=== PATIENT | male | born 1960 | race Caucasian/White ===

== ENCOUNTER → 2017-12-17 12:34 | Outpatient (CLI) | payer OTHER, SELFPAY ==
[2017-12-17 13:10] LABS: Hematocrit 40.4 % (41-53); Hemoglobin 13.9 g/dL (13.5-17.5)
[2017-12-17 13:52] LABS: BUN Creatinine Ratio 26.3 (6-22); Calcium 9.5 mg/dL (8.4-10.2); Estimated Glomerular Filt Rate 44.6 mL/min (>60); Glucose 155 mg/dL (70-100); HEMOLYSIS < 15 (0-50); Sodium 140 mmol/L (137-145)
[2017-12-17 13:56] LABS: Potassium 5.7 mmol/L (3.4-5.1)
[2017-12-17 16:25] LABS: Creatinine Urine Random 158.6 mg/dL; Protein (Total) Urine Random 84 mg/dL (0-12); Protein Creatinine Ratio Urine 0.52 GRAM/24H
[2017-12-19 13:49] LABS: Parathyroid Hormone Int 49 pg/mL (14-64)
== END ==
PROVIDERS: PCP Internal Medicine; Visit Provider Student in an Organized Health Care Education/Training Program
DX: N05.9 Unspecified nephritic syndrome with unspecified morphologic changes (principal); D64.9 Anemia, unspecified; N25.81 Secondary hyperparathyroidism of renal origin; R80.9 Proteinuria, unspecified
CPT/HCPCS: 36415; 80048; 82570; 83970; 84156; 85014; 85018

== ENCOUNTER → 2017-12-20 07:12 | Outpatient (CLI) | payer OTHER, SELFPAY ==
[2017-12-20 08:36] LABS: Hematocrit 39.9 % (41-53)
[2017-12-20 09:02] LABS: BUN Creatinine Ratio 23.1 (6-22); Calcium 9.6 mg/dL (8.4-10.2); Estimated Glomerular Filt Rate 56.7 mL/min (>60); Glucose 126 mg/dL (70-100); HEMOLYSIS < 15 (0-50); Potassium 4.8 mmol/L (3.4-5.1); Sodium 142 mmol/L (137-145)
[2017-12-20 10:20] LABS: Creatinine Urine Random 81.1 mg/dL
[2017-12-20 10:29] LABS: Protein (Total) Urine Random 236 mg/dL (0-12)
[2017-12-24 14:25] LABS: Parathyroid Hormone Int 60 pg/mL (14-64)
== END ==
PROVIDERS: PCP Internal Medicine; Visit Provider Student in an Organized Health Care Education/Training Program
DX: N05.9 Unspecified nephritic syndrome with unspecified morphologic changes (principal); D64.9 Anemia, unspecified; N25.81 Secondary hyperparathyroidism of renal origin; R80.9 Proteinuria, unspecified; E87.5 Hyperkalemia
CPT/HCPCS: 36415; 80048; 82570; 83970; 84132; 84156; 85014; 85018

== ENCOUNTER → 2017-12-24 16:48 | Outpatient (CLI) | payer OTHER, SELFPAY ==
[2017-12-24 19:27] LABS: Alanine Aminotransferase 44 IU/L (21-72); Blood Urea Nitrogen 32 mg/dL (9-20); Calcium 9.3 mg/dL (8.4-10.2); Carbon Dioxide 27 mmol/L (22-32); Chloride 97 mmol/L (98-107); Cholesterol 171 mg/dL (140-199); Creatine Kinase 193 U/L (55-170); Estimated Glomerular Filt Rate 44.6 mL/min (>60); Glucose 124 mg/dL (70-100); HDL Cholesterol 44 mg/dL (40-60); HEMOLYSIS < 15 (0-50); LDL Cholesterol Calculated 91 mg/dL (<100); Potassium 4.7 mmol/L (3.4-5.1); Sodium 139 mmol/L (137-145); Triglycerides 179 mg/dL (35-150)
== END ==
PROVIDERS: PCP Internal Medicine; Visit Provider Internal Medicine Interventional Cardiology
DX: I25.110 Atherosclerotic heart disease of native coronary artery with unstable angina pectoris (principal)
CPT/HCPCS: 36415; 80048; 80061; 82550; 84460

== ENCOUNTER → 2017-12-31 16:59 | Outpatient (CLI) | payer OTHER, SELFPAY | PROVIDERS: PCP Internal Medicine; Visit Provider Student in an Organized Health Care Education/Training Program | DX: E87.5 Hyperkalemia (principal) ==

== ENCOUNTER → 2018-01-01 16:50 | Outpatient (CLI) | payer OTHER, SELFPAY ==
[2018-01-01 18:54] LABS: HEMOLYSIS < 15 (0-50)
== END ==
PROVIDERS: PCP Internal Medicine; Visit Provider Student in an Organized Health Care Education/Training Program
DX: E87.5 Hyperkalemia (principal)
CPT/HCPCS: 36415; 84132

== ENCOUNTER → 2018-03-19 08:46 | Outpatient (CLI) | payer OTHER, SELFPAY ==
[2018-03-19 10:17] LABS: Hematocrit 39.5 % (41-53); Hemoglobin 13.5 g/dL (13.5-17.5)
[2018-03-19 11:24] LABS: BUN Creatinine Ratio 26.4 (6-22); Blood Urea Nitrogen 37 mg/dL (9-20); Calcium 9.6 mg/dL (8.4-10.2); Carbon Dioxide 30 mmol/L (22-32); Chloride 100 mmol/L (98-107); Estimated Glomerular Filt Rate 51.9 mL/min (>60); Glucose 147 mg/dL (70-100); HEMOLYSIS < 15 (0-50); Potassium 4.5 mmol/L (3.4-5.1); Sodium 140 mmol/L (137-145)
[2018-03-19 12:16] LABS: Creatinine Urine Random 77.9 mg/dL; Protein (Total) Urine Random 57 mg/dL (0-12); Protein Creatinine Ratio Urine 0.73 GRAM/24H
[2018-03-21 14:30] LABS: Parathyroid Hormone Int 58 pg/mL (14-64)
== END ==
PROVIDERS: PCP Internal Medicine; Visit Provider Student in an Organized Health Care Education/Training Program
DX: N05.9 Unspecified nephritic syndrome with unspecified morphologic changes (principal); D64.9 Anemia, unspecified; R80.9 Proteinuria, unspecified
CPT/HCPCS: 36415; 80048; 82570; 83970; 84156; 85014; 85018

== ENCOUNTER → 2018-04-25 15:35 | Outpatient (CLI) | payer OTHER, SELFPAY ==
[2018-04-25 17:33] LABS: HEMOLYSIS < 15 (0-50); Potassium 4.7 mmol/L (3.4-5.1)
== END ==
PROVIDERS: PCP Internal Medicine; Visit Provider Student in an Organized Health Care Education/Training Program
DX: E87.5 Hyperkalemia (principal)
CPT/HCPCS: 36415; 84132

== ENCOUNTER → 2018-05-27 07:55 | Outpatient (CLI) | payer OTHER, SELFPAY ==
--- NOTE | 2018-05-27 | DI.NM.S_ITS ---
PROCEDURE: NM ANASTASIA PERF SPECT R&S PHARM Rest and pharmacological stress myocardial perfusion SPECT with gated imaging and ejection fraction RADIOPHARMACEUTICAL: 25.4 mCi Tc-99m tetrafosmin IV at rest and 25.5 mCi Tc-99m tetrafosmin IV at peak effect of pharmacological stress. Krg-bjm-vgbmuncy was performed. INDICATIONS: Atherosclerotic heart disease of [place] coronary TECHNIQUE: Radiopharmaceutical was injected at peak stress test, and also at rest. SPECT images were obtained. SPECT myocardial perfusion images were displayed in short axis, horizontal long axis, and vertical long axis views. Gated images were reviewed using [employer] software. COMPARISON: None. CARDIAC STRESS: Patient exercised for 7 METs and couldn't reach target heart rate as he is on metoprolol. Therefore, study was switched to lexiscan. A pharmacologic stress test was performed under the supervision of an attending staff, using an infusion of 0.4mg IV X1. Hemodynamic data: There is normal blood pressure and heart rate response to pharmacologic stress. Symptoms: The patient had anginal chest pain with exercise. Aminophylline: none EKG: Resting ECG showing sinus rhythm with non-specific T changes. With exercise, there are mild downsloping ST depressions in the inferior leads and mild to moderate downsloping depressions in the anterior leads. Rare PVCs present. FINDINGS: Raw data: There is good myocardial uptake of radiotracer. No significant motion artifacts. Huub-yn-iheha ratio is 0.42 (normal is less than 0.38 for tetrafosmin tracer). Left ventricle function: Gated images demonstrate subtle lateral wall hypokinesis. No transient ischemic dilation; TID is 1.18 (normal less than 1.3). Left ventricle resting end diastolic volume is 150 mL. Left ventricle stress ejection fraction is 55% ; normal range is above 45%. Myocardial perfusion: There is a mild resting defect in the inferior and lateral wall that worsens significantly with stress, suggesting prior infarction and significant ischemia. There is a reversible defect in the distal anterior wall and the apex, suggesting ischemia. SSS 25, SRS 10. IMPRESSION: Abnormal study consistent with prior infarction and significant ischemia. 1) Abnormal perfusion images. There is a mild resting defect in the inferior and lateral wall that worsens significantly with stress, suggesting prior infarction and significant ischemia. There is a reversible defect in the distal anterior wall and the apex, suggesting ischemia. SSS 25, SRS 10. 2) Mildly enlarged left ventricle with normal function (EF post stress 55%). 3) Lung/Heart ratio of 0.42 is mildly elevated, suggesting elevated left sided filling pressures. 4) ECG suggestive of ischemia. There are mild downsloping ST depressions in the inferior leads and mild to moderate downsloping depressions in the anterior leads. 5) Angina occurred during the exercise stress portion of the study. 6) Reduced exercise capacity (7.0 METs). Target heart rate not reached due to metoprolol use. Study switched to lexiscan. 7) Compared to the prior nuclear stress test done 06/11/2017, no significant change noted based on the report. Dictated by: Sia Rosenberg MD on 05/28/2018 at 17:15 Approved by: Sia Rosenberg MD on 05/28/2018 at 17:26
--- NOTE | 2018-05-27 09:33 | P.PCN_ITS ---
Cardiac Stress Test Report Referral & Results Date Patient Seen: 05/27/18 Time Patient Seen: 09:31 Requesting provider: Seamus Lewis Indication: Chest pain in patient with known coronary disease Rest ECG: Nonspecific interventricular conduction delay Procedure Note: Today following both written and verbal informed consent the patient was exercised according to a standard Devendra protocol patient went for a total of something over 6 min, however it was clear he was failing to achieve any blood pressure or heart rate targets because he had taken his beta-selene at direction of his resident care provider night before the procedure. Therefore this was converted to a Lexiscan treadmill. The treadmill was reduced to 1 mi an hours no elevation in he was administered Lexiscan material. He then was immediately administered the Cardiolite tracer. He spent an additional 2 and 0.5 min on the treadmill at 1 mi an hour with no elevation. He experience some mild dyspnea and leg heaviness. At that point the treadmill was stopped and he was returned to the [facility] in the supine position Over the next 3-5 minutes his dyspnea improved significantly although did not become absent His heart rate and blood pressure quickly dropped back to baseline levels with cessation of activity With exercise that was the beginning of nonspecific ST-T segment changes with downsloping ST segments in leads V2 through V4 and may be V5 and 6 flattening. In recovery there was clear T-wave inversions in these leads as well as inferior leads. Patient was also given Cardiolite through a previously started Hep-Lock IV by the nuclear criticality safety engineer approximately 1 minute prior to the cessation of exercise. Impression: Nonspecific ST changes with activity as above. However given this was terminated early because of inability of patient to meet heart rate blood pressure targets will determine ischemia status based on results of his perfusion imaging. Please note: Actual ECG tracings can be found in the PACS system.
[2018-05-27 11:25] LABS: Cholesterol 117 mg/dL (140-199); Creatine Kinase 51 U/L (55-170); HDL Cholesterol 34 mg/dL (40-60); LDL Cholesterol Calculated 51 mg/dL (<100); Triglycerides 161 mg/dL (35-150)
[2018-05-29 14:25] LABS: Aldolase 2.9 U/L (< 8.2)
== END ==
PROVIDERS: Family Provider Internal Medicine; PCP Internal Medicine; Visit Provider Internal Medicine Cardiovascular Disease
DX: I25.9 Chronic ischemic heart disease, unspecified (principal); I25.10 Atherosclerotic heart disease of native coronary artery without angina pectoris; E78.5 Hyperlipidemia, unspecified; I10 Essential (primary) hypertension; I25.2 Old myocardial infarction
CPT/HCPCS: 36415; 78452; 80061; 82085; 82550; 93016; 93017; 93018; A9502; J2785

== ENCOUNTER → 2018-07-04 10:22 | Outpatient (CLI) | payer OTHER, SELFPAY ==
[2018-07-04 12:06] LABS: Hematocrit 41.4 % (41-53); Hemoglobin 13.8 g/dL (13.5-17.5)
[2018-07-04 13:22] LABS: BUN Creatinine Ratio 22.3 (6-22); Blood Urea Nitrogen 29 mg/dL (9-20); Calcium 9.7 mg/dL (8.4-10.2); Carbon Dioxide 28 mmol/L (22-32); Chloride 101 mmol/L (98-107); Estimated Glomerular Filt Rate 56.5 mL/min (>60); Glucose 216 mg/dL (70-100); HEMOLYSIS < 15 (0-50); Sodium 141 mmol/L (137-145)
[2018-07-04 13:24] LABS: Potassium 5.6 mmol/L (3.4-5.1)
[2018-07-04 14:59] LABS: Creatinine Urine Random 156.2 mg/dL; Protein (Total) Urine Random 109 mg/dL (0-12); Protein Creatinine Ratio Urine 0.69 GRAM/24H
[2018-07-05 12:25] LABS: Parathyroid Hormone Int 13 pg/mL (14-64)
== END ==
PROVIDERS: PCP Internal Medicine; Visit Provider Student in an Organized Health Care Education/Training Program
DX: N05.9 Unspecified nephritic syndrome with unspecified morphologic changes (principal); D64.9 Anemia, unspecified; N25.81 Secondary hyperparathyroidism of renal origin; R80.9 Proteinuria, unspecified
CPT/HCPCS: 36415; 80048; 82570; 83970; 84156; 85014; 85018

== ENCOUNTER → 2018-07-17 09:13 | Outpatient (CLI) | payer OTHER, SELFPAY ==
[2018-07-17 10:24] LABS: BUN Creatinine Ratio 22.7 (6-22); Blood Urea Nitrogen 25 mg/dL (9-20); Calcium 9.7 mg/dL (8.4-10.2); Carbon Dioxide 28 mmol/L (22-32); Chloride 100 mmol/L (98-107); Estimated Glomerular Filt Rate > 60.0 mL/min (>60); Glucose 166 mg/dL (70-100); HEMOLYSIS < 15 (0-50); Sodium 140 mmol/L (137-145)
[2018-07-17 10:26] LABS: Potassium 5.5 mmol/L (3.4-5.1)
== END ==
PROVIDERS: Family Provider Internal Medicine; PCP Internal Medicine; Visit Provider Student in an Organized Health Care Education/Training Program
DX: N05.9 Unspecified nephritic syndrome with unspecified morphologic changes (principal)
CPT/HCPCS: 36415; 80048

== ENCOUNTER → 2018-08-16 09:06 | Outpatient (CLI) | payer OTHER, SELFPAY ==
[2018-08-16 09:42] LABS: BUN Creatinine Ratio 18.1 (6-22); Blood Urea Nitrogen 29 mg/dL (9-20); Calcium 9.2 mg/dL (8.4-10.2); Carbon Dioxide 28 mmol/L (22-32); Chloride 101 mmol/L (98-107); Estimated Glomerular Filt Rate 44.5 mL/min (>60); Glucose 147 mg/dL (70-100); HEMOLYSIS < 15 (0-50); Sodium 139 mmol/L (137-145)
[2018-08-16 09:53] LABS: Potassium 5.4 mmol/L (3.4-5.1)
== END ==
PROVIDERS: Family Provider Internal Medicine; PCP Internal Medicine; Visit Provider Student in an Organized Health Care Education/Training Program
DX: N05.9 Unspecified nephritic syndrome with unspecified morphologic changes (principal)
CPT/HCPCS: 36415; 80048

== ENCOUNTER → 2018-08-25 16:01 | Outpatient (CLI) | payer OTHER, SELFPAY ==
[2018-08-25 18:26] LABS: BUN Creatinine Ratio 16.8 (6-22); Blood Urea Nitrogen 32 mg/dL (9-20); Calcium 9.4 mg/dL (8.4-10.2); Carbon Dioxide 27 mmol/L (22-32); Chloride 97 mmol/L (98-107); Estimated Glomerular Filt Rate 36.5 mL/min (>60); Glucose 120 mg/dL (70-100); HEMOLYSIS < 15 (0-50); Potassium 4.7 mmol/L (3.4-5.1); Sodium 135 mmol/L (137-145)
== END ==
PROVIDERS: Family Provider Internal Medicine; PCP Internal Medicine; Visit Provider Student in an Organized Health Care Education/Training Program
DX: N05.9 Unspecified nephritic syndrome with unspecified morphologic changes (principal)
CPT/HCPCS: 36415; 80048

== ENCOUNTER → 2018-09-22 15:58 | Outpatient (CLI) | payer OTHER, SELFPAY ==
[2018-09-22 17:43] LABS: BUN Creatinine Ratio 20.7 (6-22); Blood Urea Nitrogen 29 mg/dL (9-20); Calcium 9.3 mg/dL (8.4-10.2); Carbon Dioxide 27 mmol/L (22-32); Chloride 102 mmol/L (98-107); Estimated Glomerular Filt Rate 51.9 mL/min (>60); Glucose 141 mg/dL (70-100); HEMOLYSIS < 15 (0-50); Potassium 4.7 mmol/L (3.4-5.1); Sodium 139 mmol/L (137-145)
== END ==
PROVIDERS: Family Provider Internal Medicine; PCP Internal Medicine; Visit Provider Student in an Organized Health Care Education/Training Program
DX: N05.9 Unspecified nephritic syndrome with unspecified morphologic changes (principal)
CPT/HCPCS: 36415; 80048

== ENCOUNTER → 2018-10-04 09:44 | Outpatient (CLI) | payer OTHER, SELFPAY ==
[2018-10-04 10:37] LABS: BUN Creatinine Ratio 22.3 (6-22); Blood Urea Nitrogen 29 mg/dL (9-20); Calcium 9.1 mg/dL (8.4-10.2); Carbon Dioxide 28 mmol/L (22-32); Chloride 101 mmol/L (98-107); Estimated Glomerular Filt Rate 56.5 mL/min (>60); Glucose 213 mg/dL (70-100); HEMOLYSIS < 15 (0-50); Potassium 5.1 mmol/L (3.4-5.1); Sodium 139 mmol/L (137-145)
[2018-10-04 10:52] LABS: Creatinine Urine Random 137.5 mg/dL; Protein (Total) Urine Random 62 mg/dL (0-12); Protein Creatinine Ratio Urine 0.45 GRAM/24H
[2018-10-07 13:53] LABS: Parathyroid Hormone Int 114 pg/mL (14-64)
== END ==
PROVIDERS: Family Provider Internal Medicine; PCP Internal Medicine; Visit Provider Student in an Organized Health Care Education/Training Program
DX: N05.9 Unspecified nephritic syndrome with unspecified morphologic changes (principal); R80.9 Proteinuria, unspecified; N25.81 Secondary hyperparathyroidism of renal origin
CPT/HCPCS: 36415; 80048; 82570; 83970; 84156

== ENCOUNTER → 2019-01-02 16:47 | Outpatient (CLI) | payer OTHER, SELFPAY ==
[2019-01-02 17:49] LABS: BUN Creatinine Ratio 22.1 (6-22); Blood Urea Nitrogen 31 mg/dL (9-20); Calcium 9.5 mg/dL (8.4-10.2); Carbon Dioxide 27 mmol/L (22-32); Chloride 104 mmol/L (98-107); Estimated Glomerular Filt Rate 51.9 mL/min (>60); Glucose 149 mg/dL (70-100); HEMOLYSIS < 15 (0-50); Potassium 5.3 mmol/L (3.4-5.1); Sodium 138 mmol/L (137-145)
[2019-01-02 18:46] LABS: Creatinine Urine Random 280.3 mg/dL; Protein (Total) Urine Random 86 mg/dL (0-12)
== END ==
PROVIDERS: Family Provider Internal Medicine; PCP Internal Medicine; Visit Provider Student in an Organized Health Care Education/Training Program
DX: N05.9 Unspecified nephritic syndrome with unspecified morphologic changes (principal); N25.81 Secondary hyperparathyroidism of renal origin; R80.9 Proteinuria, unspecified
CPT/HCPCS: 36415; 80048; 82570; 83970; 84156

== ENCOUNTER → 2019-01-23 14:50 | Outpatient (CLI) | payer OTHER, SELFPAY ==
[2019-01-23 16:27] LABS: HEMOLYSIS < 15 (0-50); Potassium 4.3 mmol/L (3.4-5.1)
== END ==
PROVIDERS: Family Provider Internal Medicine; PCP Internal Medicine; Visit Provider Student in an Organized Health Care Education/Training Program
DX: E87.5 Hyperkalemia (principal)
CPT/HCPCS: 36415; 84132

== ENCOUNTER → 2019-04-09 14:04 | Outpatient (CLI) | payer OTHER, SELFPAY ==
[2019-04-09 14:23] LABS: Hematocrit 40.5 % (41-53); Hemoglobin 13.9 g/dL (13.5-17.5)
[2019-04-09 14:43] LABS: BUN Creatinine Ratio 20.8 (6-22); Blood Urea Nitrogen 27 mg/dL (9-20); Calcium 9.2 mg/dL (8.4-10.2); Carbon Dioxide 28 mmol/L (22-32); Chloride 103 mmol/L (98-107); Estimated Glomerular Filt Rate 56.3 mL/min (>60); Glucose 135 mg/dL (80-110); HEMOLYSIS < 15 (0-50); Potassium 4.6 mmol/L (3.4-5.1); Sodium 140 mmol/L (137-145)
[2019-04-09 15:58] LABS: Creatinine Urine Random 124.3 mg/dL; Protein (Total) Urine Random 82 mg/dL (0-12); Protein Creatinine Ratio Urine 0.65 GRAM/24H
[2019-04-11 16:06] LABS: Parathyroid Hormone Int 97 pg/mL (14-64)
== END ==
PROVIDERS: PCP Internal Medicine; Visit Provider Student in an Organized Health Care Education/Training Program
DX: N05.9 Unspecified nephritic syndrome with unspecified morphologic changes (principal); R80.9 Proteinuria, unspecified; D64.9 Anemia, unspecified; N25.81 Secondary hyperparathyroidism of renal origin
CPT/HCPCS: 36415; 80048; 82570; 83970; 84156; 85014; 85018

== ENCOUNTER → 2019-04-10 16:19 | Outpatient (CLI) | payer OTHER, SELFPAY ==
--- NOTE | 2019-04-10 | DI.US.S_ITS ---
PROCEDURE: US RENAL COMPLETE INDICATIONS: CALCULUS OF KIDNEY TECHNIQUE: Real-time scanning was performed of the kidneys and bladder, with image documentation. COMPARISON: [facility], , RENAL COMPLETE, 11/22/2015, 14:29. FINDINGS: Kidneys: Kidneys are normal in size. Right kidney measures 10.0 cm long; left kidney measures 11.7 cm long. Right renal cortical thickness is 1.6 cm; left renal cortical thickness is 1.8 cm. Renal cortical echotexture is normal. No hydronephrosis or nephrolithiasis. No suspicious solid mass lesions. Left renal cyst measuring 17 mm. Bladder: Pre-void bladder volume is 128 mL. Post-void residual is 5 mL. Pre-void images demonstrate no intraluminal masses or stones. On pre-void images, bilateral ureteral jets are noted with color Doppler interrogation. (Of note, ureteral jets may not be detectable in up to 25% of cases due to insufficient differences in specific gravity between ureteral and bladder urine). Miscellaneous: No free pelvic fluid. IMPRESSION: Left renal cyst. No source for flank pain identified. Dictated by: Arnold SALTER Interpreted: Sonam Sanchez MD on 04/10/2019 at 17:14 Approved by: Sonam Sanchez M.D. on 04/10/2019 at 17:37
== END ==
PROVIDERS: PCP Internal Medicine; Visit Provider Internal Medicine
DX: N20.0 Calculus of kidney (principal); N28.1 Cyst of kidney, acquired
CPT/HCPCS: 76770

== ENCOUNTER → 2019-04-24 16:48 | Outpatient (CLI) | payer OTHER, SELFPAY ==
[2019-04-24 17:37] LABS: Hematocrit 40.4 % (41-53); Hemoglobin 13.7 g/dL (13.5-17.5)
[2019-04-24 17:53] LABS: BUN Creatinine Ratio 28.8 (6-22); Blood Urea Nitrogen 46 mg/dL (9-20); Calcium 9.7 mg/dL (8.4-10.2); Carbon Dioxide 25 mmol/L (22-32); Chloride 102 mmol/L (98-107); Estimated Glomerular Filt Rate 44.3 mL/min (>60); Glucose 107 mg/dL (80-110); HEMOLYSIS < 15 (0-50); Potassium 4.7 mmol/L (3.4-5.1); Sodium 140 mmol/L (137-145)
[2019-04-26 16:09] LABS: Creatinine Urine Random 181.7 mg/dL; Protein (Total) Urine Random 128 mg/dL (0-12)
[2019-04-28 14:56] LABS: Parathyroid Hormone Int 24 pg/mL (14-64)
== END ==
PROVIDERS: PCP Internal Medicine; Visit Provider Student in an Organized Health Care Education/Training Program
DX: N05.9 Unspecified nephritic syndrome with unspecified morphologic changes (principal); D64.9 Anemia, unspecified; N25.81 Secondary hyperparathyroidism of renal origin; R80.9 Proteinuria, unspecified
CPT/HCPCS: 36415; 80048; 82570; 83970; 84156; 85014; 85018

== ENCOUNTER 2019-05-04 17:34 | Emergency (ER) | payer OTHER, SELFPAY ==
[2019-05-04 17:35] VITALS: BP 125/79; PULSE 65; RESP 16; TEMP 36.7; O2SAT 95; BMI 30.7
--- NOTE | 2019-05-04 17:52 | DI.RAD.S_ITS ---
PROCEDURE: XR CHEST 1V INDICATIONS: syncope TECHNIQUE: One view of the chest was acquired. COMPARISON: [facility], , CHEST 1 VIEW, 07/13/2017, 12:31. FINDINGS: Surgical changes and devices: None. Lungs and pleura: Lungs are clear. No pleural effusions or pneumothorax. Mediastinum: Mediastinal contours appear normal. Heart size is normal. Bones and chest wall: No suspicious bony lesions. Overlying soft tissues appear unremarkable. IMPRESSION: No acute cardiopulmonary pathology. Dictated by: Aleksandr Aiken M.D. on 05/04/2019 at 18:46 Approved by: Aleksandr Aiken M.D. on 05/04/2019 at 18:46
--- NOTE | 2019-05-04 17:57 | PC.NURSE ---
Patient was receiving electrical stimulation for bilateral shoulder PT. Patient was sitting up right in chair and felt things go dark PT noticed patient stopped talking and was not responding for a short period of time. Patient recalls hearing them call his name. patient arrives feeling very fatigued. Denies chest pain or SOB at present. States some nausea before the event. This was patients first PT appointment and first time with this electrical therapy. patient states it was a 15min session where they had heat pads on his neck.
[2019-05-04 18:01] LABS: Add Manual Diff / Slide Review NO; Basophils Absolute Auto 100 /uL (0-100); Basophils Percent Auto 0.8 % (0-2); Eosinophils Absolute Auto 200 /uL (0-450); Eosinophils Percent Auto 1.4 % (2-4); Hematocrit 40.9 % (41-53); Hemoglobin 14.1 g/dL (13.5-17.5); Lymphocytes Absolute Auto 3500 /uL (1100-4500); Lymphocytes Percent Auto 25.8 % (25-40); Mean Corpuscular HGB Conc 34.5 % (30-36); Mean Corpuscular Hemoglobin 30.6 PG (26-34); Mean Corpuscular Volume 88.7 fL (80-100); Monocytes Absolute Auto 1000 /uL (0-900); Monocytes Percent Auto 7.2 % (3-14); Neutrophils Absolute Auto 8700 /uL (1500-7000); Neutrophils Percent Auto 64.8 % (50-75); Platelet Count 291 X10^3/uL (150-400); Prothrombin Time 11.4 SECONDS (10.1-12.7); Red Blood Cell Count 4.62 X10^6/uL (4.5-5.9); Red Cell Distribution Width 13.3 % (11.6-14.8); White Blood Cell Count 13.4 X10^3/uL (4.5-11.0)
[2019-05-04 18:04] LABS: PTT Partial Thromboplastin Tim 24 SECONDS (26.4-36.2)
[2019-05-04 18:06] LABS: Alanine Aminotransferase 25 IU/L (21-72); Albumin 4.4 g/dL (3.5-5.0); Albumin Globulin Ratio 1.4 (1.0-2.8); Alkaline Phosphatase 55 U/L (38-126); Aspartate Aminotransferase 30 IU/L (17-59); Bilirubin Total 0.7 mg/dL (0.2-1.3); Blood Urea Nitrogen 34 mg/dL (9-20); Calcium 9.1 mg/dL (8.4-10.2); Carbon Dioxide 24 mmol/L (22-32); Chloride 100 mmol/L (98-107); Creatine Kinase 75 U/L (55-170); Estimated Glomerular Filt Rate 34.3 mL/min (>60); Globulin 3.2 g/dL (1.7-4.1); Glucose 169 mg/dL (80-110); HEMOLYSIS 34 (0-50); Potassium 4.8 mmol/L (3.4-5.1); Sodium 138 mmol/L (137-145); Total Protein 7.6 g/dL (6.3-8.2)
[2019-05-04 18:18] LABS: Troponin I < 0.012 ng/mL (0.01-0.034)
--- NOTE | 2019-05-04 18:20 | ED_ITS ---
HPI - General Adult General Chief complaint: Syncope Stated complaint: syncope Time Seen by Provider: 05/04/19 17:52 Source: patient and EMS Mode of arrival: EMS Limitations: no limitations History of Present Illness HPI narrative: A 59-year-old male here for evaluation of an episode that occurred prior to arrival here in the ER. Patient was at his orthopedic physical therapy appointment. He states that this was his 1st physical therapy appointment for bilateral shoulder issues. Apparently he was undergoing tens stimulation when he apparently became very lightheaded. He stated that just prior to this event he was very nauseated. He did not vomit. Had no chest pain or palpitations or headache. he is unsure if he exactly lost consciousness however the next thing he remembers was a physical therapist calling his name. No loss of bowel or bladder. No reported seizure-like activity. Upon my evaluation patient stated that he he felt tired. He did admit that he did not drink water as he normally does today. Related Data Home Medications Medication Instructions Recorded Confirmed aspirin 81 mg PO DAILY #0 06/23/08 05/04/19 amlodipine 10 mg PO DAILY #0 07/06/16 05/04/19 glipizide [Glucotrol XL] 2.5 mg PO DAILY #0 08/16/16 05/04/19 allopurinol 100 mg tablet 100 mg PO DAILY 07/16/18 05/04/19 cholecalciferol (vitamin D3) 2,000 2,000 unit PO DAILY 07/16/18 05/04/19 unit capsule clopidogrel 75 mg tablet 75 mg PO DAILY 07/16/18 05/04/19 coQ10 (ubiquinol) 1 cap PO DAILY 07/16/18 05/04/19 isosorbide mononitrate 60 mg 60 mg PO DAILY 07/16/18 02/18/19 tablet,extended release 24 hr levothyroxine 125 mcg capsule 125 mcg PO DAILY 07/16/18 05/04/19 metoprolol succinate 25 mg capsule 25 mg PO DAILY 07/16/18 05/04/19 sprinkle, ext. release 24 hr omega-3 acid ethyl esters 1 gram 1 cap PO DAILY 07/16/18 05/04/19 capsule rosuvastatin 10 mg tablet 20 mg PO DAILY 07/16/18 02/18/19 hydrochlorothiazide 25 mg PO BID 05/04/19 levothyroxine 224 mcg PO DAILY 05/04/19 losartan 75 mg PO DAILY 05/04/19 05/04/19 patiromer calcium sorbitex 8.4 g PO DAILY 05/04/19 05/04/19 [Veltassa] Allergies Allergy/AdvReac Type Severity Reaction Status Date / Time HAKAN Inhibitors AdvReac Intermediate Verified 07/16/18 08:34 [HAKAN INHIBITORS] simvastatin [SIMVASTATIN] AdvReac Intermediate muscle Verified 07/16/18 08:34 aches, upset stomach Review of Systems Constitutional Constitutional: Denies fever(s), Denies headache(s) and Denies weakness ENT Ears, Nose, Mouth, and Throat: Denies vertigo, Reports dizziness, Denies headache(s) and Denies disequilibrium Cardiovascular Cardiovascular: Denies chest pain, Denies syncope and Denies dyspnea Respiratory Respiratory: Denies dyspnea Gastrointestinal Gastrointestinal: Denies abdominal pain, Reports nausea and Denies vomiting Genitourinary Genitourinary: Denies dysuria Musculoskeletal Musculoskeletal: Denies myalgias and Denies arthralgias Integumentary/Breasts Skin/Breast: Denies lesions and Denies rash Neurologic Neurologic: Denies behavioral changes, Denies vertigo, Reports dizziness, Denies syncope, Denies headache(s), Denies disequilibrium and Denies weakness Psychiatric Psychiatric: Denies behavioral changes Hematologic/Lymphatic Hematologic/Lymphatic: Denies easy bleeding and Denies easy bruising [facility] Medical History CVA (cerebral vascular accident) (Acute) Hypertension (Acute) Social History Smoking Status: Never smoker Social History Smoking Status: Never smoker Exam Initial Vital Signs Initial Vital Signs: Vital Signs Temperature 98.1 F 05/04/19 17:35 Pulse Rate 65 05/04/19 17:35 Respiratory Rate 16 05/04/19 17:35 Blood Pressure 125/79 05/04/19 17:35 Pulse Oximetry 95 05/04/19 17:35 Const General: cooperative, healthy appearing and comfortable Eyes Other: Left-sided visual field deficit which is not new Resp Effort & Inspection: normal respiratory effort Auscultation: clear to auscultation bilaterally Cardio Rate: regular rate Rhythm: regular rhythm Skin Lesions: no lesions Rashes: no rashes Neuro General: alert, awake and oriented x3 Cranial Nerves: PERRL and other (Left-sided visual field deficit) Cognition: normal cognition Speech: speech normal Sensory Exam: no sensory deficits noted Extrem General: normal to inspection and capillary refill normal Scores GCS [place] coma scale eye opening: Spontaneous [place] coma scale verbal response: Orientated [place] coma scale motor response: Obey commands [place] coma scale total score: 15 Course Orders Ordered: ED Orders 05/04/19 17:30 B Type Natriuretic Peptide Stat Complete Blood Count AUTO DIFF Stat Comprehensive Metabolic Panel Stat Partial Thromboplastin Time Stat Prothrombin Time INR Stat Troponin & CK Cardiac Panel Stat 05/04/19 17:52 XR chest 1V Stat 05/04/19 18:31 CT head/brain wo con Stat 05/04/19 19:33 Troponin I Stat Discontinued Medications Sodium Chloride (Normal Saline 0.9%) 1,000 mls @ 1,000 mls/hr IV BOLUS ONE Stop: 05/04/19 18:51 Last Infusion: 05/04/19 20:03 Dose: 0 mls/hr Documented by: Admin: 05/04/19 18:52 Dose: 1,000 mls/hr Documented by: JACOBO Vital Signs Vital signs: Vital Signs - 8 hr 05/04/19 17:35 05/04/19 20:30 Temperature 98.1 F 97.9 F Pulse Rate 65 63 Respiratory Rate 16 17 Blood Pressure 125/79 135/68 Pulse Oximetry 95 96 Medical Decision Making Lab Data Lab results reviewed: Yes I reviewed the patient's lab results. Result diagrams: 05/04/19 17:30 05/04/19 17:30 Labs: Lab Results 05/04/19 05/04/19 05/04/19 Range/Units 17:30 17:30 17:30 WBC 13.4 H (4.5-11.0) X10^3/uL RBC 4.62 (4.5-5.9) X10^6/uL Hgb 14.1 (13.5-17.5) g/dL Hct 40.9 L (41-53) % MCV 88.7 (80-100) fL MCH 30.6 (26-34) PG MCHC 34.5 (30-36) % RDW 13.3 (11.6-14.8) % Plt Count 291 (150-400) X10^3/uL Neut % (Auto) 64.8 (50-75) % Lymph % (Auto) 25.8 (25-40) % Leslie % (Auto) 7.2 (3-14) % Eos % (Auto) 1.4 L (2-4) % Baso % (Auto) 0.8 (0-2) % Neut # (Auto) 8700 H (8286-1812) /uL Lymph # (Auto) 3500 (7031-0608) /uL Leslie # (Auto) 1000 H (0-900) /uL Eos # (Auto) 200 (0-450) /uL Baso # (Auto) 100 (0-100) /uL PT 11.4 (10.1-12.7) SECONDS INR 1.0 (0.9-1.3) APTT 24 L (26.4-36.2) SECONDS Sodium 138 (137-145) mmol/L Potassium 4.8 (3.4-5.1) mmol/L Chloride 100 (98-107) mmol/L Carbon Dioxide 24 (22-32) mmol/L BUN 34 H (9-20) mg/dL Creatinine 2.00 H (0.66-1.25) mg/dL Estimated GFR 34.3 L (>60) mL/min BUN/Creatinine Ratio 17.0 (6-22) Glucose 169 H (80-110) mg/dL Calcium 9.1 (8.4-10.2) mg/dL Total Bilirubin 0.7 (0.2-1.3) mg/dL AST 30 (17-59) IU/L ALT 25 (21-72) IU/L Alkaline Phosphatase 55 (38-126) U/L Total Creatine Kinase 75 (55-170) U/L CK-MB (CK-2) TNP CK-MB (CK-2) Rel Index TNP Troponin I < 0.012 (0.01-0.034) ng/mL B-Natriuretic Peptide < 100 (<100) Total Protein 7.6 (6.3-8.2) g/dL Albumin 4.4 (3.5-5.0) g/dL Globulin 3.2 (1.7-4.1) g/dL Albumin/Globulin Ratio 1.4 (1.0-2.8) 05/04/19 Range/Units 19:33 WBC (4.5-11.0) X10^3/uL RBC (4.5-5.9) X10^6/uL Hgb (13.5-17.5) g/dL Hct (41-53) % MCV (80-100) fL MCH (26-34) PG MCHC (30-36) % RDW (11.6-14.8) % Plt Count (150-400) X10^3/uL Neut % (Auto) (50-75) % Lymph % (Auto) (25-40) % Leslie % (Auto) (3-14) % Eos % (Auto) (2-4) % Baso % (Auto) (0-2) % Neut # (Auto) (9538-1074) /uL Lymph # (Auto) (3493-8303) /uL Leslie # (Auto) (0-900) /uL Eos # (Auto) (0-450) /uL Baso # (Auto) (0-100) /uL PT (10.1-12.7) SECONDS INR (0.9-1.3) APTT (26.4-36.2) SECONDS Sodium (137-145) mmol/L Potassium (3.4-5.1) mmol/L Chloride (98-107) mmol/L Carbon Dioxide (22-32) mmol/L BUN (9-20) mg/dL Creatinine (0.66-1.25) mg/dL Estimated GFR (>60) mL/min BUN/Creatinine Ratio (6-22) Glucose (80-110) mg/dL Calcium (8.4-10.2) mg/dL Total Bilirubin (0.2-1.3) mg/dL AST (17-59) IU/L ALT (21-72) IU/L Alkaline Phosphatase (38-126) U/L Total Creatine Kinase (55-170) U/L CK-MB (CK-2) CK-MB (CK-2) Rel Index Troponin I < 0.012 (0.01-0.034) ng/mL B-Natriuretic Peptide (<100) Total Protein (6.3-8.2) g/dL Albumin (3.5-5.0) g/dL Globulin (1.7-4.1) g/dL Albumin/Globulin Ratio (1.0-2.8) Imaging Data Chest x-ray: Radiologist's impression: [address] [address] XRay Report Signed Patient: Poncho Navarro GMR#: [id number] : 9Acct:[id number] Age/Sex: 59 / MDate of Service: 05/04/19 Loc: ED Accession Number: [id number] Procedure: XR chest 1V Ordering Provider: Michelle Stuart D.O. PROCEDURE: XR CHEST 1V INDICATIONS: syncope TECHNIQUE: One view of the chest was acquired. COMPARISON: [facility], CR, CHEST 1 VIEW, 07/13/2017, 12:31. FINDINGS: Surgical changes and devices: None. Lungs and pleura: Lungs are clear. No pleural effusions or pneumothorax. Mediastinum: Mediastinal contours appear normal. Heart size is normal. Bones and chest wall: No suspicious bony lesions. Overlying soft tissues appear unremarkable. IMPRESSION: No acute cardiopulmonary pathology. Dictated by: Aleksandr Aiken M.D. on 05/04/2019 at 18:46 Approved by: Aleksandr Aiken M.D. on 05/04/2019 at 18:46 CT scan - head: Radiologist's impression: [address] [address] [address] Scan Report Signed Patient: Poncho Navarro R#: [id number] : 9Acct:[id number] Age/Sex: 59 / MDate of Service: 05/04/19 Loc: ED Accession Number: [id number] Procedure: CT head/brain wo con Ordering Provider: Sunny Mccartney D.O. PROCEDURE: CT HEAD/BRAIN WO CON INDICATIONS: hx of CVA with dizzy TECHNIQUE: Noncontrast 4.5 mm thick angled axial sections acquired from the foramen magnum to the vertex, with coronal and sagittal reformats. For radiation dose reduction, the following was used: automated exposure control, adjustment of mA and/or kV according to patient size. COMPARISON: [facility], CT, HEAD WITHOUT CONTRAST, 03/05/2014, 17:28. FINDINGS: Image quality: Excellent. CSF spaces: Basal cisterns are patent. No extra-axial fluid collections. The ventricles are symmetric in size and shape. Brain: No intracranial bleeds or masses. Old infarction in the posterior medial right temporal/parietal and occipital lobe is again seen unchanged from prior study. There is cerebral volume loss for age, with resultant ventricular and sulcal prominence. There are periventricular and deep white matter chronic small vessel ischemic changes. There is intracranial internal carotid artery atherosclerosis. Skull and face: Calvarium and visualized facial bones appear intact, without suspicious lesions. Sinuses: Visualized sinuses and mastoids are clear. IMPRESSION: 1. No CT evidence of acute intracranial pathology. 2. 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 Dictated by: Aleksandr Aiken M.D. on 05/04/2019 at 18:59 Approved by: Aleksandr Aiken M.D. on 05/04/2019 at 19:01 ECG Data Attestation: I personally reviewed and interpreted this ECG as follows: Prior ECG tracings: not available for review Interpretation: Sinus rhythm Ventricular rate is 66 Normal axis Normal QRS Inverted T-waves [address] T wave changes MDM Narrative Medical decision making narrative: Patient's head CT was unremarkable. EKG shows inverted T-waves 1 aVL V2 and V4. His troponin the negative x2. Patient has had no ectopy on his cardiac rhythm. I do not think that his symptoms are consistent with a seizure. Head CT is not consistent with CVA. He has a left- sided visual field deficit which is residual from his prior CVA and this is not new. He has a normal neurologic exam otherwise. Low suspicion for TIA. He stated that he feels much better after receiving the fluids. He also has slight bump in his creatinine and a decrease in his GFR. He does see a kidney provider for chronic kidney disease. I feel that we can hold on further workup for now. I do suspect that his symptoms are the result of being dehydrated. We also discussed the possibility of an abnormal heart rhythm. Informed him that he should talk with his primary doctor/computer aided design drafter to discuss Holter monitoring. He expressed understanding and agreement with plan. Discharge Plan Departure Patient Disposition: Home Clinical Impression: Pre-syncope Discharge Date/Time: 05/04/19 20:31 Instructions: DI for Dizziness-Nonvertigo Activity Restrictions/Additional Instructions: Recommend that you continue to increase your fluid intake. Continue all of your medications as directed. You have no restrictions on your activity. Contact your primary provider and your computer aided design drafter to discuss the indications for a Holter monitor. Also recommend that you contact your photo checker and assembler to let them know that your kidney function was slightly worse today. Return to the emergency department for any new or worsening symptoms Prescriptions: No Action levothyroxine 125 mcg capsule 125 mcg PO DAILY RF: 0 clopidogrel 75 mg tablet 75 mg PO DAILY RF: 0 isosorbide mononitrate 60 mg tablet extended release 24 hr 60 mg PO DAILY RF: 0 metoprolol succinate 25 mg cap,sprinkle,ER 24hr dose pack 25 mg PO DAILY RF: 0 rosuvastatin 10 mg tablet 20 mg PO DAILY RF: 0 allopurinol 100 mg tablet 100 mg PO DAILY RF: 0 coQ10 (ubiquinol) 1 cap PO DAILY RF: 0 omega-3 acid ethyl esters 1 gram capsule 1 cap PO DAILY RF: 0 cholecalciferol (vitamin D3) 2,000 unit capsule 2,000 unit PO DAILY RF: 0 aspirin 81 mg Tablet,Delayed Release (Dr/Ec) 81 mg PO DAILY Qty: 0 RF: 0 amlodipine 10 MG tablet 10 mg PO DAILY Qty: 0 RF: 0 glipizide [Glucotrol XL] 2.5 MG tablet extended release 24hr 2.5 mg PO DAILY Qty: 0 RF: 0 losartan 50 mg tablet 75 mg PO DAILY RF: 0 hydrochlorothiazide 25 mg tablet 25 mg PO BID RF: 0 levothyroxine 112 mcg tablet 224 mcg PO DAILY RF: 0 Veltassa 8.4 gram powder in packet 8.4 g PO DAILY RF: 0 Referrals: Mike Correa MD [Primary Care Provider] -
[2019-05-04 18:21] LABS: B Type Natriuretic Peptide < 100 (<100)
--- NOTE | 2019-05-04 18:31 | DI.CT.S_ITS ---
PROCEDURE: CT HEAD/BRAIN WO CON INDICATIONS: hx of CVA with dizzy TECHNIQUE: Noncontrast 4.5 mm thick angled axial sections acquired from the foramen magnum to the vertex, with coronal and sagittal reformats. For radiation dose reduction, the following was used: automated exposure control, adjustment of mA and/or kV according to patient size. COMPARISON: [facility], CT, HEAD WITHOUT CONTRAST, 03/05/2014, 17:28. FINDINGS: Image quality: Excellent. CSF spaces: Basal cisterns are patent. No extra-axial fluid collections. The ventricles are symmetric in size and shape. Brain: No intracranial bleeds or masses. Old infarction in the posterior medial right temporal/parietal and occipital lobe is again seen unchanged from prior study. There is cerebral volume loss for age, with resultant ventricular and sulcal prominence. There are periventricular and deep white matter chronic small vessel ischemic changes. There is intracranial internal carotid artery atherosclerosis. Skull and face: Calvarium and visualized facial bones appear intact, without suspicious lesions. Sinuses: Visualized sinuses and mastoids are clear. IMPRESSION: 1. No CT evidence of acute intracranial pathology. 2. 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 Dictated by: Aleksandr Aiken M.D. on 05/04/2019 at 18:59 Approved by: Aleksandr Aiken M.D. on 05/04/2019 at 19:01
[2019-05-04] MEDS: SODIUM CHLORIDE 0.9% 1,000 ML 1000 ML IV (18:52)
[2019-05-04 20:00] LABS: Troponin I < 0.012 ng/mL (0.01-0.034)
[2019-05-04 20:30] VITALS: BP 135/68; PULSE 63; RESP 17; TEMP 36.6; O2SAT 96
== END 2019-05-04 20:31 | disposition home or self-care (01) ==
PROVIDERS: Emergency Medicine; Emergency Provider Emergency Medicine; PCP Internal Medicine
DX: R55 Syncope and collapse (principal)
CPT/HCPCS: 36415; 70450; 71045; 80053; 82550; 83880; 84484; 85025; 85610; 85730; 93005; 96360; 99283; 99285

== ENCOUNTER → 2019-07-30 10:53 | Outpatient (CLI) | payer OTHER, SELFPAY ==
[2019-07-30 12:11] LABS: Hematocrit 43.2 % (41-53); Hemoglobin 14.7 g/dL (13.5-17.5)
[2019-07-30 12:45] LABS: BUN Creatinine Ratio 22.5 (6-22); Blood Urea Nitrogen 27 mg/dL (9-20); Calcium 9.9 mg/dL (8.4-10.2); Carbon Dioxide 33 mmol/L (22-32); Chloride 96 mmol/L (98-107); Estimated Glomerular Filt Rate > 60.0 mL/min (>60); Glucose 337 mg/dL (80-110); HEMOLYSIS < 15 (0-50); Potassium 4.6 mmol/L (3.4-5.1); Sodium 139 mmol/L (137-145)
[2019-07-30 15:04] LABS: Creatinine Urine Random 80.2 mg/dL; Protein (Total) Urine Random 165 mg/dL (0-12); Protein Creatinine Ratio Urine 2.05 GRAM/24H
[2019-08-01 17:00] LABS: Parathyroid Hormone Int 10 pg/mL (14-64)
== END ==
PROVIDERS: PCP Internal Medicine; Visit Provider Student in an Organized Health Care Education/Training Program
DX: D64.9 Anemia, unspecified (principal); N25.81 Secondary hyperparathyroidism of renal origin; R80.9 Proteinuria, unspecified; N05.9 Unspecified nephritic syndrome with unspecified morphologic changes
CPT/HCPCS: 36415; 80048; 82570; 83970; 84156; 85014; 85018

== ENCOUNTER → 2019-07-31 10:39 | Outpatient (CLI) | payer OTHER, SELFPAY | PROVIDERS: PCP Internal Medicine; Visit Provider Physician Assistant | DX: J02.9 Acute pharyngitis, unspecified (principal) | CPT/HCPCS: 87070; 87077 ==

== ENCOUNTER → 2019-09-04 09:34 | Outpatient (CLI) | payer OTHER, SELFPAY ==
[2019-09-04 10:26] LABS: BUN Creatinine Ratio 20.8 (6-22); Blood Urea Nitrogen 25 mg/dL (9-20); Calcium 9.6 mg/dL (8.4-10.2); Carbon Dioxide 27 mmol/L (22-32); Chloride 102 mmol/L (98-107); Estimated Glomerular Filt Rate > 60.0 mL/min (>60); Glucose 279 mg/dL (80-110); HEMOLYSIS < 15 (0-50); Potassium 4.9 mmol/L (3.4-5.1); Sodium 138 mmol/L (137-145)
[2019-09-04 10:54] LABS: Creatinine Urine Random 177.1 mg/dL; Protein (Total) Urine Random 323 mg/dL (0-12); Protein Creatinine Ratio Urine 1.82 GRAM/24H
[2019-09-08 13:29] LABS: Parathyroid Hormone Int 60 pg/mL (14-64)
== END ==
PROVIDERS: PCP Internal Medicine; Referring Provider Student in an Organized Health Care Education/Training Program; Visit Provider Student in an Organized Health Care Education/Training Program
DX: N05.9 Unspecified nephritic syndrome with unspecified morphologic changes (principal); N25.81 Secondary hyperparathyroidism of renal origin; R80.9 Proteinuria, unspecified
CPT/HCPCS: 36415; 80048; 82570; 83970; 84156

== ENCOUNTER → 2019-10-17 10:13 | Outpatient (CLI) | payer OTHER, SELFPAY ==
[2019-10-17 12:37] LABS: Cholesterol 114 mg/dL (140-199); HDL Cholesterol 38 mg/dL (40-60); LDL Cholesterol Calculated 49 mg/dL (<100); Triglycerides 134 mg/dL (35-150)
== END ==
PROVIDERS: Referring Provider Internal Medicine Cardiovascular Disease; Visit Provider Internal Medicine Cardiovascular Disease
DX: E78.5 Hyperlipidemia, unspecified (principal)
CPT/HCPCS: 36415; 80061

== ENCOUNTER → 2019-12-25 16:28 | Outpatient (CLI) | payer OTHER, SELFPAY ==
[2019-12-25 17:14] LABS: BUN Creatinine Ratio 25.3 (6-22); Blood Urea Nitrogen 46 mg/dL (9-20); Calcium 9.2 mg/dL (8.4-10.2); Carbon Dioxide 26 mmol/L (22-32); Chloride 103 mmol/L (98-107); Estimated Glomerular Filt Rate 38.2 mL/min (>60); Glucose 93 mg/dL (80-110); HEMOLYSIS < 15 (0-50); Potassium 4.7 mmol/L (3.4-5.1); Sodium 139 mmol/L (137-145)
[2019-12-25 17:43] LABS: Creatinine Urine Random 108.4 mg/dL; Protein (Total) Urine Random 61 mg/dL (0-12); Protein Creatinine Ratio Urine 0.56 GRAM/24H
[2020-01-04 10:24] LABS: Parathyroid Hormone Int 66 pg/mL
== END ==
PROVIDERS: Referring Provider Student in an Organized Health Care Education/Training Program; Visit Provider Student in an Organized Health Care Education/Training Program
DX: N05.9 Unspecified nephritic syndrome with unspecified morphologic changes (principal); N25.81 Secondary hyperparathyroidism of renal origin; R80.9 Proteinuria, unspecified
CPT/HCPCS: 36415; 80048; 82570; 83970; 84156

== ENCOUNTER → 2020-01-23 08:27 | Outpatient (CLI) | payer OTHER, SELFPAY ==
[2020-01-23 11:15] LABS: Aspartate Aminotransferase 26 IU/L (17-59); BUN Creatinine Ratio 27.5 (6-22); Blood Urea Nitrogen 44 mg/dL (9-20); Calcium 10.6 mg/dL (8.4-10.2); Carbon Dioxide 30 mmol/L (22-32); Chloride 102 mmol/L (98-107); Cholesterol 128 mg/dL (140-199); Estimated Glomerular Filt Rate 44.3 mL/min (>60); Glucose 213 mg/dL (80-110); HDL Cholesterol 36 mg/dL (40-60); HEMOLYSIS < 15 (0-50); LDL Cholesterol Calculated 56 mg/dL (<100); Sodium 139 mmol/L (137-145); Triglycerides 181 mg/dL (35-150)
[2020-01-23 11:19] LABS: Hemoglobin A1C% w Est Avg Glu 8.2 % (4.0-6.0)
[2020-01-23 12:14] LABS: Potassium 5.8 mmol/L (3.4-5.1)
== END ==
PROVIDERS: Referring Provider Internal Medicine; Visit Provider Internal Medicine
DX: E11.9 Type 2 diabetes mellitus without complications (principal); E78.2 Mixed hyperlipidemia; I10 Essential (primary) hypertension
CPT/HCPCS: 36415; 80048; 80061; 83036; 84443; 84450

== ENCOUNTER → 2020-05-30 16:05 | Outpatient (CLI) | payer OTHER, SELFPAY ==
[2020-05-30 17:15] LABS: Hematocrit 39.9 % (41-53); Hemoglobin 13.5 g/dL (13.5-17.5)
[2020-05-30 17:41] LABS: Blood Urea Nitrogen 44 mg/dL (9-20); Calcium 9.1 mg/dL (8.4-10.2); Carbon Dioxide 34 mmol/L (22-32); Chloride 98 mmol/L (98-107); Estimated Glomerular Filt Rate 41.5 mL/min (>60); Glucose 119 mg/dL (80-110); HEMOLYSIS 21 (0-50); Potassium 4.7 mmol/L (3.4-5.1); Sodium 137 mmol/L (137-145)
[2020-05-30 17:50] LABS: Creatinine Urine Random 165.3 mg/dL; Protein (Total) Urine Random 74 mg/dL (0-12); Protein Creatinine Ratio Urine 0.44 GRAM/24H
[2020-05-31 14:38] LABS: Parathyroid Hormone Int 73 pg/mL (15-65)
== END ==
PROVIDERS: Referring Provider Student in an Organized Health Care Education/Training Program; Visit Provider Student in an Organized Health Care Education/Training Program
DX: N05.9 Unspecified nephritic syndrome with unspecified morphologic changes (principal); D64.9 Anemia, unspecified; N25.81 Secondary hyperparathyroidism of renal origin; R80.9 Proteinuria, unspecified
CPT/HCPCS: 36415; 80048; 82570; 83970; 84156; 85014; 85018

== ENCOUNTER → 2020-11-10 15:50 | Outpatient (CLI) | payer OTHER, SELFPAY ==
[2020-11-10 16:23] LABS: Hematocrit 40.8 % (41-53); Hemoglobin 13.6 g/dL (13.5-17.5)
[2020-11-10 16:42] LABS: BUN Creatinine Ratio 32.2 (6-22); Blood Urea Nitrogen 48 mg/dL (9-20); Calcium 9.5 mg/dL (8.4-10.2); Carbon Dioxide 27 mmol/L (22-32); Chloride 102 mmol/L (98-107); Estimated Glomerular Filt Rate 47.9 mL/min (>60); Glucose 173 mg/dL (80-110); HEMOLYSIS < 15 (0-50); Potassium 4.5 mmol/L (3.4-5.1); Sodium 138 mmol/L (137-145)
[2020-11-10 17:37] LABS: Creatinine Urine Random 131.7 mg/dL; Protein (Total) Urine Random 79 mg/dL (0-12); Protein Creatinine Ratio Urine 0.59 GRAM/24H
[2020-11-11 08:10] LABS: Parathyroid Hormone Int 100 pg/mL (15-65)
== END ==
PROVIDERS: Referring Provider Student in an Organized Health Care Education/Training Program; Visit Provider Student in an Organized Health Care Education/Training Program
DX: N05.9 Unspecified nephritic syndrome with unspecified morphologic changes (principal); D64.9 Anemia, unspecified; N25.81 Secondary hyperparathyroidism of renal origin; R80.9 Proteinuria, unspecified
CPT/HCPCS: 36415; 80048; 82570; 83970; 84156; 85014; 85018

== ENCOUNTER → 2021-04-28 16:33 | Outpatient (CLI) | payer OTHER, SELFPAY ==
[2021-04-28 18:23] LABS: Hematocrit 42.2 % (41-53); Hemoglobin 14.2 g/dL (13.5-17.5)
[2021-04-28 18:36] LABS: Blood Urea Nitrogen 40 mg/dL (9-20); Calcium 9.2 mg/dL (8.4-10.2); Carbon Dioxide 27 mmol/L (22-32); Chloride 102 mmol/L (98-107); Estimated Glomerular Filt Rate 48.2 mL/min (>60); Glucose 92 mg/dL (80-110); HEMOLYSIS 20 (0-50); Potassium 4.3 mmol/L (3.4-5.1); Sodium 138 mmol/L (137-145)
[2021-04-28 18:40] LABS: Creatinine Urine Random 160.1 mg/dL; Protein (Total) Urine Random 95 mg/dL (0-12); Protein Creatinine Ratio Urine 0.59 GRAM/24H
[2021-04-29 10:25] LABS: Parathyroid Hormone Int 70 pg/mL (15-65)
== END ==
PROVIDERS: PCP Internal Medicine; Referring Provider Student in an Organized Health Care Education/Training Program; Visit Provider Student in an Organized Health Care Education/Training Program
DX: N05.9 Unspecified nephritic syndrome with unspecified morphologic changes (principal); D64.9 Anemia, unspecified; N25.81 Secondary hyperparathyroidism of renal origin; R80.9 Proteinuria, unspecified
CPT/HCPCS: 36415; 80048; 82570; 83970; 84156; 85014; 85018

== ENCOUNTER → 2021-05-18 07:55 | Outpatient (CLI) | payer OTHER, SELFPAY ==
[2021-05-18 09:08] LABS: Magnesium 1.7 mg/dL (1.6-2.3)
== END ==
PROVIDERS: PCP Internal Medicine; Referring Provider Internal Medicine Cardiovascular Disease; Visit Provider Internal Medicine Cardiovascular Disease
DX: I10 Essential (primary) hypertension (principal)
CPT/HCPCS: 36415; 83735

== ENCOUNTER → 2021-05-22 09:03 | Outpatient (CLI) | payer OTHER, SELFPAY ==
--- NOTE | 2021-05-22 | DI.ECHO.S_ITS ---
[facility] +---------+ : : [address] : [place] : : : : [id number] : : : : Phone: [phone]+ Echocardiogram Report + + :Name: KALIN PATEL Study Date: 05/22/2021 Height: 72 in : :[facility] ReadingLocation: Weight: 232 lb : : Gender: Male BSA: 2.3 m2 : :: 1960 Age: 61 yrs BP: 159/96 mmHg: :Reason For Study: HYPERTENSION : :Ordering Physician: BEATA, : :INGRIS Performed By: Bonnie Crawley : :Referring: INGRIS COTA : + + Interpretation Summary The left ventricle is normal in size. The ejection fraction is estimated to be 55-60%. Compared to the prior exam, the left ventricular function is improved. There is mid to distal hypokinesis of anterolateral wall which is old. Posterior lateral hypokinesis has improved. The right ventricular systolic function is normal. There is mild mitral regurgitation. Compared to the prior echo study, there has been no change in the severity of mitral regurgitation. Mild atherosclerotic plaque(s) in the aortic arch. The IVC is of normal diameter and collapses greater than 50% with a sniff. This suggests a low right atrial pressure of 3 mm Hg. Procedure: A two-dimensional transthoracic echocardiogram with color flow and Doppler was performed. The study quality was technically adequate. Comparison is made with the echocardiogram of 08/12/2017. The patient was in sinus bradycardia with heart rates between 52-57 bpm during the exam. Left Ventricle: The left ventricle is normal in size. Proximal septal thickening is noted. There is no echo evidence for significant left ventricular outflow tract obstruction. There is no thrombus. The ejection fraction is estimated to be 55-60%. Compared to the prior exam, the left ventricular function is improved. There is mid to distal hypokinesis of anterolateral wall which is old. Posterior lateral hypokinesis has improved. Diastolic parameters suggest a relaxation abnormality of the left ventricle, consistent with probable normal filling pressures. Right Ventricle: The right ventricle is grossly normal size. The right ventricular systolic function is normal. Atria: The left atrial size is normal. The left atrium has remained unchanged in size since the prior echo exam. Right atrial size is normal. There is no Doppler evidence for an interatrial shunt. Mitral Valve: There is mild mitral annular calcification. The mitral valve leaflets appear mildly thickened, but open well. There is mild mitral regurgitation. Compared to the prior echo study, there has been no change in the severity of mitral regurgitation. Aortic Valve: The aortic valve is trileaflet. The aortic valve opens well. There is no aortic valve stenosis. No aortic regurgitation is present. Tricuspid Valve: The tricuspid valve is normal in structure and function. There is trace tricuspid regurgitation. The right ventricular systolic pressure is estimated to be at least 21 mmHg based on an estimated right atrial pressure of 3 mm Hg. Pulmonic Valve: The pulmonic valve leaflets are thin and pliable; valve motion is normal. There is mild pulmonic regurgitation. Great Vessels: The aortic root is normal size. The ascending aorta is at the upper limits of normal in size. Mild atherosclerotic plaque(s) in the aortic arch. The IVC is of normal diameter and collapses greater than 50% with a sniff. This suggests a low right atrial pressure of 3 mm Hg. Pericardium/ Pleura There is no pericardial effusion. There is no pleural effusion. MMode/2D Measurements & Calculations LVIDd: 5.5 cm LVOT diam: 2.2 cm LVIDs: 3.7 cm Ao root diam: 3.4 cm FS: 31.9 % asc Aorta Diam: 3.8 cm IVSd: 0.98 cm Ao Arch Diam (Prox Trans): 3.4 cm LVPWd: 1.2 cm LV maravilla. diameter/BSA (cm/m^2): 2.4 LV sys. diameter/BSA (cm/m^2): 1.6 LA A2 area: 20.3 cm2 RA long axis: 5.3 cm LA A4 area: 21.4 cm2 RA area: 18.4 cm2 LA length (vol): 5.4 cm RA vol: 54.3 ml LA vol: 68.9 ml RA : 23.9 ml/m2 LA vol index: 30.3 ml/m2 IVC diam: 0.99 cm RVD1 (basal): 3.6 cm TAPSE: 2.1 cm Doppler Measurements & Calculations Ao V2 max: 136.8 cm/sec LVOT Max Torito: 98.3 cm/sec Ao V2 mean: 96.8 cm/sec LV V1 max P.9 mmHg Ao max P.5 mmHg LV V1 VTI: 23.2 cm Ao mean P.1 mmHg AYO(I,D): 3.1 cm2 Ao V2 VTI: 28.4 cm AYO(V,D): 2.7 cm2 sev ratio: 0.82 AYO indexed to BSA (cm^2/m^2): 1.4 MV E max torito: 64.6 cm/sec TR max torito: 211.8 cm/sec MV A max torito: 81.2 cm/sec TR max P.9 mmHg MV E/A: 0.80 PA V2 max: 110.6 cm/sec Med Peak E' Torito: 6.2 cm/sec PA V2 mean: 76.8 cm/sec E/E' med: 10.3 PA mean P.6 mmHg Lat Peak E' Torito: 8.2 cm/sec PA pr(Accel): 25.9 mmHg E/E' lat: 7.8 E/e' average: 9.1 MV dec time: 0.21 sec SV(LVOT): 88.4 ml Reading Physician:10:04 AM
== END ==
PROVIDERS: PCP Internal Medicine; Referring Provider Internal Medicine Cardiovascular Disease; Visit Provider Internal Medicine Cardiovascular Disease
DX: I34.0 Nonrheumatic mitral (valve) insufficiency (principal); I37.1 Nonrheumatic pulmonary valve insufficiency; I70.0 Atherosclerosis of aorta; I10 Essential (primary) hypertension
CPT/HCPCS: 93306

== ENCOUNTER → 2021-08-11 11:27 | Outpatient (CLI) | payer OTHER, SELFPAY | PROVIDERS: PCP Internal Medicine; Referring Provider Thoracic Surgery (Cardiothoracic Vascular Surgery); Visit Provider Thoracic Surgery (Cardiothoracic Vascular Surgery) | DX: I25.10 Atherosclerotic heart disease of native coronary artery without angina pectoris (principal); I25.118 Atherosclerotic heart disease of native coronary artery with other forms of angina pectoris; I50.32 Chronic diastolic (congestive) heart failure | CPT/HCPCS: 93005; 93010 ==

== ENCOUNTER 2021-09-11 16:49 | Emergency (ER) | payer OTHER, SELFPAY ==
[2021-09-11] VITALS (10 sets, daily range): BP systolic 148–181; BP diastolic 79–94; PULSE 65–95; RESP 13–23; TEMP 36; O2SAT 96–98; BMI 31.1
--- NOTE | 2021-09-11 17:10 | DI.RAD.S_ITS ---
PROCEDURE: XR CHEST 2V INDICATIONS: Chest pain TECHNIQUE: 2 views of the chest were acquired. COMPARISON: None. FINDINGS: Surgical changes and devices: Left atrial appendage occluder. Median sternotomy changes. Lungs and pleura: Lungs are clear. No pleural effusions or pneumothorax. Mediastinum: Mediastinal contours are normal. Heart size is normal. Bones and chest wall: No suspicious bony abnormalities. Soft tissues appear unremarkable. IMPRESSION: No acute cardiopulmonary process demonstrated radiographically. Dictated by: Frankie Combs M.D. on 09/11/2021 at 17:57 Approved by: Frankie Combs M.D. on 09/11/2021 at 17:58
[2021-09-11 17:57] LABS: Alanine Aminotransferase 20 IU/L (<50); Albumin 4.3 g/dL (3.5-5.0); Albumin Globulin Ratio 1.3 (1.0-2.8); Alkaline Phosphatase 72 U/L (38-126); Aspartate Aminotransferase 25 IU/L (17-59); BUN Creatinine Ratio 18.2 (6-22); Bilirubin Total 0.4 mg/dL (0.2-1.3); Blood Urea Nitrogen 25 mg/dL (9-20); Calcium 9.5 mg/dL (8.4-10.2); Carbon Dioxide 31 mmol/L (22-32); Chloride 99 mmol/L (98-107); Creatine Kinase 69 U/L (55-170); Estimated Glomerular Filt Rate 52.7 mL/min (>60); Globulin 3.2 g/dL (1.7-4.1); Glucose 173 mg/dL (80-110); HEMOLYSIS < 15 (0-50); Lipase 516 U/L (23-300); Magnesium 1.5 mg/dL (1.6-2.3); Sodium 136 mmol/L (137-145); Total Protein 7.5 g/dL (6.3-8.2)
[2021-09-11 17:59] LABS: Add Manual Diff / Slide Review NO; Basophils Absolute Auto 100 /uL (0-100); Basophils Percent Auto 1.2 % (0-2); Eosinophils Absolute Auto 300 /uL (0-450); Eosinophils Percent Auto 4.1 % (2-4); Hematocrit 37.8 % (41-53); Hemoglobin 12.7 g/dL (13.5-17.5); Lymphocytes Absolute Auto 2000 /uL (1100-4500); Lymphocytes Percent Auto 29.9 % (25-40); Mean Corpuscular HGB Conc 33.6 % (30-36); Mean Corpuscular Hemoglobin 30.1 PG (26-34); Mean Corpuscular Volume 89.6 fL (80-100); Monocytes Absolute Auto 500 /uL (0-900); Monocytes Percent Auto 7.9 % (3-14); Neutrophils Absolute Auto 3900 /uL (1500-7000); Neutrophils Percent Auto 56.9 % (50-75); Platelet Count 245 X10^3/uL (150-400); Red Blood Cell Count 4.22 X10^6/uL (4.5-5.9); Red Cell Distribution Width 13.3 % (11.6-14.8); White Blood Cell Count 6.8 X10^3/uL (4.5-11.0)
[2021-09-11 18:06] LABS: Troponin I 0.106 ng/mL (0.01-0.034)
[2021-09-11 19:18] LABS: NT-proBNP (BNP-Adult 18+) 660 pg/mL (<125)
--- NOTE | 2021-09-11 19:26 | ED.DIZZY ---
HPI - Dizziness General Chief Complaint: Dizziness Stated Complaint: DIZZY Time Seen by Provider: 09/11/21 18:21 Source: patient Mode of arrival: Ambulatory Limitations: no limitations History of Present Illness HPI Narrative: This is a 61-year-old male with prior CVA with a partial hemianopsia bilaterally and a CABG 3 weeks prior. Patient states and that he has been dizzy for about the past week. He wakes up in the morning he feels well about 10:00 a.m. he starts having symptoms he describes it as dizziness he had 1 episode where he felt near syncopal but did not pass out. But typically it is more of a vertigo type sensation. He has had a loss of vision from prior stroke with vision change being his only persistent deficit but states he would typically get dizzy describes a vertigo where his eyes and body do not quite catch up to where he actually physically is. States this recent episode is similar in some ways in different others. He has been able to take walks daily up to a mi without issue. He has has possibly a mild headache today but he stopped taking Tylenol today as well. He has not had any new vision changes. Has some numbness over his de la garza on the left leg where he had vein harvesting but no other new numbness, tingling or weakness. He states he did have these symptoms in the hospital. No chest pain, no shortness of breath, no nausea or vomiting, no issues with bowel movements or urination. Related Data Home Medications Medication Instructions Recorded Confirmed aspirin 81 mg tablet,delayed 81 mg PO DAILY #0 06/23/08 07/31/19 release amlodipine 10 mg tablet 10 mg PO DAILY #0 07/06/16 07/31/19 glipizide 2.5 mg tablet, extended 2.5 mg PO DAILY #0 08/16/16 07/31/19 release 24 hr (Glucotrol XL) allopurinol 100 mg tablet 100 mg PO DAILY 07/16/18 07/31/19 cholecalciferol (vitamin D3) 50 2,000 unit PO DAILY 07/16/18 07/31/19 mcg (2,000 unit) capsule clopidogrel 75 mg tablet 75 mg PO DAILY 07/16/18 07/31/19 coQ10 (ubiquinol) 1 cap PO DAILY 07/16/18 07/31/19 isosorbide mononitrate 60 mg 60 mg PO DAILY 07/16/18 07/31/19 tablet,extended release 24 hr levothyroxine 125 mcg capsule 125 mcg PO DAILY 07/16/18 07/31/19 metoprolol succinate 25 mg capsule 25 mg PO DAILY 07/16/18 07/31/19 sprinkle, ext. release 24 hr omega-3 acid ethyl esters 1 gram 1 cap PO DAILY 07/16/18 07/31/19 capsule rosuvastatin 10 mg tablet 20 mg PO DAILY 07/16/18 07/31/19 hydrochlorothiazide 25 mg tablet 25 mg PO BID 05/04/19 07/31/19 levothyroxine 112 mcg tablet 224 mcg PO DAILY 05/04/19 07/31/19 losartan 50 mg tablet 75 mg PO DAILY 05/04/19 07/31/19 patiromer calcium sorbitex 8.4 8.4 g PO DAILY 05/04/19 07/31/19 gram oral powder packet (Veltassa) Allergies Allergy/AdvReac Type Severity Reaction Status Date / Time HAKAN Inhibitors AdvReac Intermediate Verified 09/11/21 17:09 [HAKAN INHIBITORS] simvastatin [SIMVASTATIN] AdvReac Intermediate muscle Verified 09/11/21 17:09 aches, upset stomach Review of Systems Review of Systems ROS Unobtainable: All systems reviewed & are unremarkable except as noted in HPI and below Patient History Medical History (Updated 09/11/21 @ 20:02 by Michelle Stuart DO) CVA (cerebral vascular accident) Hypertension Social History Smoking Status: Never smoker Smoking Status: Never smoker Exam Narrative Exam Narrative: GEN: well nourished, well appearing male, alert and oriented x 3, patient appears to be in mild distress. HEENT: Atraumatic, pupils are equal round reactive to light, extraocular movements are intact, nares are clear, TMs are clear with no fluid, there is no conjunctival pallor. Throat is clear without any exudates, erythema, tonsillar enlargement or uvular deviation, no facial droop. HEART: Regular rate and rhythm without murmur, clicks, rubs. Patient has a healing midline incision sternal which is clean dry and intact with small amount of scab. LUNGS:Lungs clear to auscultation, no wheezes, rales, crackles, chest moves symmetrically ABD:bowel sounds normal, soft, non-tender, no guarding, rebound, rigidity, no masses noted, no hepatosplenomegaly :No CVA tenderness MSCL: Non-tender, no muscle atrophy, muscles strength 5/5 upper and lower extremities, full range of motion, normal gait NEURO:CN 2-12 intact, sensation normal except for slight decreased over the left anterior de la garza. finger nose finger test normal, heel de la garza test normal, no dysarthria. Initial Vital Signs Initial Vital Signs: Vital Signs Temperature 96.8 F L 09/11/21 17:02 Pulse Rate 93 H 09/11/21 17:02 Respiratory Rate 18 09/11/21 17:02 Blood Pressure 161/94 H 09/11/21 17:02 Pulse Oximetry 98 09/11/21 17:02 Scores NIH Stroke Scale Level of Conciousness: Alert, keenly responsive Ask month/age: Answers both questions correctly. Open/close eyes, close hand: Performs both tasks correctly Best gaze horizontal: Normal Visual wiseman: Partial hemianopia (chronic) Facial palsy: Normal symetrical movement Left arm drift: No drift for full 10 sec Right arm drift: No drift for full 10 sec Left leg drift: No drift for full 5 sec Right leg drift: No drift for full 5 sec Limb ataxia: Absent Sensory on face/arms/legs: Mild to moderate sensory loss, can tell touch Best language: No aphasia, normal Dysarthria: Normal Extinction or inattention: No abnormality Total NIH Stroke scale score: 2 Course Orders Ordered: Discontinued Medications Sodium Chloride (Normal Saline 0.9%) 1,000 mls @ 150 mls/hr IV CONT KYLER Last Infusion: 09/11/21 22:24 Dose: 0 mls/hr Documented by: Admin: 09/11/21 20:20 Dose: 150 mls/hr Documented by: DANIEL Reevaluation(s) Reevaluation #1: Discussed findings patient. Recommendations from tele stroke. Offered observation and MRI but patient politely defers. He has appointment with his cardiology team and plans to follow up via them and PCP. Consultations Consultation #1: Dr. Canchola, tele stroke recommends MRI. Patient is not a candidate for intervention because these are very small vessels. We discussed patient is on aspirin Plavix and maximized on those as well as rosuvastatin. Vital Signs Vital signs: Vital Signs - 8 hr 09/11/21 17:02 09/11/21 18:47 09/11/21 19:00 Temperature 96.8 F L Pulse Rate 93 H 83 75 Respiratory Rate 18 13 Blood Pressure 161/94 H 181/86 H 154/83 H Pulse Oximetry 98 96 97 09/11/21 19:30 09/11/21 20:00 Temperature Pulse Rate 71 72 Respiratory Rate 16 21 Blood Pressure 148/84 H 175/93 H Pulse Oximetry 96 96 MDM - Dizziness Lab Data Result diagrams: 09/11/21 17:23 09/11/21 17:23 Labs: Lab Results 09/11/21 09/11/21 09/11/21 Range/Units 17:23 17:23 17:23 WBC 6.8 (4.5-11.0) X10^3/uL RBC 4.22 L (4.5-5.9) X10^6/uL Hgb 12.7 L (13.5-17.5) g/dL Hct 37.8 L (41-53) % MCV 89.6 (80-100) fL MCH 30.1 (26-34) PG MCHC 33.6 (30-36) % RDW 13.3 (11.6-14.8) % Plt Count 245 (150-400) X10^3/uL Neut % (Auto) 56.9 (50-75) % Lymph % (Auto) 29.9 (25-40) % [place] % (Auto) 7.9 (3-14) % Eos % (Auto) 4.1 H (2-4) % Baso % (Auto) 1.2 (0-2) % Neut # (Auto) 3900 (6229-9873) /uL Lymph # (Auto) 2000 (8537-2477) /uL [place] # (Auto) 500 (0-900) /uL Eos # (Auto) 300 (0-450) /uL Baso # (Auto) 100 (0-100) /uL PT (10.1-12.7) SECONDS INR (0.9-1.3) APTT (26.4-36.2) SECONDS Sodium 136 L (137-145) mmol/L Potassium 4.0 (3.4-5.1) mmol/L Chloride 99 (98-107) mmol/L Carbon Dioxide 31 (22-32) mmol/L BUN 25 H (9-20) mg/dL Creatinine 1.37 H (0.66-1.25) mg/dL Estimated GFR 52.7 L (>60) mL/min BUN/Creatinine Ratio 18.2 (6-22) Glucose 173 H (80-110) mg/dL Calcium 9.5 (8.4-10.2) mg/dL Magnesium 1.5 L (1.6-2.3) mg/dL Total Bilirubin 0.4 (0.2-1.3) mg/dL AST 25 (17-59) IU/L ALT 20 (<50) IU/L Alkaline Phosphatase 72 (38-126) U/L Total Creatine Kinase 69 (55-170) U/L CK-MB (CK-2) TNP CK-MB (CK-2) Rel Index TNP Troponin I 0.106 H (0.01-0.034) ng/mL NT-Pro-B Natriuret Pep 660 H (<125) pg/mL Total Protein 7.5 (6.3-8.2) g/dL Albumin 4.3 (3.5-5.0) g/dL Globulin 3.2 (1.7-4.1) g/dL Albumin/Globulin Ratio 1.3 (1.0-2.8) Lipase 516 H (23-300) U/L SARS-CoV-2 (PCR) (Negative) 09/11/21 09/11/21 09/11/21 Range/Units 17:23 18:50 19:32 WBC (4.5-11.0) X10^3/uL RBC (4.5-5.9) X10^6/uL Hgb (13.5-17.5) g/dL Hct (41-53) % MCV (80-100) fL MCH (26-34) PG MCHC (30-36) % RDW (11.6-14.8) % Plt Count (150-400) X10^3/uL Neut % (Auto) (50-75) % Lymph % (Auto) (25-40) % [place] % (Auto) (3-14) % Eos % (Auto) (2-4) % Baso % (Auto) (0-2) % Neut # (Auto) (3986-9526) /uL Lymph # (Auto) (3045-5041) /uL [place] # (Auto) (0-900) /uL Eos # (Auto) (0-450) /uL Baso # (Auto) (0-100) /uL PT 11.4 (10.1-12.7) SECONDS INR 1.0 (0.9-1.3) APTT 27 (26.4-36.2) SECONDS Sodium (137-145) mmol/L Potassium (3.4-5.1) mmol/L Chloride (98-107) mmol/L Carbon Dioxide (22-32) mmol/L BUN (9-20) mg/dL Creatinine (0.66-1.25) mg/dL Estimated GFR (>60) mL/min BUN/Creatinine Ratio (6-22) Glucose (80-110) mg/dL Calcium (8.4-10.2) mg/dL Magnesium (1.6-2.3) mg/dL Total Bilirubin (0.2-1.3) mg/dL AST (17-59) IU/L ALT (<50) IU/L Alkaline Phosphatase (38-126) U/L Total Creatine Kinase 63 (55-170) U/L CK-MB (CK-2) TNP CK-MB (CK-2) Rel Index TNP Troponin I 0.101 H (0.01-0.034) ng/mL NT-Pro-B Natriuret Pep (<125) pg/mL Total Protein (6.3-8.2) g/dL Albumin (3.5-5.0) g/dL Globulin (1.7-4.1) g/dL Albumin/Globulin Ratio (1.0-2.8) Lipase (23-300) U/L SARS-CoV-2 (PCR) Negative (Negative) Imaging Data Chest x-ray: Radiologist's Impression: [address] [address] XRay Report Signed Patient: Poncho Navarro MR#: [id number] : 1960 Acct:[id number] Age/Sex: 61 / M Date of Service: 09/11/21 Loc: ED Accession Number: [id number] ?? Procedure: XR chest 2V Ordering Provider: Malissa Salmeron D.O. PROCEDURE:? XR CHEST 2V ? INDICATIONS:? Chest pain ? TECHNIQUE:? 2 views of the chest were acquired.? ? COMPARISON:? None. ? FINDINGS:? ? Surgical changes and devices:? Left atrial appendage occluder.? Median sternotomy changes. ? Lungs and pleura:? Lungs are clear.? No pleural effusions or pneumothorax.? ? Mediastinum:? Mediastinal contours are normal.? Heart size is normal.? ? Bones and chest wall:? No suspicious bony abnormalities.? Soft tissues appear unremarkable.? ? IMPRESSION:? No acute cardiopulmonary process demonstrated radiographically. ? ? Dictated by: Frankie Combs M.D. on 09/11/2021 at 17:57 ? ? Approved by: Frankie Combs M.D. on 09/11/2021 at 17:58?? CT scan - head: Radiologist's Impression: [address] [address] [address] Scan Report Signed Patient: Poncho Navarro MR#: [id number] : 1960 Acct:[id number] Age/Sex: 61 / M Date of Service: 09/11/21 Loc: ED Accession Number: [id number] ?? Procedure: CT head/brain wo con Ordering Provider: Michelle Stuart D.O. PROCEDURE:? CT HEAD/BRAIN WO CON ? INDICATIONS:? dizziness, vertigo, prior CABG 3 weeks ago. ? TECHNIQUE:? Noncontrast 4.5 mm thick angled axial sections acquired from the foramen magnum to the vertex, with coronal and sagittal reformats.? For radiation dose reduction, the following was used:? automated exposure control, adjustment of mA and/or kV according to patient size.? ? COMPARISON:? [facility], CT, HEAD WITHOUT CONTRAST, 03/05/2014, 17:28.? [facility], CT, CT HEAD/BRAIN WO CON, 05/04/2019, 18:37. ? FINDINGS:? Image quality:? Excellent.? ? CSF spaces:? Basal cisterns are patent.? No extra-axial fluid collections.? Ventricles are normal in size and shape.? ? Brain:? There is old infarct in the right posterior medial temporal lobe and occipital lobe encephalomalacia.? Old lacunar infarct in the left basal ganglia.? No midline shift. ?No intracranial masses or hemorrhage.? ? Skull and face:? Calvarium and visualized facial bones are intact, without suspicious lesions.? ? Sinuses:? Visualized sinuses and mastoids are clear.? ? IMPRESSION:? ? 1. No acute intracranial abnormalities. 2. Old right posterior medial temporal and occipital infarct. 3. Old lacunar infarct in the left basal ganglia. ? ? ? Dictated by: Yael Montana M.D. on 09/11/2021 at 20:33 ? ? Approved by: Yael Montana M.D. on 09/11/2021 at 20:37?? CTA - brain/neck: Radiologist's Impression: [place] [address] CT Scan Report Signed Patient: Poncho Navarro MR#: [id number] : 1960 Acct:[id number] Age/Sex: 61 / M Date of Service: 09/11/21 Loc: ED Accession Number: [id number] ?? Procedure: CT angio head and neck Ordering Provider: Michelle Stuart D.O. PROCEDURE:? CT ANGIO HEAD AND NECK ? INDICATIONS:? dizziness, vertigo, prior CABG 3 weeks ago ? TECHNIQUE:? After the administration of intravenous contrast, 1 mm thick sections acquired from the aortic arch through the [place] of [place].? Post-contrast 4.5 mm thick sections then re-acquired from the foramen magnum to the vertex.? 3-dimensional frcppcs-pdwzazlrm-ewigqblmzf (MIP) and/or volume rendering reformats were acquired of the central intracranial vasculature and neck separately. ? COMPARISON:? [facility], CT, CT HEAD/BRAIN WO CON, 05/04/2019, 18:37.? [facility], CT, CT HEAD/BRAIN WO CON, 09/11/2021, 20:01. ? FINDINGS:? Image quality:? Suboptimal due to motion artifacts in the neck.? ? BRAIN:? CSF spaces:? Ventricles are normal in size and shape.? Basal cisterns are patent.? No extra-axial fluid collections.? ? Brain:? Old right posterior temporal lobe and occipital lobe infarct.? Old lacunar infarct in the left basal ganglia.? No midline shift.? No intracranial bleeds or masses.? Fish-white matter interface appears intact.? ? Skull and face:? Calvarium and facial bones appear intact, without suspicious lesions.? Orbits appear normal.? ? Sinuses:? Sinuses and mastoids are clear.? ? HEAD CT ANGIOGRAPHY:? Anterior circulation:? Intracranial internal carotid arteries are normal in size and flow.? The flow within the paired anterior cerebral arteries is normal and symmetric.? The flow within the middle cerebral arteries is normal and symmetric.? The anterior communicating artery is seen.? No aneurysms are seen.? ? Posterior circulation:? Occlusion of the right vertebral artery.? Left vertebral artery is normal in caliber.? The basilar artery is patent and normal in caliber.? There is high-grade stenosis and fenestrated appearance of the proximal right posterior cerebral artery.? The left posterior cerebral artery is normal.? No aneurysms are seen.? ? NECK CT ANGIOGRAPHY:? Carotid system:? The great vessels demonstrate a conventional anatomy as they arise from the aortic arch.? The origins of the common carotid arteries appear patent.? The common carotid arteries demonstrate normal caliber and courses.? The bifurcation regions are suboptimally visualized due to motion artifacts.? The internal carotid arteries demonstrate normal calibers and courses.? ? Posterior circulation:? Dominant left vertebral artery.? The origins of the vertebral arteries both appear widely patent.? There is occlusion of the distal right vertebral artery at the skull base The more superior left vertebral artery demonstrate normal course and caliber.? They join to form a normal appearing basilar artery.? ? Soft tissues:? Visualized neck soft tissues demonstrate no suspicious abnormalities.? ? Bones:? No suspicious bony lesions.? Visualized cervical spine appears normally aligned.? IMPRESSION:? ? 1. No acute intracranial abnormalities. 2. Old infarct involving the right posterior temporal lobe and occipital lobe. 3. Old lacunar infarct in the left basal ganglia. 4. No occlusion or significant stenosis in anterior circulations. 5. Suboptimal visualization of carotid bifurcations due to motion artifacts. 6. 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 7. 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 ? ? ? Any quantitative measurements of stenosis were performed using NASCET criteria.? ? ? Dictated by: Yael Montana M.D. on 09/11/2021 at 21:06 ? ? Approved by: Yael Montana M.D. on 09/11/2021 at 21:20 ECG Data Attestation: I personally reviewed and interpreted this ECG as follows: Prior ECG tracings: available for review Interpretation: Sinus rhythm, rate of 91 MA 126, QRS and QTc 437. Patient has prior from 05/04/2019 with T-wave inversion in 1, aVL, in lateral leads V2, V4 V5 and Q wave in lead. Do not have prior from recent CABG. MDM Narrative Medical decision making narrative: This is a 61-year-old male comes in with complaint of dizziness and vertigo type symptoms. They have been persistent for several days but intermittent worse throughout the day and better in the morning. Patient is on several medications which might cause some hypotension or dizziness but vital signs at home on their check have been appropriate. Patient did have his amiodarone stop. He is 3 weeks post CABG. We discussed he has had prior stroke so head CT CT angio was obtained does show some high-grade stenosis and thrombosis. Discussed with telestroke they recommend medical management and MRI. Patient does not wish to stay for observation for MRI he has appointment with his cardiology team today. We discussed recommendations that he is risk for stroke. All questions answered. Discharge Plan Departure Patient Disposition: Home Clinical Impression: Dizziness Instructions: DI for Vertigo Activity Restrictions/Additional Instructions: Follow-up with your physicians at your appointment tomorrow. Your CT angio today does show narrowing of the proximal right posterior cerebral artery as well as an occlusion of the distal right vertebral artery at the skull base. It is recommended by Neurology that you have an MRI to evaluate for possible infarct. They also recommend that you continue with aspirin, Plavix and statin they do not recommend or feel that you would be a candidate for intervention based on the location and size of these vessels. Please return for new or worsening symptoms, severe headaches, new numbness, tingling or weakness, sudden vision changes, new or worsening vertigo symptoms, persistent vomiting, new chest pain or shortness of breath or other new or concerning symptoms. Prescriptions: No Action levothyroxine 125 mcg capsule 125 mcg PO DAILY 0RF clopidogrel 75 mg tablet 75 mg PO DAILY 0RF isosorbide mononitrate 60 mg tablet extended release 24 hr 60 mg PO DAILY 0RF metoprolol succinate 25 mg cap,sprinkle,ER 24hr dose pack 25 mg PO DAILY 0RF rosuvastatin 10 mg tablet 20 mg PO DAILY 0RF allopurinol 100 mg tablet 100 mg PO DAILY 0RF coQ10 (ubiquinol) 1 cap PO DAILY 0RF omega-3 acid ethyl esters 1 gram capsule 1 cap PO DAILY 0RF cholecalciferol (vitamin D3) 2,000 unit capsule 2,000 unit PO DAILY 0RF aspirin 81 mg Tablet,Delayed Release (Dr/Ec) 81 mg PO DAILY Qty: 0 0RF amlodipine 10 MG tablet 10 mg PO DAILY Qty: 0 0RF glipizide [Glucotrol XL] 2.5 MG tablet extended release 24hr 2.5 mg PO DAILY Qty: 0 0RF losartan 50 mg tablet 75 mg PO DAILY 0RF hydrochlorothiazide 25 mg tablet 25 mg PO BID 0RF levothyroxine 112 mcg tablet 224 mcg PO DAILY 0RF Veltassa 8.4 gram powder in packet 8.4 g PO DAILY 0RF Referrals: Mike Correa MD [Primary Care Provider] -
[2021-09-11 19:36] LABS: COVID19 -Nasal RAPID Negative (Negative)
[2021-09-11 19:39] LABS: Prothrombin Time 11.4 SECONDS (10.1-12.7)
[2021-09-11 19:42] LABS: PTT Partial Thromboplastin Tim 27 SECONDS (26.4-36.2)
--- NOTE | 2021-09-11 19:56 | DI.CT.S_ITS ---
PROCEDURE: CT ANGIO HEAD AND NECK INDICATIONS: dizziness, vertigo, prior CABG 3 weeks ago TECHNIQUE: After the administration of intravenous contrast, 1 mm thick sections acquired from the aortic arch through the [place] of [place]. Post-contrast 4.5 mm thick sections then re-acquired from the foramen magnum to the vertex. 3-dimensional bbctygg-ndmgrdikx-nfwergqmsv (MIP) and/or volume rendering reformats were acquired of the central intracranial vasculature and neck separately. COMPARISON: [facility], CT, CT HEAD/BRAIN WO CON, 05/04/2019, 18:37. [facility], CT, CT HEAD/BRAIN WO CON, 09/11/2021, 20:01. FINDINGS: Image quality: Suboptimal due to motion artifacts in the neck. BRAIN: CSF spaces: Ventricles are normal in size and shape. Basal cisterns are patent. No extra-axial fluid collections. Brain: Old right posterior temporal lobe and occipital lobe infarct. Old lacunar infarct in the left basal ganglia. No midline shift. No intracranial bleeds or masses. Fish-white matter interface appears intact. Skull and face: Calvarium and facial bones appear intact, without suspicious lesions. Orbits appear normal. Sinuses: Sinuses and mastoids are clear. HEAD CT ANGIOGRAPHY: Anterior circulation: Intracranial internal carotid arteries are normal in size and flow. The flow within the paired anterior cerebral arteries is normal and symmetric. The flow within the middle cerebral arteries is normal and symmetric. The anterior communicating artery is seen. No aneurysms are seen. Posterior circulation: Occlusion of the right vertebral artery. Left vertebral artery is normal in caliber. The basilar artery is patent and normal in caliber. There is high-grade stenosis and fenestrated appearance of the proximal right posterior cerebral artery. The left posterior cerebral artery is normal. No aneurysms are seen. NECK CT ANGIOGRAPHY: Carotid system: The great vessels demonstrate a conventional anatomy as they arise from the aortic arch. The origins of the common carotid arteries appear patent. The common carotid arteries demonstrate normal caliber and courses. The bifurcation regions are suboptimally visualized due to motion artifacts. The internal carotid arteries demonstrate normal calibers and courses. Posterior circulation: Dominant left vertebral artery. The origins of the vertebral arteries both appear widely patent. There is occlusion of the distal right vertebral artery at the skull base The more superior left vertebral artery demonstrate normal course and caliber. They join to form a normal appearing basilar artery. Soft tissues: Visualized neck soft tissues demonstrate no suspicious abnormalities. Bones: No suspicious bony lesions. Visualized cervical spine appears normally aligned. IMPRESSION: 1. No acute intracranial abnormalities. 2. Old infarct involving the right posterior temporal lobe and occipital lobe. 3. Old lacunar infarct in the left basal ganglia. 4. No occlusion or significant stenosis in anterior circulations. 5. Suboptimal visualization of carotid bifurcations due to motion artifacts. 6. 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 7. 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 Any quantitative measurements of stenosis were performed using NASCET criteria. Dictated by: aYel Montana M.D. on 09/11/2021 at 21:06 Approved by: Yael Montana M.D. on 09/11/2021 at 21:20
--- NOTE | 2021-09-11 19:56 | DI.CT.S_ITS ---
PROCEDURE: CT HEAD/BRAIN WO CON INDICATIONS: dizziness, vertigo, prior CABG 3 weeks ago. TECHNIQUE: Noncontrast 4.5 mm thick angled axial sections acquired from the foramen magnum to the vertex, with coronal and sagittal reformats. For radiation dose reduction, the following was used: automated exposure control, adjustment of mA and/or kV according to patient size. COMPARISON: [facility], CT, HEAD WITHOUT CONTRAST, 03/05/2014, 17:28. [facility], CT, CT HEAD/BRAIN WO CON, 05/04/2019, 18:37. FINDINGS: Image quality: Excellent. CSF spaces: Basal cisterns are patent. No extra-axial fluid collections. Ventricles are normal in size and shape. Brain: There is old infarct in the right posterior medial temporal lobe and occipital lobe encephalomalacia. Old lacunar infarct in the left basal ganglia. No midline shift. No intracranial masses or hemorrhage. Skull and face: Calvarium and visualized facial bones are intact, without suspicious lesions. Sinuses: Visualized sinuses and mastoids are clear. IMPRESSION: 1. No acute intracranial abnormalities. 2. Old right posterior medial temporal and occipital infarct. 3. Old lacunar infarct in the left basal ganglia. Dictated by: Yael Montana M.D. on 09/11/2021 at 20:33 Approved by: Yael Montana M.D. on 09/11/2021 at 20:37
[2021-09-11 20:01] LABS: Creatine Kinase 63 U/L (55-170)
[2021-09-11 20:14] LABS: Troponin I 0.101 ng/mL (0.01-0.034)
[2021-09-11] MEDS: SODIUM CHLORIDE 0.9% 1,000 ML 150 ML IV (20:20)
== END 2021-09-11 22:26 | disposition home or self-care (01) ==
PROVIDERS: Emergency Medicine; Emergency Provider Emergency Medicine; PCP Internal Medicine
DX: R42 Dizziness and giddiness (principal); Z86.73 Personal history of transient ischemic attack (TIA), and cerebral infarction without residual deficits; Z95.1 Presence of aortocoronary bypass graft; Z20.822 Contact with and (suspected) exposure to COVID-19
CPT/HCPCS: 36415; 70450; 70496; 70498; 71046; 80053; 82550; 83690; 83735; 83880; 84484; 85025; 85610; 85730; 87635; 93005; 93010; 96360; 96361; 99284; C9803; Q9967

== ENCOUNTER 2021-10-26 09:07 | Emergency (ER) | payer OTHER, SELFPAY ==
[2021-10-26] VITALS (35 sets, daily range): BP systolic 128–215; BP diastolic 60–100; PULSE 72–109; RESP 12–38; TEMP 36.7; O2SAT 85–99; BMI 31.7
--- NOTE | 2021-10-26 09:28 | DI.RAD.S_ITS ---
PROCEDURE: XR CHEST 1V INDICATIONS: chest pain TECHNIQUE: One view of the chest was acquired. COMPARISON: [facility], CR, XR CHEST 1V, 05/04/2019, 18:31. [facility], CR, XR CHEST 2V, 09/11/2021, 17:35. FINDINGS: Surgical changes and devices: Patient is status post median sternotomy. The superior wire is fractured. This appears new when compared with the study dated September 11, 2021. Lungs and pleura: Lungs are clear. No pleural effusions or pneumothorax. Mediastinum: Mediastinal contours appear normal. Heart size is normal. Bones and chest wall: No suspicious bony lesions. Overlying soft tissues appear unremarkable. IMPRESSION: No acute cardiopulmonary findings. Fractured superior sternotomy wire which may be new when compared with the study dated September 11, 2021. Dictated by: Alice Brown M.D. on 10/26/2021 at 10:03 Approved by: Alice Brown M.D. on 10/26/2021 at 10:04
[2021-10-26 09:36] LABS: Add Manual Diff / Slide Review NO; Basophils Absolute Auto 0 /uL (0-100); Basophils Percent Auto 0.6 % (0-2); Eosinophils Absolute Auto 0 /uL (0-450); Eosinophils Percent Auto 0.2 % (2-4); Hematocrit 40.9 % (41-53); Lymphocytes Absolute Auto 800 /uL (1100-4500); Lymphocytes Percent Auto 17.2 % (25-40); Mean Corpuscular HGB Conc 34.2 % (30-36); Mean Corpuscular Hemoglobin 29.9 PG (26-34); Mean Corpuscular Volume 87.5 fL (80-100); Monocytes Absolute Auto 400 /uL (0-900); Monocytes Percent Auto 7.8 % (3-14); Neutrophils Absolute Auto 3600 /uL (1500-7000); Neutrophils Percent Auto 74.2 % (50-75); Platelet Count 208 X10^3/uL (150-400); Red Blood Cell Count 4.67 X10^6/uL (4.5-5.9); Red Cell Distribution Width 13.5 % (11.6-14.8); White Blood Cell Count 4.9 X10^3/uL (4.5-11.0)
[2021-10-26 09:45] LABS: Albumin 4.4 g/dL (3.5-5.0); Albumin Globulin Ratio 1.5 (1.0-2.8); Alkaline Phosphatase 92 U/L (38-126); BUN Creatinine Ratio 24.3 (6-22); Bilirubin Total 2.1 mg/dL (0.2-1.3); Blood Urea Nitrogen 28 mg/dL (9-20); Carbon Dioxide 31 mmol/L (22-32); Chloride 100 mmol/L (98-107); Creatine Kinase 53 U/L (55-170); Estimated Glomerular Filt Rate > 60.0 mL/min (>60); Glucose 256 mg/dL (80-110); HEMOLYSIS < 15 (0-50); Lipase 289 U/L (23-300); Magnesium 1.6 mg/dL (1.6-2.3); Potassium 4.3 mmol/L (3.4-5.1); Sodium 136 mmol/L (137-145); Total Protein 7.4 g/dL (6.3-8.2)
--- NOTE | 2021-10-26 09:48 | ED.ABDPAIN ---
HPI - Abdominal Pain <Sukh Bernardo MD - Last Filed: 11/02/21 22:20> General Chief Complaint: Chest Pain Stated Complaint: Rapid heart rate Time Seen by Provider: 10/26/21 09:38 Source: patient Mode of arrival: Ambulatory History of Present Illness HPI narrative: Patient complains of epigastric dull sharp pain nonradiating that started 10 hours ago at midnight. Has nausea. Forced himself to vomit but no relief. Had some diaphoresis. No dyspnea. No chest pain. Again no chest pain. Heart rate noted. He felt palpitations last night. Patient had triple bypass in July of this year at [facility]. He does see [facility] Cardiology dr johnson. Has been doing well since the bypass surgery. Patient does have history of stroke. Has history of diabetes as well. No abdominal surgical history. No urinary complaints. No fever chills. Related Data Home Medications Medication Instructions Recorded Confirmed aspirin 81 mg tablet,delayed 81 mg PO DAILY #0 06/23/08 10/26/21 release allopurinol 100 mg tablet 100 mg PO DAILY 07/16/18 10/26/21 clopidogrel 75 mg tablet 75 mg PO DAILY 07/16/18 10/26/21 rosuvastatin 10 mg tablet 40 mg PO DAILY 07/16/18 10/26/21 hydrochlorothiazide 25 mg tablet 25 mg PO DAILY 05/04/19 10/26/21 levothyroxine 112 mcg tablet 224 mcg PO DAILY 05/04/19 10/26/21 losartan 50 mg tablet 50 mg PO DAILY 05/04/19 10/26/21 insulin aspart U-100 100 unit/mL 6 sliding scale dose SUBCUT AC 10/26/21 10/26/21 (3 mL) subcutaneous pen insulin glargine 100 unit/mL (3 24 unit SUBCUT BID 10/26/21 10/26/21 mL) subcutaneous pen (Lantus Solostar U-100 Insulin) metformin 500 mg tablet 500 mg PO BID 10/26/21 10/26/21 metoprolol tartrate 25 mg tablet 25 mg PO BID 10/26/21 10/26/21 Allergies Allergy/AdvReac Type Severity Reaction Status Date / Time HAKAN Inhibitors AdvReac Intermediate Verified 09/11/21 17:09 [HAKAN INHIBITORS] simvastatin [SIMVASTATIN] AdvReac Intermediate muscle Verified 09/11/21 17:09 aches, upset stomach Review of Systems <Sukh Bernardo MD - Last Filed: 11/02/21 22:20> Review of Systems Narrative: GENERAL: Denies chills, fatigue, malaise, fever, sweats. HEENT: Denies sinus pain, ear pain, sore throat RESPIRATORY: Denies dyspnea, cough CARDIOVASCULAR: Denies chest pain, positive for palpitations GASTROINTESTINAL: Positive for nausea, vomiting, abdominal pain : Denies dysuria, frequency, hematuria MUSCULOSKELETAL: denies muscle or bony pain SKIN: Denies rash, skin lesions NEUROLOGIC: Denies weakness, numbness ROS Unobtainable: All systems reviewed & are unremarkable except as noted in HPI and below Patient History <Sukh Bernardo MD - Last Filed: 11/02/21 22:20> Medical History (Updated 10/27/21 @ 05:01 by Reva Patterson MD) CVA (cerebral vascular accident) Hypertension Social History Smoking Status: Never smoker Smoking Status: Never smoker Substance Use Type: does not use Exam <Sukh Bernardo MD - Last Filed: 11/02/21 22:20> Narrative Exam Narrative: GENERAL: in no distress, not toxic not dyspneic HEAD: Normocephalic. EYES: Pupils equal round No scleral icterus. ENT: Mucous membranes moist. NECK: Trachea midline. CARDIOVASCULAR: Regular rate and rhythm without murmurs, tachycardic RESPIRATORY: Clear to auscultation. Breath sounds equal bilaterally. No wheezes, rales, or rhonchi. GASTROINTESTINAL: Abdomen soft, reproducible epigastric tenderness, bowel sounds present. No peritoneal signs. No pain out of proportion to exam. EXTREMITIES: No gross deformities. BACK: No flank tenderness. NEURO: AOx4. SKIN: Warm and dry PSYCH: Not anxious, is cooperative Initial Vital Signs Initial Vital Signs: Vital Signs Temperature 98.0 F 10/26/21 09:28 Pulse Rate 109 H 10/26/21 09:28 Respiratory Rate 22 10/26/21 09:28 Blood Pressure 184/100 H 10/26/21 09:28 Pulse Oximetry 99 10/26/21 09:28 <Reva Patterson MD - Last Filed: 11/03/21 07:13> Initial Vital Signs Initial Vital Signs: Vital Signs Temperature 98.0 F 10/26/21 09:28 Pulse Rate 109 H 10/26/21 09:28 Respiratory Rate 22 10/26/21 09:28 Blood Pressure 184/100 H 10/26/21 09:28 Pulse Oximetry 99 10/26/21 09:28 <Timothy Haynes DO - Last Filed: 10/27/21 09:11> Initial Vital Signs Initial Vital Signs: Vital Signs Temperature 98.0 F 10/26/21 09:28 Pulse Rate 109 H 10/26/21 09:28 Respiratory Rate 22 10/26/21 09:28 Blood Pressure 184/100 H 10/26/21 09:28 Pulse Oximetry 99 10/26/21 09:28 Course <Sukh Bernardo MD - Last Filed: 11/02/21 22:20> Course Course Narrative: patient needs ERCP and facility that can accommodate. Spoke with Dr. Salazar, general surgeon. Patient is to be transferred for facility that has ERCP. 6:00 p.m.. Sign out to Dr. Cerna. Patient is on waiting list for multiple hospitals for admission. Needs ERCP. Patient had run of V-tach, stable, asymptomatic. Patient did receive home dose of amiodarone. 200 mg. Decision to Admit Date: 10/26/21 Decision to Admit time: 11:42 Orders Ordered: Discontinued Medications Amiodarone HCl (Amiodarone 200 Mg Tablet) 200 mg PO NOW ONE Stop: 10/26/21 17:02 Last Admin: 10/26/21 17:06 Dose: 200 mg Documented by: JACOBO Hydromorphone HCl (Hydromorphone 1 Mg Inj) 1 mg IV NOW ONE Stop: 10/26/21 15:05 Last Admin: 10/26/21 15:21 Dose: 1 mg Documented by: GEORGETONJeison Sodium Chloride (Normal Saline 0.9%) 1,000 mls @ 1,000 mls/hr IV BOLUS ONE Stop: 10/26/21 10:45 Last Infusion: 10/26/21 11:43 Dose: 0 mls/hr Documented by: Admin: 10/26/21 10:27 Dose: 1,000 mls/hr Documented by: RSTONE Sodium Chloride (Normal Saline 0.9%) 1,000 mls @ 75 mls/hr IV CONT KYLER Last Infusion: 10/27/21 09:34 Dose: 0 mls/hr Documented by: Admin: 10/26/21 18:15 Dose: 75 mls/hr Documented by: JACOBO Ceftriaxone Sodium 2,000 mg/ (Sodium Chloride) 100 mls @ 200 mls/hr IV NOW ONE Stop: 10/27/21 01:08 Last Infusion: 10/27/21 04:00 Dose: 0 mls/hr Documented by: Admin: 10/27/21 01:37 Dose: 200 mls/hr Documented by: RUBIN Metoprolol Succinate (Metoprolol Er 25 Mg Tablet) 25 mg PO NOW ONE Stop: 10/26/21 12:40 Last Admin: 10/26/21 12:59 Dose: 25 mg Documented by: GENARO Morphine Sulfate (Morphine 4 Mg/Ml Inj) 4 mg IV NOW ONE Stop: 10/26/21 11:51 Last Admin: 10/26/21 11:55 Dose: 4 mg Documented by: GENARO Nitroglycerin (Nitroglycerin Oint 1 Inch/Gm Oint...G.) 1 inch TOP NOW ONE Stop: 10/26/21 14:23 Last Admin: 10/26/21 15:01 Dose: 1 inch Documented by: GENARO Ondansetron HCl (Ondansetron 4 Mg/2 Ml Inj) 4 mg IV NOW ONE Stop: 10/26/21 09:54 Last Admin: 10/26/21 10:26 Dose: Not Given Documented by: GENARO Ondansetron HCl (Ondansetron 4 Mg/2 Ml Inj) 4 mg IV NOW ONE Stop: 10/26/21 15:25 Last Admin: 10/26/21 15:33 Dose: 4 mg Documented by: JACOBO Reevaluation(s) Reevaluation #1: Reviewed results with patient and understands needs for transfer and GI services/ERCP/MRCP Time: 11:43 Reevaluation #2: Patient had asymptomatic/stable run of V-tach. Patient states he did not feel any symptoms. He states he did take at 3:30 a.m. 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 It is 200 mg. He took another dose at 6:00 a.m. today. Time: 17:03 Consultations Consultation #1: Reviewed with [facility] cardiology on-call for us. Dr. Hoffman, troponin likely trending down from his bypass surgery. Patient is asymptomatic from cardiac standpoint. Time: 11:43 Consultation #2: Spoke with cardiology dr hoffman, pt may take his amiodarone Time: 17:03 Vital Signs Vital signs: Vital Signs - 8 hr 10/27/21 01:30 10/27/21 02:00 10/27/21 02:30 Pulse Rate 78 89 89 Respiratory Rate 17 19 16 Blood Pressure 127/58 L 127/70 110/57 L Pulse Oximetry 92 92 92 10/27/21 03:00 10/27/21 03:30 10/27/21 04:00 Pulse Rate 84 90 82 Respiratory Rate 19 19 16 Blood Pressure 116/58 L 133/64 120/55 L Pulse Oximetry 93 93 90 L 10/27/21 04:30 10/27/21 05:00 10/27/21 05:30 Pulse Rate 79 78 86 Respiratory Rate 15 14 17 Blood Pressure 134/68 135/66 142/71 H Pulse Oximetry 94 94 94 10/27/21 06:00 10/27/21 06:30 10/27/21 07:00 Pulse Rate 87 78 78 Respiratory Rate 17 15 14 Blood Pressure 132/70 137/71 151/80 H Pulse Oximetry 95 93 94 <Reva Patterson MD - Last Filed: 11/03/21 07:13> Orders Ordered: Discontinued Medications Amiodarone HCl (Amiodarone 200 Mg Tablet) 200 mg PO NOW ONE Stop: 10/26/21 17:02 Last Admin: 10/26/21 17:06 Dose: 200 mg Documented by: JACOBO Hydromorphone HCl (Hydromorphone 1 Mg Inj) 1 mg IV NOW ONE Stop: 10/26/21 15:05 Last Admin: 10/26/21 15:21 Dose: 1 mg Documented by: GENARO Sodium Chloride (Normal Saline 0.9%) 1,000 mls @ 1,000 mls/hr IV BOLUS ONE Stop: 10/26/21 10:45 Last Infusion: 10/26/21 11:43 Dose: 0 mls/hr Documented by: Admin: 10/26/21 10:27 Dose: 1,000 mls/hr Documented by: GENARO Sodium Chloride (Normal Saline 0.9%) 1,000 mls @ 75 mls/hr IV CONT KYLER Last Infusion: 10/27/21 09:34 Dose: 0 mls/hr Documented by: Admin: 10/26/21 18:15 Dose: 75 mls/hr Documented by: JACOBO Ceftriaxone Sodium 2,000 mg/ (Sodium Chloride) 100 mls @ 200 mls/hr IV NOW ONE Stop: 10/27/21 01:08 Last Infusion: 10/27/21 04:00 Dose: 0 mls/hr Documented by: Admin: 10/27/21 01:37 Dose: 200 mls/hr Documented by: RUBIN Metoprolol Succinate (Metoprolol Er 25 Mg Tablet) 25 mg PO NOW ONE Stop: 10/26/21 12:40 Last Admin: 10/26/21 12:59 Dose: 25 mg Documented by: GENARO Morphine Sulfate (Morphine 4 Mg/Ml Inj) 4 mg IV NOW ONE Stop: 10/26/21 11:51 Last Admin: 10/26/21 11:55 Dose: 4 mg Documented by: GENARO Nitroglycerin (Nitroglycerin Oint 1 Inch/Gm Oint...G.) 1 inch TOP NOW ONE Stop: 10/26/21 14:23 Last Admin: 10/26/21 15:01 Dose: 1 inch Documented by: GENARO Ondansetron HCl (Ondansetron 4 Mg/2 Ml Inj) 4 mg IV NOW ONE Stop: 10/26/21 09:54 Last Admin: 10/26/21 10:26 Dose: Not Given Documented by: GENARO Ondansetron HCl (Ondansetron 4 Mg/2 Ml Inj) 4 mg IV NOW ONE Stop: 10/26/21 15:25 Last Admin: 10/26/21 15:33 Dose: 4 mg Documented by: JACOBO Vital Signs Vital signs: Vital Signs - 8 hr 10/27/21 01:30 10/27/21 02:00 10/27/21 02:30 Pulse Rate 78 89 89 Respiratory Rate 17 19 16 Blood Pressure 127/58 L 127/70 110/57 L Pulse Oximetry 92 92 92 10/27/21 03:00 10/27/21 03:30 10/27/21 04:00 Pulse Rate 84 90 82 Respiratory Rate 19 19 16 Blood Pressure 116/58 L 133/64 120/55 L Pulse Oximetry 93 93 90 L 10/27/21 04:30 10/27/21 05:00 10/27/21 05:30 Pulse Rate 79 78 86 Respiratory Rate 15 14 17 Blood Pressure 134/68 135/66 142/71 H Pulse Oximetry 94 94 94 10/27/21 06:00 10/27/21 06:30 10/27/21 07:00 Pulse Rate 87 78 78 Respiratory Rate 17 15 14 Blood Pressure 132/70 137/71 151/80 H Pulse Oximetry 95 93 94 <Timothy Haynes, DO - Last Filed: 10/27/21 09:11> Course Course Narrative: patient needs ERCP and facility that can accommodate. Spoke with Dr. Salazar, general surgeon. Patient is to be transferred for facility that has ERCP. 6:00 p.m.. Sign out to Dr. Cerna. Patient is on waiting list for multiple hospitals for admission. Needs ERCP. Patient had run of V-tach, stable, asymptomatic. Patient did receive home dose of amiodarone. 200 mg. 0700 - ([place]). I have received signout from Dr. Patterson. Clinical course up to this point has been reviewed. I have performed an independent history and physical exam. Soon thereafter [facility] called, hospitalist happy to accept, Dr. Ross. 0909 - has called back with bed assignment, EMS dispatched. Orders Ordered: Discontinued Medications Amiodarone HCl (Amiodarone 200 Mg Tablet) 200 mg PO NOW ONE Stop: 10/26/21 17:02 Last Admin: 10/26/21 17:06 Dose: 200 mg Documented by: JACOBO Hydromorphone HCl (Hydromorphone 1 Mg Inj) 1 mg IV NOW ONE Stop: 10/26/21 15:05 Last Admin: 10/26/21 15:21 Dose: 1 mg Documented by: GENARO Sodium Chloride (Normal Saline 0.9%) 1,000 mls @ 1,000 mls/hr IV BOLUS ONE Stop: 10/26/21 10:45 Last Infusion: 10/26/21 11:43 Dose: 0 mls/hr Documented by: Admin: 10/26/21 10:27 Dose: 1,000 mls/hr Documented by: GENARO Sodium Chloride (Normal Saline 0.9%) 1,000 mls @ 75 mls/hr IV CONT KYLER Last Infusion: 10/27/21 09:34 Dose: 0 mls/hr Documented by: Admin: 10/26/21 18:15 Dose: 75 mls/hr Documented by: JACOBO Ceftriaxone Sodium 2,000 mg/ (Sodium Chloride) 100 mls @ 200 mls/hr IV NOW ONE Stop: 10/27/21 01:08 Last Infusion: 10/27/21 04:00 Dose: 0 mls/hr Documented by: Admin: 10/27/21 01:37 Dose: 200 mls/hr Documented by: RUBIN Metoprolol Succinate (Metoprolol Er 25 Mg Tablet) 25 mg PO NOW ONE Stop: 10/26/21 12:40 Last Admin: 10/26/21 12:59 Dose: 25 mg Documented by: GENARO Morphine Sulfate (Morphine 4 Mg/Ml Inj) 4 mg IV NOW ONE Stop: 10/26/21 11:51 Last Admin: 10/26/21 11:55 Dose: 4 mg Documented by: GENARO Nitroglycerin (Nitroglycerin Oint 1 Inch/Gm Oint...G.) 1 inch TOP NOW ONE Stop: 10/26/21 14:23 Last Admin: 10/26/21 15:01 Dose: 1 inch Documented by: GENARO Ondansetron HCl (Ondansetron 4 Mg/2 Ml Inj) 4 mg IV NOW ONE Stop: 10/26/21 09:54 Last Admin: 10/26/21 10:26 Dose: Not Given Documented by: GENARO Ondansetron HCl (Ondansetron 4 Mg/2 Ml Inj) 4 mg IV NOW ONE Stop: 10/26/21 15:25 Last Admin: 10/26/21 15:33 Dose: 4 mg Documented by: JACOBO Vital Signs Vital signs: Vital Signs - 8 hr 10/27/21 01:30 10/27/21 02:00 10/27/21 02:30 Pulse Rate 78 89 89 Respiratory Rate 17 19 16 Blood Pressure 127/58 L 127/70 110/57 L Pulse Oximetry 92 92 92 10/27/21 03:00 10/27/21 03:30 10/27/21 04:00 Pulse Rate 84 90 82 Respiratory Rate 19 19 16 Blood Pressure 116/58 L 133/64 120/55 L Pulse Oximetry 93 93 90 L 10/27/21 04:30 10/27/21 05:00 10/27/21 05:30 Pulse Rate 79 78 86 Respiratory Rate 15 14 17 Blood Pressure 134/68 135/66 142/71 H Pulse Oximetry 94 94 94 10/27/21 06:00 10/27/21 06:30 10/27/21 07:00 Pulse Rate 87 78 78 Respiratory Rate 17 15 14 Blood Pressure 132/70 137/71 151/80 H Pulse Oximetry 95 93 94 MDM - Abdominal Pain <Sukh Bernardo MD - Last Filed: 11/02/21 22:20> Differential Diagnosis Differential diagnosis: Likely abdominal pain, acute appendicitis, constipation, diverticulitis, gastroenteritis, pancreatitis, small bowel obstruction and other (Angina) Lab Data Result diagrams: 10/27/21 06:50 10/27/21 06:50 Labs: Lab Results 10/26/21 10/26/21 10/26/21 Range/Units 09:20 09:20 15:07 WBC 4.9 (4.5-11.0) X10^3/uL RBC 4.67 (4.5-5.9) X10^6/uL Hgb 14.0 (13.5-17.5) g/dL Hct 40.9 L (41-53) % MCV 87.5 (80-100) fL MCH 29.9 (26-34) PG MCHC 34.2 (30-36) % RDW 13.5 (11.6-14.8) % Plt Count 208 (150-400) X10^3/uL Neut % (Auto) 74.2 (50-75) % Lymph % (Auto) 17.2 L (25-40) % [place] % (Auto) 7.8 (3-14) % Eos % (Auto) 0.2 L (2-4) % Baso % (Auto) 0.6 (0-2) % Neut # (Auto) 3600 (7667-3446) /uL Lymph # (Auto) 800 L (2149-9685) /uL [place] # (Auto) 400 (0-900) /uL Eos # (Auto) 0 (0-450) /uL Baso # (Auto) 0 (0-100) /uL Sodium 136 L (137-145) mmol/L Potassium 4.3 (3.4-5.1) mmol/L Chloride 100 (98-107) mmol/L Carbon Dioxide 31 (22-32) mmol/L BUN 28 H (9-20) mg/dL Creatinine 1.15 (0.66-1.25) mg/dL Estimated GFR > 60.0 (>60) mL/min BUN/Creatinine Ratio 24.3 H (6-22) Glucose 256 H (80-110) mg/dL Calcium 10.0 (8.4-10.2) mg/dL Magnesium 1.6 (1.6-2.3) mg/dL Total Bilirubin 2.1 H (0.2-1.3) mg/dL AST 1410 H (17-59) IU/L ALT 1112 H (<50) IU/L Alkaline Phosphatase 92 (38-126) U/L Total Creatine Kinase 53 L (55-170) U/L CK-MB (CK-2) TNP CK-MB (CK-2) Rel Index TNP Troponin I 0.045 H 0.092 H (0.01-0.034) ng/mL Total Protein 7.4 (6.3-8.2) g/dL Albumin 4.4 (3.5-5.0) g/dL Globulin 3.0 (1.7-4.1) g/dL Albumin/Globulin Ratio 1.5 (1.0-2.8) Lipase 289 (23-300) U/L SARS-CoV-2 (PCR) (Negative) 10/26/21 10/27/21 10/27/21 Range/Units 21:42 00:09 06:50 WBC 5.9 (4.5-11.0) X10^3/uL RBC 4.45 L (4.5-5.9) X10^6/uL Hgb 13.2 L (13.5-17.5) g/dL Hct 39.3 L (41-53) % MCV 88.2 (80-100) fL MCH 29.6 (26-34) PG MCHC 33.6 (30-36) % RDW 13.8 (11.6-14.8) % Plt Count 181 (150-400) X10^3/uL Neut % (Auto) 69.5 (50-75) % Lymph % (Auto) 14.5 L (25-40) % [place] % (Auto) 10.7 (3-14) % Eos % (Auto) 4.7 H (2-4) % Baso % (Auto) 0.6 (0-2) % Neut # (Auto) 4100 (7606-8424) /uL Lymph # (Auto) 900 L (2001-3082) /uL [place] # (Auto) 600 (0-900) /uL Eos # (Auto) 300 (0-450) /uL Baso # (Auto) 0 (0-100) /uL Sodium 136 L (137-145) mmol/L Potassium 4.9 (3.4-5.1) mmol/L Chloride 101 (98-107) mmol/L Carbon Dioxide 28 (22-32) mmol/L BUN 20 (9-20) mg/dL Creatinine 1.08 (0.66-1.25) mg/dL Estimated GFR > 60.0 (>60) mL/min BUN/Creatinine Ratio 18.5 (6-22) Glucose 209 H (80-110) mg/dL Calcium 9.0 (8.4-10.2) mg/dL Magnesium (1.6-2.3) mg/dL Total Bilirubin 4.4 H (0.2-1.3) mg/dL AST 811 H (17-59) IU/L ALT 1074 H (<50) IU/L Alkaline Phosphatase 91 (38-126) U/L Total Creatine Kinase (55-170) U/L CK-MB (CK-2) CK-MB (CK-2) Rel Index Troponin I 0.075 H (0.01-0.034) ng/mL Total Protein 7.1 (6.3-8.2) g/dL Albumin 4.0 (3.5-5.0) g/dL Globulin 3.1 (1.7-4.1) g/dL Albumin/Globulin Ratio 1.3 (1.0-2.8) Lipase (23-300) U/L SARS-CoV-2 (PCR) Negative (Negative) 10/27/21 10/27/21 Range/Units 06:50 06:50 WBC (4.5-11.0) X10^3/uL RBC (4.5-5.9) X10^6/uL Hgb (13.5-17.5) g/dL Hct (41-53) % MCV (80-100) fL MCH (26-34) PG MCHC (30-36) % RDW (11.6-14.8) % Plt Count (150-400) X10^3/uL Neut % (Auto) (50-75) % Lymph % (Auto) (25-40) % [place] % (Auto) (3-14) % Eos % (Auto) (2-4) % Baso % (Auto) (0-2) % Neut # (Auto) (7984-5750) /uL Lymph # (Auto) (1585-8077) /uL [place] # (Auto) (0-900) /uL Eos # (Auto) (0-450) /uL Baso # (Auto) (0-100) /uL Sodium 136 L (137-145) mmol/L Potassium 4.6 (3.4-5.1) mmol/L Chloride 100 (98-107) mmol/L Carbon Dioxide 29 (22-32) mmol/L BUN 18 (9-20) mg/dL Creatinine 1.24 (0.66-1.25) mg/dL Estimated GFR 59.1 L (>60) mL/min BUN/Creatinine Ratio 14.5 (6-22) Glucose 217 H (80-110) mg/dL Calcium 9.0 (8.4-10.2) mg/dL Magnesium (1.6-2.3) mg/dL Total Bilirubin 5.5 H (0.2-1.3) mg/dL AST 530 H (17-59) IU/L ALT 885 H (<50) IU/L Alkaline Phosphatase 114 (38-126) U/L Total Creatine Kinase (55-170) U/L CK-MB (CK-2) CK-MB (CK-2) Rel Index Troponin I 0.053 H (0.01-0.034) ng/mL Total Protein 6.7 (6.3-8.2) g/dL Albumin 3.9 (3.5-5.0) g/dL Globulin 2.8 (1.7-4.1) g/dL Albumin/Globulin Ratio 1.4 (1.0-2.8) Lipase (23-300) U/L SARS-CoV-2 (PCR) (Negative) Point of care testing: Point of Care Testing Glucose POC [address] scan - abdomen/pelvis: Radiologist's Impression: [address] [address] [address] Scan Report Signed Patient: Poncho Navarro MR#: [id number] : 1960 Acct:[id number] Age/Sex: 61 / M Date of Service: 10/26/21 Loc: ED Accession Number: [id number] ?? Procedure: CT abdomen pelvis wo con Ordering Provider: Sukh Bernardo MD PROCEDURE:? CT ABDOMEN PELVIS WO CON ? INDICATIONS:? Epigastric pain ? TECHNIQUE:? Noncontrast 5 mm thick sections acquired from the diaphragms to the symphysis.? 5 mm coronal and sagittal reformats were then performed.? For radiation dose reduction, the following was used:? automated exposure control, adjustment of mA and/or kV according to patient size.? ? COMPARISON:? [facility], CT, IVP (ABD & PEL WWO CONTRAST), 08/16/2016, 1:09.? [facility], CT, KIDNEY/ URETER/BLADDER, 01/04/2014, 8:05. ? FINDINGS:? Image quality:? Excellent.? ? ABDOMEN:? Lung bases:? Lung bases are clear.? Heart size is normal.? ? Solid organs:? Liver is normal in size.? The gallbladder is mildly distended.? There is trace wall thickening or pericholecystic fat stranding which is incompletely characterized in the absence of contrast.? In the central region of the common bile duct there is a 2 mm calcification (series 2/image 37).? Small ductal stone cannot be excluded.? Pancreas is normal in contours.? Spleen is normal in size.? No adrenal nodules.? Kidneys are normal in size, without hydronephrosis or nephrolithiasis.? There is a low-density exophytic left renal cystic lesion. ? Peritoneum and bowel:? Unenhanced bowel loops demonstrate normal wall thickness and caliber. The appendix is thin walled and gas filled. There are scattered sigmoid diverticula. No evidence for diverticulitis.? No free fluid or air.? ? Nodes and vessels:? No retroperitoneal or mesenteric adenopathy by size criteria.? Aorta and inferior vena cava are normal in caliber.? There are scattered atheromatous calcifications throughout the aorta and iliac arteries bilaterally. ? Miscellaneous:? No ventral hernias.? ? ? PELVIS:? Genitourinary:? Bladder wall thickness is normal.? ? Miscellaneous:? No inguinal adenopathy.? There is a small left fat containing inguinal hernia. ? Bones:? No suspicious bony lesions.? No vertebral body compression fractures.? ? IMPRESSION:? ? 1. Questionable gallbladder wall thickening or pericholecystic fat stranding which is incompletely characterized on this noncontrast study.? Additionally, there is a questionable calculus at the central aspect of the common bile duct.? If there is clinical suspicion for acute cholecystitis, right upper quadrant ultrasound or MRCP is recommended to further characterize findings. Of note, there is no intrahepatic biliary ductal dilatation to suggest biliary obstruction.? ? Dictated by: Alice Brown M.D. on 10/26/2021 at 10:05 ? ? Approved by: Alice Brown M.D. on 10/26/2021 at 10:11 ? Chest x-ray: Radiologist's Impression: [address] [address] XRay Report Signed Patient: Poncho Navarro MR#: [id number] : 1960 Acct:[id number] Age/Sex: 61 / M Date of Service: 10/26/21 Loc: ED Accession Number: [id number] ?? Procedure: XR chest 1V Ordering Provider: Sukh Bernardo MD PROCEDURE:? XR CHEST 1V ? INDICATIONS:? chest pain ? TECHNIQUE:? One view of the chest was acquired.? ? COMPARISON:? [facility], CR, XR CHEST 1V, 05/04/2019, 18:31.? [facility], CR, XR CHEST 2V, 09/11/2021, 17:35. ? FINDINGS:? ? Surgical changes and devices:? Patient is status post median sternotomy.? The superior wire is fractured.? This appears new when compared with the study dated September 11, 2021. ? Lungs and pleura:? Lungs are clear.? No pleural effusions or pneumothorax.? ? Mediastinum:? Mediastinal contours appear normal.? Heart size is normal.? ? Bones and chest wall:? No suspicious bony lesions.? Overlying soft tissues appear unremarkable.? ? IMPRESSION:? No acute cardiopulmonary findings. Fractured superior sternotomy wire which may be new when compared with the study dated September 11, 2021. ? Dictated by: Alice Brown M.D. on 10/26/2021 at 10:03 ? ? Approved by: Alice Brown M.D. on 10/26/2021 at 10:04 ? ECG Data Interpretation: Sinus tachycardia rate 112. No ST elevation or depression MDM Narrative Medical decision making narrative: Appropriate for transfer. Patient will need ERCP/MRCP. We do not have this services here. <Reva Patterson MD - Last Filed: 11/03/21 07:13> Lab Data Labs: Lab Results 10/26/21 10/26/21 10/26/21 Range/Units 09:20 09:20 15:07 WBC 4.9 (4.5-11.0) X10^3/uL RBC 4.67 (4.5-5.9) X10^6/uL Hgb 14.0 (13.5-17.5) g/dL Hct 40.9 L (41-53) % MCV 87.5 (80-100) fL MCH 29.9 (26-34) PG MCHC 34.2 (30-36) % RDW 13.5 (11.6-14.8) % Plt Count 208 (150-400) X10^3/uL Neut % (Auto) 74.2 (50-75) % Lymph % (Auto) 17.2 L (25-40) % [place] % (Auto) 7.8 (3-14) % Eos % (Auto) 0.2 L (2-4) % Baso % (Auto) 0.6 (0-2) % Neut # (Auto) 3600 (3222-8936) /uL Lymph # (Auto) 800 L (2798-6620) /uL [place] # (Auto) 400 (0-900) /uL Eos # (Auto) 0 (0-450) /uL Baso # (Auto) 0 (0-100) /uL Sodium 136 L (137-145) mmol/L Potassium 4.3 (3.4-5.1) mmol/L Chloride 100 (98-107) mmol/L Carbon Dioxide 31 (22-32) mmol/L BUN 28 H (9-20) mg/dL Creatinine 1.15 (0.66-1.25) mg/dL Estimated GFR > 60.0 (>60) mL/min BUN/Creatinine Ratio 24.3 H (6-22) Glucose 256 H (80-110) mg/dL Calcium 10.0 (8.4-10.2) mg/dL Magnesium 1.6 (1.6-2.3) mg/dL Total Bilirubin 2.1 H (0.2-1.3) mg/dL AST 1410 H (17-59) IU/L ALT 1112 H (<50) IU/L Alkaline Phosphatase 92 (38-126) U/L Total Creatine Kinase 53 L (55-170) U/L CK-MB (CK-2) TNP CK-MB (CK-2) Rel Index TNP Troponin I 0.045 H 0.092 H (0.01-0.034) ng/mL Total Protein 7.4 (6.3-8.2) g/dL Albumin 4.4 (3.5-5.0) g/dL Globulin 3.0 (1.7-4.1) g/dL Albumin/Globulin Ratio 1.5 (1.0-2.8) Lipase 289 (23-300) U/L SARS-CoV-2 (PCR) (Negative) 10/26/21 10/27/21 10/27/21 Range/Units 21:42 00:09 06:50 WBC 5.9 (4.5-11.0) X10^3/uL RBC 4.45 L (4.5-5.9) X10^6/uL Hgb 13.2 L (13.5-17.5) g/dL Hct 39.3 L (41-53) % MCV 88.2 (80-100) fL MCH 29.6 (26-34) PG MCHC 33.6 (30-36) % RDW 13.8 (11.6-14.8) % Plt Count 181 (150-400) X10^3/uL Neut % (Auto) 69.5 (50-75) % Lymph % (Auto) 14.5 L (25-40) % [place] % (Auto) 10.7 (3-14) % Eos % (Auto) 4.7 H (2-4) % Baso % (Auto) 0.6 (0-2) % Neut # (Auto) 4100 (5969-0619) /uL Lymph # (Auto) 900 L (5174-0628) /uL [place] # (Auto) 600 (0-900) /uL Eos # (Auto) 300 (0-450) /uL Baso # (Auto) 0 (0-100) /uL Sodium 136 L (137-145) mmol/L Potassium 4.9 (3.4-5.1) mmol/L Chloride 101 (98-107) mmol/L Carbon Dioxide 28 (22-32) mmol/L BUN 20 (9-20) mg/dL Creatinine 1.08 (0.66-1.25) mg/dL Estimated GFR > 60.0 (>60) mL/min BUN/Creatinine Ratio 18.5 (6-22) Glucose 209 H (80-110) mg/dL Calcium 9.0 (8.4-10.2) mg/dL Magnesium (1.6-2.3) mg/dL Total Bilirubin 4.4 H (0.2-1.3) mg/dL AST 811 H (17-59) IU/L ALT 1074 H (<50) IU/L Alkaline Phosphatase 91 (38-126) U/L Total Creatine Kinase (55-170) U/L CK-MB (CK-2) CK-MB (CK-2) Rel Index Troponin I 0.075 H (0.01-0.034) ng/mL Total Protein 7.1 (6.3-8.2) g/dL Albumin 4.0 (3.5-5.0) g/dL Globulin 3.1 (1.7-4.1) g/dL Albumin/Globulin Ratio 1.3 (1.0-2.8) Lipase (23-300) U/L SARS-CoV-2 (PCR) Negative (Negative) 10/27/21 10/27/21 Range/Units 06:50 06:50 WBC (4.5-11.0) X10^3/uL RBC (4.5-5.9) X10^6/uL Hgb (13.5-17.5) g/dL Hct (41-53) % MCV (80-100) fL MCH (26-34) PG MCHC (30-36) % RDW (11.6-14.8) % Plt Count (150-400) X10^3/uL Neut % (Auto) (50-75) % Lymph % (Auto) (25-40) % [place] % (Auto) (3-14) % Eos % (Auto) (2-4) % Baso % (Auto) (0-2) % Neut # (Auto) (6498-8119) /uL Lymph # (Auto) (2904-2891) /uL [place] # (Auto) (0-900) /uL Eos # (Auto) (0-450) /uL Baso # (Auto) (0-100) /uL Sodium 136 L (137-145) mmol/L Potassium 4.6 (3.4-5.1) mmol/L Chloride 100 (98-107) mmol/L Carbon Dioxide 29 (22-32) mmol/L BUN 18 (9-20) mg/dL Creatinine 1.24 (0.66-1.25) mg/dL Estimated GFR 59.1 L (>60) mL/min BUN/Creatinine Ratio 14.5 (6-22) Glucose 217 H (80-110) mg/dL Calcium 9.0 (8.4-10.2) mg/dL Magnesium (1.6-2.3) mg/dL Total Bilirubin 5.5 H (0.2-1.3) mg/dL AST 530 H (17-59) IU/L ALT 885 H (<50) IU/L Alkaline Phosphatase 114 (38-126) U/L Total Creatine Kinase (55-170) U/L CK-MB (CK-2) CK-MB (CK-2) Rel Index Troponin I 0.053 H (0.01-0.034) ng/mL Total Protein 6.7 (6.3-8.2) g/dL Albumin 3.9 (3.5-5.0) g/dL Globulin 2.8 (1.7-4.1) g/dL Albumin/Globulin Ratio 1.4 (1.0-2.8) Lipase (23-300) U/L SARS-CoV-2 (PCR) (Negative) Point of care testing: Point of Care Testing Glucose POC 242 MDM Narrative Medical decision making narrative: Appropriate for transfer. Patient will need ERCP/MRCP. We do not have this services here. 6pm 10/26/21Dr Yesenia Desir is assumed 61-year-old gentleman presents with epigastric pain and is found to have elevated total bili, AST ALT in the CT scan suggesting a calculus in the central aspect of the common bile duct without intrahepatic biliary ductal dilatation to suggest biliary obstruction. CT scan also notes questionable gallbladder wall thickening or pericholecystic fat stranding. Care is reviewed with General surgery who recommended transfer to facility with ERCP capacity. There is no immediate bed capacity and extended ER stay is anticipated. Will begin ceftriaxone at this time. Repeat blood work this evening indicates that his bilirubin is increasing from 2.1-4.4. AST and ALT are both slightly trending down Patient has a history of CABG at the end of July of this year with history of arrhythmia and is on amiodarone at home. He had an asymptomatic run of ventricular tachycardia during his initial ER stay. Troponin was initially noted to be 0.045, increased 2.0 9 2 and has now trended down to .075. With this run of ventricular tachycardia appreciated, Cardiology was consulted and he was given additional dose of amiodarone in the emergency department. Patient is diabetic and on Lantus 24 units subQ twice a day additional problems include hypothyroidism and hypertension. Will continue bed availability search 5am No bed available: [email or web address] formerly [facility], [facility], , [facility] wait list and will need day phone calls: Yulia Hua didn't return calls: overlake, <Timothy Haynes, - Last Filed: 10/27/21 09:11> Lab Data Labs: Lab Results 10/26/21 10/26/21 10/26/21 Range/Units 09:20 09:20 15:07 WBC 4.9 (4.5-11.0) X10^3/uL RBC 4.67 (4.5-5.9) X10^6/uL Hgb 14.0 (13.5-17.5) g/dL Hct 40.9 L (41-53) % MCV 87.5 (80-100) fL MCH 29.9 (26-34) PG MCHC 34.2 (30-36) % RDW 13.5 (11.6-14.8) % Plt Count 208 (150-400) X10^3/uL Neut % (Auto) 74.2 (50-75) % Lymph % (Auto) 17.2 L (25-40) % [place] % (Auto) 7.8 (3-14) % Eos % (Auto) 0.2 L (2-4) % Baso % (Auto) 0.6 (0-2) % Neut # (Auto) 3600 (4978-5473) /uL Lymph # (Auto) 800 L (0835-2401) /uL [place] # (Auto) 400 (0-900) /uL Eos # (Auto) 0 (0-450) /uL Baso # (Auto) 0 (0-100) /uL Sodium 136 L (137-145) mmol/L Potassium 4.3 (3.4-5.1) mmol/L Chloride 100 (98-107) mmol/L Carbon Dioxide 31 (22-32) mmol/L BUN 28 H (9-20) mg/dL Creatinine 1.15 (0.66-1.25) mg/dL Estimated GFR > 60.0 (>60) mL/min BUN/Creatinine Ratio 24.3 H (6-22) Glucose 256 H (80-110) mg/dL Calcium 10.0 (8.4-10.2) mg/dL Magnesium 1.6 (1.6-2.3) mg/dL Total Bilirubin 2.1 H (0.2-1.3) mg/dL AST 1410 H (17-59) IU/L ALT 1112 H (<50) IU/L Alkaline Phosphatase 92 (38-126) U/L Total Creatine Kinase 53 L (55-170) U/L CK-MB (CK-2) TNP CK-MB (CK-2) Rel Index TNP Troponin I 0.045 H 0.092 H (0.01-0.034) ng/mL Total Protein 7.4 (6.3-8.2) g/dL Albumin 4.4 (3.5-5.0) g/dL Globulin 3.0 (1.7-4.1) g/dL Albumin/Globulin Ratio 1.5 (1.0-2.8) Lipase 289 (23-300) U/L SARS-CoV-2 (PCR) (Negative) 10/26/21 10/27/21 10/27/21 Range/Units 21:42 00:09 06:50 WBC 5.9 (4.5-11.0) X10^3/uL RBC 4.45 L (4.5-5.9) X10^6/uL Hgb 13.2 L (13.5-17.5) g/dL Hct 39.3 L (41-53) % MCV 88.2 (80-100) fL MCH 29.6 (26-34) PG MCHC 33.6 (30-36) % RDW 13.8 (11.6-14.8) % Plt Count 181 (150-400) X10^3/uL Neut % (Auto) 69.5 (50-75) % Lymph % (Auto) 14.5 L (25-40) % [place] % (Auto) 10.7 (3-14) % Eos % (Auto) 4.7 H (2-4) % Baso % (Auto) 0.6 (0-2) % Neut # (Auto) 4100 (6223-8884) /uL Lymph # (Auto) 900 L (3488-8073) /uL [place] # (Auto) 600 (0-900) /uL Eos # (Auto) 300 (0-450) /uL Baso # (Auto) 0 (0-100) /uL Sodium 136 L (137-145) mmol/L Potassium 4.9 (3.4-5.1) mmol/L Chloride 101 (98-107) mmol/L Carbon Dioxide 28 (22-32) mmol/L BUN 20 (9-20) mg/dL Creatinine 1.08 (0.66-1.25) mg/dL Estimated GFR > 60.0 (>60) mL/min BUN/Creatinine Ratio 18.5 (6-22) Glucose 209 H (80-110) mg/dL Calcium 9.0 (8.4-10.2) mg/dL Magnesium (1.6-2.3) mg/dL Total Bilirubin 4.4 H (0.2-1.3) mg/dL AST 811 H (17-59) IU/L ALT 1074 H (<50) IU/L Alkaline Phosphatase 91 (38-126) U/L Total Creatine Kinase (55-170) U/L CK-MB (CK-2) CK-MB (CK-2) Rel Index Troponin I 0.075 H (0.01-0.034) ng/mL Total Protein 7.1 (6.3-8.2) g/dL Albumin 4.0 (3.5-5.0) g/dL Globulin 3.1 (1.7-4.1) g/dL Albumin/Globulin Ratio 1.3 (1.0-2.8) Lipase (23-300) U/L SARS-CoV-2 (PCR) Negative (Negative) 10/27/21 10/27/21 Range/Units 06:50 06:50 WBC (4.5-11.0) X10^3/uL RBC (4.5-5.9) X10^6/uL Hgb (13.5-17.5) g/dL Hct (41-53) % MCV (80-100) fL MCH (26-34) PG MCHC (30-36) % RDW (11.6-14.8) % Plt Count (150-400) X10^3/uL Neut % (Auto) (50-75) % Lymph % (Auto) (25-40) % [place] % (Auto) (3-14) % Eos % (Auto) (2-4) % Baso % (Auto) (0-2) % Neut # (Auto) (3015-3704) /uL Lymph # (Auto) (6462-9601) /uL [place] # (Auto) (0-900) /uL Eos # (Auto) (0-450) /uL Baso # (Auto) (0-100) /uL Sodium 136 L (137-145) mmol/L Potassium 4.6 (3.4-5.1) mmol/L Chloride 100 (98-107) mmol/L Carbon Dioxide 29 (22-32) mmol/L BUN 18 (9-20) mg/dL Creatinine 1.24 (0.66-1.25) mg/dL Estimated GFR 59.1 L (>60) mL/min BUN/Creatinine Ratio 14.5 (6-22) Glucose 217 H (80-110) mg/dL Calcium 9.0 (8.4-10.2) mg/dL Magnesium (1.6-2.3) mg/dL Total Bilirubin 5.5 H (0.2-1.3) mg/dL AST 530 H (17-59) IU/L ALT 885 H (<50) IU/L Alkaline Phosphatase 114 (38-126) U/L Total Creatine Kinase (55-170) U/L CK-MB (CK-2) CK-MB (CK-2) Rel Index Troponin I 0.053 H (0.01-0.034) ng/mL Total Protein 6.7 (6.3-8.2) g/dL Albumin 3.9 (3.5-5.0) g/dL Globulin 2.8 (1.7-4.1) g/dL Albumin/Globulin Ratio 1.4 (1.0-2.8) Lipase (23-300) U/L SARS-CoV-2 (PCR) (Negative) Point of care testing: Point of Care Testing Glucose POC 242 <Timothy Haynes, DO - Last Filed: 10/27/21 09:11> Critical Care Time Critical Care Time: Yes Total Critical Care Time: 45 Attestation: The high probability of a clinically significant, sudden or life threatening deterioration of the [CV/GI] system(s) required my full and direct attention, intervention and personal management. The aggregate critical care time was [45] minutes. This time is in addition to time spent performing reported procedures but includes the following: [x] Data Review and interpretation [x] Patient assessment and monitoring of vital signs [x] Documentation [x] Medication orders and management Discharge Plan Departure Patient Disposition: [facility] Clinical Impression: Choledocholithiasis, Elevated troponin, Ventricular tachycardia seen on cardiac/vascular sonographer Prescriptions: No Action clopidogrel 75 mg tablet 75 mg PO DAILY 0RF rosuvastatin 10 mg tablet 40 mg PO DAILY 0RF allopurinol 100 mg tablet 100 mg PO DAILY 0RF aspirin 81 mg Tablet,Delayed Release (Dr/Ec) 81 mg PO DAILY Qty: 0 0RF losartan 50 mg tablet 50 mg PO DAILY 0RF hydrochlorothiazide 25 mg tablet 25 mg PO DAILY 0RF levothyroxine 112 mcg tablet 224 mcg PO DAILY 0RF metoprolol tartrate 25 mg Tablet 25 mg PO BID 0RF insulin aspart U-100 100 unit/mL (3 mL) insulin pen 6 sliding scale dose SUBCUT AC 0RF Label Comments: takes 6 units tid with meals Lantus Solostar U-100 Insulin 100 unit/mL (3 mL) insulin pen 24 unit SUBCUT BID 0RF Label Comments: INJECT 30 UNITS SUBCUTANEOUSLY TWICE A DAY metformin 500 mg tablet 500 mg PO BID 0RF Label Comments: TAKE ONE TABLET BY MOUTH TWICE DAILY Referrals: Mike Correa MD [Primary Care Provider] -
[2021-10-26 09:51] LABS: Aspartate Aminotransferase 1410 IU/L (17-59)
[2021-10-26 09:53] LABS: Alanine Aminotransferase 1112 IU/L (<50)
--- NOTE | 2021-10-26 09:55 | DI.CT.S_ITS ---
PROCEDURE: CT ABDOMEN PELVIS WO CON INDICATIONS: Epigastric pain TECHNIQUE: Noncontrast 5 mm thick sections acquired from the diaphragms to the symphysis. 5 mm coronal and sagittal reformats were then performed. For radiation dose reduction, the following was used: automated exposure control, adjustment of mA and/or kV according to patient size. COMPARISON: [facility], CT, IVP (ABD & PEL WWO CONTRAST), 08/16/2016, 1:09. [facility], CT, KIDNEY/ URETER/BLADDER, 01/04/2014, 8:05. FINDINGS: Image quality: Excellent. ABDOMEN: Lung bases: Lung bases are clear. Heart size is normal. Solid organs: Liver is normal in size. The gallbladder is mildly distended. There is trace wall thickening or pericholecystic fat stranding which is incompletely characterized in the absence of contrast. In the central region of the common bile duct there is a 2 mm calcification (series 2/image 37). Small ductal stone cannot be excluded. Pancreas is normal in contours. Spleen is normal in size. No adrenal nodules. Kidneys are normal in size, without hydronephrosis or nephrolithiasis. There is a low-density exophytic left renal cystic lesion. Peritoneum and bowel: Unenhanced bowel loops demonstrate normal wall thickness and caliber. The appendix is thin walled and gas filled. There are scattered sigmoid diverticula. No evidence for diverticulitis. No free fluid or air. Nodes and vessels: No retroperitoneal or mesenteric adenopathy by size criteria. Aorta and inferior vena cava are normal in caliber. There are scattered atheromatous calcifications throughout the aorta and iliac arteries bilaterally. Miscellaneous: No ventral hernias. PELVIS: Genitourinary: Bladder wall thickness is normal. Miscellaneous: No inguinal adenopathy. There is a small left fat containing inguinal hernia. Bones: No suspicious bony lesions. No vertebral body compression fractures. IMPRESSION: 1. Questionable gallbladder wall thickening or pericholecystic fat stranding which is incompletely characterized on this noncontrast study. Additionally, there is a questionable calculus at the central aspect of the common bile duct. If there is clinical suspicion for acute cholecystitis, right upper quadrant ultrasound or MRCP is recommended to further characterize findings. Of note, there is no intrahepatic biliary ductal dilatation to suggest biliary obstruction. Dictated by: Alice Brown M.D. on 10/26/2021 at 10:05 Approved by: Alice Brown M.D. on 10/26/2021 at 10:11
[2021-10-26 09:57] LABS: Troponin I 0.045 ng/mL (0.01-0.034)
[2021-10-26] MEDS: SODIUM CHLORIDE 0.9% 1,000 ML 1000 ML IV (10:27)
[2021-10-26] MEDS: MORPHINE 4 MG/ML INJ IV (11:55)
[2021-10-26] MEDS: METOPROLOL ER 25 MG TABLET PO (12:59)
[2021-10-26] MEDS: NITROGLYCERIN OINT 1 INCH/GM OINT...G. TOP (15:01)
[2021-10-26] MEDS: HYDROMORPHONE 1 MG INJ IV (15:21)
[2021-10-26] MEDS: ONDANSETRON 4 MG/2 ML INJ IV (15:33)
[2021-10-26 15:38] LABS: Troponin I 0.092 ng/mL (0.01-0.034)
--- NOTE | 2021-10-26 16:44 | PC.NURSE ---
Patient had a 20sec run of VTACH, during that time patient was in and out of sleep. Denied chest pain or SOB. Patient placed on defibrillator pads and provider at bedside. Patient remains asymptomatic.
[2021-10-26] MEDS: AMIODARONE 200 MG TABLET PO (17:06)
[2021-10-26] MEDS: SODIUM CHLORIDE 0.9% 1,000 ML 75 ML IV (18:15)
[2021-10-26 22:18] LABS: Troponin I 0.075 ng/mL (0.01-0.034)
[2021-10-26 22:19] LABS: Albumin Globulin Ratio 1.3 (1.0-2.8); Alkaline Phosphatase 91 U/L (38-126); BUN Creatinine Ratio 18.5 (6-22); Bilirubin Total 4.4 mg/dL (0.2-1.3); Blood Urea Nitrogen 20 mg/dL (9-20); Carbon Dioxide 28 mmol/L (22-32); Chloride 101 mmol/L (98-107); Estimated Glomerular Filt Rate > 60.0 mL/min (>60); Globulin 3.1 g/dL (1.7-4.1); Glucose 209 mg/dL (80-110); Potassium 4.9 mmol/L (3.4-5.1); Sodium 136 mmol/L (137-145); Total Protein 7.1 g/dL (6.3-8.2)
[2021-10-26 22:20] LABS: Alanine Aminotransferase 1074 IU/L (<50); HEMOLYSIS 110 (0-50)
[2021-10-26 22:21] LABS: Aspartate Aminotransferase 811 IU/L (17-59)
[2021-10-27] VITALS (22 sets, daily range): BP systolic 110–161; BP diastolic 55–88; PULSE 69–96; RESP 14–23; TEMP 36.5; O2SAT 90–96
[2021-10-27 00:29] LABS: COVID19 -Nasal RAPID Negative (Negative)
[2021-10-27] MEDS: cefTRIAXone 2,000 MG in SODIUM CHLORIDE 0.9% 100 ML 200 ML IV (01:37)
--- NOTE | 2021-10-27 01:45 | PC.NURSE ---
BGL 196 at 0140
[2021-10-27 07:10] LABS: Add Manual Diff / Slide Review NO; Basophils Absolute Auto 0 /uL (0-100); Basophils Percent Auto 0.6 % (0-2); Eosinophils Absolute Auto 300 /uL (0-450); Eosinophils Percent Auto 4.7 % (2-4); Hematocrit 39.3 % (41-53); Hemoglobin 13.2 g/dL (13.5-17.5); Lymphocytes Absolute Auto 900 /uL (1100-4500); Lymphocytes Percent Auto 14.5 % (25-40); Mean Corpuscular HGB Conc 33.6 % (30-36); Mean Corpuscular Hemoglobin 29.6 PG (26-34); Mean Corpuscular Volume 88.2 fL (80-100); Monocytes Absolute Auto 600 /uL (0-900); Monocytes Percent Auto 10.7 % (3-14); Neutrophils Absolute Auto 4100 /uL (1500-7000); Neutrophils Percent Auto 69.5 % (50-75); Platelet Count 181 X10^3/uL (150-400); Red Blood Cell Count 4.45 X10^6/uL (4.5-5.9); Red Cell Distribution Width 13.8 % (11.6-14.8); White Blood Cell Count 5.9 X10^3/uL (4.5-11.0)
[2021-10-27 07:23] LABS: Albumin 3.9 g/dL (3.5-5.0); Albumin Globulin Ratio 1.4 (1.0-2.8); Alkaline Phosphatase 114 U/L (38-126); Aspartate Aminotransferase 530 IU/L (17-59); BUN Creatinine Ratio 14.5 (6-22); Bilirubin Total 5.5 mg/dL (0.2-1.3); Blood Urea Nitrogen 18 mg/dL (9-20); Carbon Dioxide 29 mmol/L (22-32); Chloride 100 mmol/L (98-107); Estimated Glomerular Filt Rate 59.1 mL/min (>60); Globulin 2.8 g/dL (1.7-4.1); Glucose 217 mg/dL (80-110); HEMOLYSIS < 15 (0-50); Potassium 4.6 mmol/L (3.4-5.1); Sodium 136 mmol/L (137-145); Total Protein 6.7 g/dL (6.3-8.2)
[2021-10-27 07:30] LABS: Alanine Aminotransferase 885 IU/L (<50)
[2021-10-27 07:34] LABS: Troponin I 0.053 ng/mL (0.01-0.034)
--- NOTE | 2021-10-27 09:44 | PC.NURSE ---
voided 850 yellow juanjo urine. report nurse report [phone] mariza.
== END 2021-10-27 09:55 | disposition short-term general hospital (02) ==
PROVIDERS: Emergency Medicine; Emergency Provider Emergency Medicine; PCP Internal Medicine
DX: K80.50 Calculus of bile duct without cholangitis or cholecystitis without obstruction (principal); R77.8 Other specified abnormalities of plasma proteins; I47.2 Ventricular tachycardia; Z20.822 Contact with and (suspected) exposure to COVID-19
CPT/HCPCS: 36415; 71045; 74176; 74177; 80053; 82550; 82962; 83690; 83735; 84484; 85025; 87635; 93005; 96361; 96365; 96366; 96375; 99285; 99291; C9803; J0696; J1170; J2270; J2405

== ENCOUNTER → 2021-11-16 07:09 | Outpatient (CLI) | payer OTHER, SELFPAY ==
[2021-11-16 08:21] LABS: Hemoglobin A1C% w Est Avg Glu 7.8 % (4.0-6.0)
[2021-11-16 08:25] LABS: Alanine Aminotransferase 30 IU/L (<50); Albumin 4.1 g/dL (3.5-5.0); Albumin Globulin Ratio 1.5 (1.0-2.8); Alkaline Phosphatase 69 U/L (38-126); Aspartate Aminotransferase 28 IU/L (17-59); BUN Creatinine Ratio 24.4 (6-22); Bilirubin Total 0.8 mg/dL (0.2-1.3); Blood Urea Nitrogen 31 mg/dL (9-20); Calcium 9.2 mg/dL (8.4-10.2); Carbon Dioxide 29 mmol/L (22-32); Chloride 105 mmol/L (98-107); Estimated Glomerular Filt Rate > 60 mL/min (>60); Globulin 2.7 g/dL (1.7-4.1); Glucose 179 mg/dL (80-110); HEMOLYSIS < 15 (0-50); Potassium 5.3 mmol/L (3.4-5.1); Sodium 140 mmol/L (137-145); Total Protein 6.8 g/dL (6.3-8.2)
[2021-11-16 08:46] LABS: Creatinine Urine Random 129.5 mg/dL
[2021-11-16 09:04] LABS: Microalbumin Urine Random 94.8 mg/dL (0-1.6)
== END ==
PROVIDERS: PCP Internal Medicine; Referring Provider Nurse Practitioner; Visit Provider Nurse Practitioner
DX: I10 Essential (primary) hypertension (principal)
CPT/HCPCS: 36415; 80053; 82043; 82570; 83036

== ENCOUNTER → 2021-12-04 11:27 | Outpatient (CLI) | payer OTHER, SELFPAY ==
[2021-12-04 14:09] LABS: COVID-19 CEPHEID PCR (VTM/NP) Negative (Negative)
== END ==
PROVIDERS: PCP Internal Medicine; Visit Provider Family Medicine Sleep Medicine
DX: Z20.822 Contact with and (suspected) exposure to COVID-19 (principal)
CPT/HCPCS: C9803; U0003; U0005

== ENCOUNTER → 2022-02-06 11:25 | Outpatient (CLI) | payer OTHER, SELFPAY ==
[2022-02-06 12:35] LABS: Hematocrit 42.9 % (41-53); Hemoglobin 14.7 g/dL (13.5-17.5)
[2022-02-06 13:02] LABS: BUN Creatinine Ratio 21.8 (6-22); Blood Urea Nitrogen 34 mg/dL (9-20); Calcium 9.2 mg/dL (8.4-10.2); Carbon Dioxide 31 mmol/L (22-32); Chloride 98 mmol/L (98-107); Estimated Glomerular Filt Rate 50 mL/min (>60); Glucose 195 mg/dL (80-110); HEMOLYSIS < 15 (0-50); Potassium 5.3 mmol/L (3.4-5.1); Sodium 136 mmol/L (137-145)
[2022-02-06 14:09] LABS: Protein (Total) Urine Random 152 mg/dL (0-12)
[2022-02-06 15:03] LABS: Creatinine Urine Random 224.5 mg/dL; Protein Creatinine Ratio Urine 0.67 GRAM/24H
[2022-02-07 08:09] LABS: Calcium 8.1 mg/dL (8.6-10.2); Parathyroid Hormone, Intact 41 pg/mL (15-65)
== END ==
PROVIDERS: PCP Internal Medicine; Referring Provider Student in an Organized Health Care Education/Training Program; Visit Provider Student in an Organized Health Care Education/Training Program
DX: N05.9 Unspecified nephritic syndrome with unspecified morphologic changes (principal); D64.9 Anemia, unspecified; N25.81 Secondary hyperparathyroidism of renal origin; R80.9 Proteinuria, unspecified
CPT/HCPCS: 36415; 80048; 82310; 82570; 83970; 84156; 85014; 85018

== ENCOUNTER → 2022-03-14 15:42 | Outpatient (CLI) | payer OTHER, SELFPAY ==
[2022-03-14 16:35] LABS: BUN Creatinine Ratio 21.1 (6-22); Blood Urea Nitrogen 28 mg/dL (9-20); Calcium 8.7 mg/dL (8.4-10.2); Carbon Dioxide 29 mmol/L (22-32); Chloride 98 mmol/L (98-107); Estimated Glomerular Filt Rate > 60 mL/min (>60); Glucose 219 mg/dL (80-110); HEMOLYSIS < 15 (0-50); Potassium 4.6 mmol/L (3.4-5.1); Sodium 135 mmol/L (137-145)
== END ==
PROVIDERS: PCP Internal Medicine; Referring Provider Student in an Organized Health Care Education/Training Program; Visit Provider Student in an Organized Health Care Education/Training Program
DX: N05.9 Unspecified nephritic syndrome with unspecified morphologic changes (principal)
CPT/HCPCS: 36415; 80048

== ENCOUNTER → 2022-03-17 10:26 | Outpatient (CLI) | payer OTHER, SELFPAY ==
[2022-03-17 13:23] LABS: COVID-19 CEPHEID PCR (VTM/NP) Negative (Negative)
== END ==
PROVIDERS: PCP Internal Medicine; Visit Provider Physician Assistant
DX: Z20.822 Contact with and (suspected) exposure to COVID-19 (principal)
CPT/HCPCS: U0003; U0005

== ENCOUNTER → 2022-03-29 08:50 | Outpatient (CLI) | payer OTHER, SELFPAY ==
--- NOTE | 2022-03-29 08:54 | DI.RAD.S_ITS ---
PROCEDURE: XR KNEE LT 3V INDICATIONS: left kneecap trauma TECHNIQUE: 3 views of the knee were acquired. COMPARISON: None. FINDINGS: Bones: No acute fractures or dislocations. No suspicious bony lesions. Mild tricompartmental degenerative changes of the left knee. Soft tissues: No joint effusion. No suspicious soft tissue calcifications. Focal anterior left knee soft tissue swelling predominantly overlying the patella. Surgical clips of the medial lower leg are noted. IMPRESSION: Anterior left knee soft tissue swelling predominantly over the patella. This may represent possible prepatellar bursitis. Otherwise, no acute fracture or dislocation noted. If there is persistent clinical concern for occult fracture given adequate mechanism of injury, consider repeat imaging in 10-14 days. Dictated by: Lit Bartlett M.D. on 03/29/2022 at 11:05 Approved by: Lit Bartlett M.D. on 03/29/2022 at 11:07
[2022-03-29 11:11] LABS: Hemoglobin A1C% w Est Avg Glu 8.9 % (4.0-6.0)
[2022-03-29 11:21] LABS: Cholesterol 118 mg/dL (140-199); Glucose 91 mg/dL (80-110); HDL Cholesterol 37 mg/dL (40-60); LDL Cholesterol Calculated 50 mg/dL (<100); Triglycerides 156 mg/dL (35-150)
[2022-03-29 11:48] LABS: TSH w/ Reflex to FT4 8.96 uIU/mL (0.47-4.68)
[2022-03-29 12:30] LABS: Free T4, Direct Thyroxine 1.24 ng/dL (0.78-2.19)
== END ==
PROVIDERS: PCP Internal Medicine; Referring Provider Internal Medicine; Visit Provider Internal Medicine
DX: M25.562 Pain in left knee (principal); I10 Essential (primary) hypertension; R80.9 Proteinuria, unspecified; E78.5 Hyperlipidemia, unspecified; E03.9 Hypothyroidism, unspecified; E11.21 Type 2 diabetes mellitus with diabetic nephropathy; E78.2 Mixed hyperlipidemia
CPT/HCPCS: 36415; 73562; 80061; 82947; 83036; 84439; 84443

== ENCOUNTER → 2022-03-29 08:57 | Outpatient (CLI) | payer OTHER, SELFPAY | PROVIDERS: PCP Internal Medicine; Referring Provider Internal Medicine; Visit Provider Internal Medicine | DX: M25.562 Pain in left knee (principal) ==

== ENCOUNTER → 2022-04-30 14:58 | Outpatient (CLI) | payer OTHER, SELFPAY ==
--- NOTE | 2022-04-30 15:00 | DI.RAD.S_ITS ---
PROCEDURE: XR HIP W PEL IF DONE RT 2V INDICATIONS: right hip pain TECHNIQUE: AP pelvis with lateral view(s) of the right hip(s). COMPARISON: None. FINDINGS: Bones: No fractures or dislocations. Pelvic ring appears intact. No suspicious bony lesions. There is mild bilateral hip joint space narrowing. Soft tissues: The visualized bowel gas pattern is normal. No suspicious soft tissue calcifications. IMPRESSION: Mild bilateral hip osteoarthritis. Dictated by: Alice Brown M.D. on 04/30/2022 at 17:36 Approved by: Alice Brown M.D. on 04/30/2022 at 17:37
== END ==
PROVIDERS: PCP Internal Medicine; Referring Provider Internal Medicine; Visit Provider Internal Medicine
DX: M16.0 Bilateral primary osteoarthritis of hip (principal)
CPT/HCPCS: 73502

== ENCOUNTER → 2022-07-09 09:48 | Outpatient (CLI) | payer OTHER, SELFPAY ==
[2022-07-09 10:45] LABS: Hemoglobin 15.3 g/dL (13.5-17.5)
[2022-07-09 11:09] LABS: BUN Creatinine Ratio 21.4 (6-22); Blood Urea Nitrogen 24 mg/dL (9-20); Calcium 9.2 mg/dL (8.4-10.2); Carbon Dioxide 31 mmol/L (22-32); Chloride 99 mmol/L (98-107); Estimated Glomerular Filt Rate > 60 mL/min (>60); Glucose 169 mg/dL (80-110); HEMOLYSIS < 15 (0-50); Potassium 4.9 mmol/L (3.4-5.1); Sodium 138 mmol/L (137-145)
[2022-07-09 12:14] LABS: Creatinine Urine Random 86.3 mg/dL
[2022-07-09 12:26] LABS: Protein (Total) Urine Random 263 mg/dL (0-12); Protein Creatinine Ratio Urine 3.04 GRAM/24H
[2022-07-11 08:48] LABS: Parathyroid Hormone Int 41 pg/mL (15-65)
== END ==
PROVIDERS: PCP Internal Medicine; Referring Provider Student in an Organized Health Care Education/Training Program; Visit Provider Student in an Organized Health Care Education/Training Program
DX: N05.9 Unspecified nephritic syndrome with unspecified morphologic changes (principal); D64.9 Anemia, unspecified; N25.81 Secondary hyperparathyroidism of renal origin; R80.9 Proteinuria, unspecified
CPT/HCPCS: 36415; 80048; 82570; 83970; 84156; 85014; 85018

== ENCOUNTER → 2022-08-09 16:48 | Outpatient (CLI) | payer OTHER, SELFPAY ==
[2022-08-09 18:31] LABS: Hemoglobin A1C% w Est Avg Glu 9.8 % (4.0-6.0)
[2022-08-09 18:53] LABS: Prostate Specific Antigen Scrn 2.57 ng/mL (0.1-4.0)
[2022-08-09 18:55] LABS: TSH w/ Reflex to FT4 1.69 uIU/mL (0.47-4.68)
== END ==
PROVIDERS: PCP Internal Medicine; Referring Provider Internal Medicine; Visit Provider Internal Medicine
DX: E03.9 Hypothyroidism, unspecified (principal); E11.21 Type 2 diabetes mellitus with diabetic nephropathy; Z12.5 Encounter for screening for malignant neoplasm of prostate
CPT/HCPCS: 36415; 83036; 84443; G0103

== ENCOUNTER 2022-09-07 07:30 | Day surgery (SDC) | payer OTHER, SELFPAY ==
[2022-09-07 07:44] VITALS: BP 147/86; PULSE 75; RESP 16; TEMP 36.2; O2SAT 98; BMI 29.4
[2022-09-07] MEDS: LACTATED RINGERS 1,000 ML 42 ML IV (08:21)
[2022-09-07 08:22] VITALS: BMI 29.4
--- NOTE | 2022-09-07 08:50 | PM.HP.1 ---
History of Present Illness History of Present Illness Date Patient Seen: 09/07/22 Time Patient Seen: 08:51 Chief complaint: SDC Narrative: H/O polyps Patient History Medical History Acquired hypothyroidism Cerebrovascular disease Chronic back pain Chronic insomnia Coronary artery disease CVA (cerebral vascular accident) Diabetes mellitus with insulin therapy Encounter for general adult medical examination without abnormal findings Essential hypertension Gout Hearing loss History of colonic polyps Hypertension IgA nephropathy Kidney stones Mixed hyperlipidemia Osteoarthritis of right hip Primary osteoarthritis involving multiple joints Stage 3a chronic kidney disease (CKD) Thyroid cancer Type 2 diabetes mellitus with nephropathy Vision disorder Surgical History Anesthesia History of cholecystectomy (~10/2021) History of thyroidectomy Hx of CABG (~07/2021) S/P TURP (~2014) Family & Social History Family History Father Diabetes mellitus History of heart disease Hypertension Hyperlipidemia Mother Stroke Social History: household members spouse Tobacco & Substance use: Smoking Status Never smoker alcohol intake frequency holiday/special occasion Substance Use Type does not use Meds Home Medications and Allergies Home Medications Medication Instructions Recorded Confirmed Type aspirin 81 mg tablet,delayed 81 mg PO DAILY ##0 06/23/08 09/07/22 History release allopurinol 100 mg tablet 100 mg PO DAILY 07/16/18 09/07/22 History hydrochlorothiazide 25 mg tablet 25 mg PO DAILY 05/04/19 09/07/22 History metformin 500 mg tablet 500 mg PO BID #120 tabs 11/10/21 09/07/22 Rx lancets 33 gauge (OneTouch Delica #100 ea 12/20/21 08/08/22 History Plus Lancet) blood sugar diagnostic (OneTouch #300 ea 12/25/21 08/08/22 Rx Verio test strips) levothyroxine 112 mcg tablet 224 mcg PO DAILY #180 tabs 02/14/22 09/07/22 Rx pen needle, diabetic 31 gauge x #100 ea 03/15/22 08/08/22 Rx 1/4 (TRUEplus Pen Needle) metoprolol succinate 50 mg 50 mg PO BID 03/29/22 09/07/22 History tablet,extended release 24 hr sodium zirconium cyclosilicate 5 5 g PO DAILY 03/29/22 09/07/22 History gram oral powder packet (Lokelma) losartan 25 mg tablet 50 mg PO DAILY #180 tabs 04/06/22 09/07/22 Rx duloxetine 20 mg capsule,delayed 40 mg PO DAILY #180 caps 04/30/22 09/07/22 Rx release rosuvastatin 40 mg tablet 40 mg PO DAILY #90 tabs 04/30/22 09/07/22 Rx trazodone 50 mg tablet See Rx Instructions PO BEDTIME PRN 07/16/22 09/07/22 Rx sleep #90 tabs clopidogrel 75 mg tablet 75 mg PO DAILY #90 tabs 07/27/22 09/07/22 Rx albuterol sulfate 90 mcg/actuation 2 puff inhalation Q6H PRN 08/08/22 09/07/22 Rx aerosol inhaler shortness of breath or wheezing #8.5 grams fluticasone propionate 250 1 inh inhalation BID #60 ea 08/08/22 09/07/22 Rx mcg/actuation blister powder for inhalation (Flovent Diskus) hydrocodone 5 mg-acetaminophen 325 1 tab PO Q6H PRN pain #30 tabs 08/08/22 09/07/22 Rx mg tablet insulin aspart U-100 100 unit/mL 10 unit SUBCUT AC 09/07/22 09/07/22 History (3 mL) subcutaneous pen insulin glargine 100 unit/mL (3 30 unit SUBCUT BID 09/07/22 09/07/22 History mL) subcutaneous pen (Lantus Solostar U-100 Insulin) Allergies Allergy/AdvReac Type Severity Reaction Status Date / Time HAKAN Inhibitors AdvReac Intermediate Verified 09/07/22 07:37 [HAKAN INHIBITORS] simvastatin [SIMVASTATIN] AdvReac Intermediate muscle Verified 09/07/22 07:37 aches, upset stomach Review of Systems Review of Systems ROS: Yes All systems reviewed with the patient and are negative except as otherwise documented Exam Vital Signs (past 8 hours): - 09/07/22 07:44 Temperature 97.2 F L Pulse Rate 75 Respiratory Rate 16 Blood Pressure 147/86 H Pulse Oximetry 98 Oxygen Delivery Method Room Air Oxygen Delivery Method Room Air Const General: cooperative and comfortable HENMT Head: normal to inspection, normocephalic and atraumatic Eyes General: appearance normal, both eyes and all related structures Neck Neck: trachea midline Chest Chest: normal inspection of the chest Resp Effort & Inspection: normal respiratory effort and able to speak in complete sentences Cardio Rate: regular rate Rhythm: regular rhythm GI Inspection: normal to inspection Palpation: soft Skin General: elasticity normal Neuro General: patient alert, patient awake and patient oriented x3 Extrem General: normal to inspection Psych Appearance: grossly normal Judgment: judgment good Assessment & Plan Assessment & Plan narrative: H/o colon polps Plan: Colonoscopy with MAC Time Spent With Patient Time with patient: less than 30 minutes Critical Care time: I spent a total of [] minutes of critical care time on this patient's care today; this time is exclusive of procedural time.
--- NOTE | 2022-09-07 08:53 | PM.OP.COLON ---
Operative Date/Time/Diagnoses Date of procedure: 09/07/22 Time of procedure: 08:54 Pre-op diagnosis: H/o colon polyps Post-op diagnosis: same Procedure & Clinicians Study performed: colonoscopy Same procedure as scheduled: Yes Indications: History of colon polyps Surgeon: Marjorie Michaud Procedure Notes Procedure in detail: Preop diagnosis: History of colon polyps Postop diagnosis: Same Operative procedure: Colonoscopy with MAC Surgeon: Irma Michaud MD Findings: Sigmoid diverticulosis medium to large. No polyps identified. Procedure: Patient placed in lateral position. Rectal exam performed showing normal tone no masses. Colonoscope inserted into the rectum and advanced to ileocecal valve with minimal difficulty. Insufflation extraction of the scope and the above findings. Retroflex was included in the rectum Impression: Sigmoid diverticulosis, no polyps Plan: Repeat colonoscopy in 10 years unless otherwise indicated by change in clinical condition Findings: divertiulosis Specimen(s): none sent Complications: none Post-procedure Recommendations: Colonoscopy in 10 years Follow up: as needed Disposition: PACU
[2022-09-07 09:16] VITALS: BP 106/66; PULSE 58; RESP 18; TEMP 36.1; O2SAT 97
[2022-09-07 09:19] VITALS: BP 94/63; PULSE 58; RESP 17; O2SAT 95
[2022-09-07 09:29] VITALS: BP 113/70; PULSE 53; RESP 12; O2SAT 98
== END 2022-09-07 09:44 | disposition home or self-care (01) ==
PROVIDERS: PCP Internal Medicine; Referring Provider Surgery; Visit Provider Surgery
PROC: 0DJD8ZZ Inspection of Lower Intestinal Tract, Via Natural or Artificial Opening Endoscopic (ICD-10-PCS; CPT 45378; principal; 2022-09-07 08:30)
DX: Z12.11 Encounter for screening for malignant neoplasm of colon (principal); Z86.010 Personal history of colon polyps; K57.30 Diverticulosis of large intestine without perforation or abscess without bleeding
CPT/HCPCS: 45378; J2704

== ENCOUNTER → 2022-11-26 07:25 | Outpatient (CLI) | payer OTHER, SELFPAY ==
[2022-11-26 08:56] LABS: BUN Creatinine Ratio 22.3 (6-22); Blood Urea Nitrogen 31 mg/dL (9-20); Calcium 8.9 mg/dL (8.4-10.2); Carbon Dioxide 31 mmol/L (22-32); Chloride 99 mmol/L (98-107); Estimated Glomerular Filt Rate 57 mL/min (>60); Glucose 141 mg/dL (80-110); HEMOLYSIS < 15 (0-50); Potassium 4.6 mmol/L (3.4-5.1); Sodium 137 mmol/L (137-145)
[2022-11-26 09:16] LABS: Creatinine Urine Random 87.1 mg/dL; Protein (Total) Urine Random 167 mg/dL (0-12); Protein Creatinine Ratio Urine 1.91 GRAM/24H
== END ==
PROVIDERS: PCP Internal Medicine; Referring Provider Student in an Organized Health Care Education/Training Program; Visit Provider Student in an Organized Health Care Education/Training Program
DX: N05.9 Unspecified nephritic syndrome with unspecified morphologic changes (principal); R80.9 Proteinuria, unspecified
CPT/HCPCS: 36415; 80048; 82570; 84156

== ENCOUNTER → 2023-04-08 08:31 | Outpatient (CLI) | payer OTHER, SELFPAY ==
[2023-04-08 10:16] LABS: Hematocrit 42.3 % (41-53); Hemoglobin 14.3 g/dL (13.5-17.5)
[2023-04-08 10:43] LABS: BUN Creatinine Ratio 25.9 (6-22); Blood Urea Nitrogen 38 mg/dL (9-20); Calcium 9.2 mg/dL (8.4-10.2); Carbon Dioxide 27 mmol/L (22-32); Chloride 102 mmol/L (98-107); Estimated Glomerular Filt Rate 53 mL/min (>60); Glucose 147 mg/dL (80-110); HEMOLYSIS < 15 (0-50); Potassium 4.8 mmol/L (3.4-5.1); Sodium 137 mmol/L (137-145)
[2023-04-08 12:00] LABS: Creatinine Urine Random 107.4 mg/dL
[2023-04-08 13:12] LABS: Microalbumi Creatinin Ratio Ur 789.5 ug/mg CR (<30); Microalbumin Urine Random 84.8 mg/dL (0-1.6)
[2023-04-09 11:21] LABS: Creatinine Urine Random 109.8 mg/dL; Protein (Total) Urine Random 132 mg/dL (0-12)
[2023-04-10 06:36] LABS: Parathyroid Hormone Int 45 pg/mL (15-65)
== END ==
PROVIDERS: PCP Internal Medicine; Referring Provider Student in an Organized Health Care Education/Training Program; Visit Provider Student in an Organized Health Care Education/Training Program
DX: N05.9 Unspecified nephritic syndrome with unspecified morphologic changes (principal); D64.9 Anemia, unspecified; N25.81 Secondary hyperparathyroidism of renal origin; R80.9 Proteinuria, unspecified; E11.9 Type 2 diabetes mellitus without complications; I10 Essential (primary) hypertension; N18.31 Chronic kidney disease, stage 3a; Z79.4 Long term (current) use of insulin
CPT/HCPCS: 36415; 80048; 82043; 82570; 83970; 84156; 85014; 85018

== ENCOUNTER → 2023-05-18 08:59 | Outpatient (CLI) | payer OTHER, SELFPAY ==
[2023-05-18 10:25] LABS: Hemoglobin A1C% w Est Avg Glu 8.1 % (4.0-6.0)
[2023-05-18 10:28] LABS: BUN Creatinine Ratio 23.5 (6-22); Blood Urea Nitrogen 32 mg/dL (9-20); Calcium 9.8 mg/dL (8.4-10.2); Carbon Dioxide 30 mmol/L (22-32); Chloride 101 mmol/L (98-107); Cholesterol 155 mg/dL (140-199); Estimated Glomerular Filt Rate 58 mL/min (>60); Glucose 177 mg/dL (80-110); HDL Cholesterol 45 mg/dL (40-60); HEMOLYSIS < 15 (0-50); LDL Cholesterol Calculated 70 mg/dL (<100); Potassium 5.2 mmol/L (3.4-5.1); Sodium 137 mmol/L (137-145); Triglycerides 198 mg/dL (35-150)
[2023-05-18 10:52] LABS: TSH w/ Reflex to FT4 0.67 uIU/mL (0.47-4.68)
== END ==
PROVIDERS: PCP Internal Medicine; Referring Provider Internal Medicine; Visit Provider Internal Medicine
DX: E78.2 Mixed hyperlipidemia (principal); E03.9 Hypothyroidism, unspecified; N18.31 Chronic kidney disease, stage 3a; E11.21 Type 2 diabetes mellitus with diabetic nephropathy
CPT/HCPCS: 36415; 80048; 80061; 83036; 84443

== ENCOUNTER → 2023-05-27 07:38 | Outpatient (CLI) | payer OTHER, SELFPAY ==
[2023-05-27 08:49] LABS: BUN Creatinine Ratio 20.8 (6-22); Blood Urea Nitrogen 36 mg/dL (9-20); Calcium 9.9 mg/dL (8.4-10.2); Carbon Dioxide 29 mmol/L (22-32); Chloride 96 mmol/L (98-107); Estimated Glomerular Filt Rate 44 mL/min (>60); Glucose 240 mg/dL (80-110); HEMOLYSIS < 15 (0-50); Potassium 4.8 mmol/L (3.4-5.1); Sodium 134 mmol/L (137-145)
[2023-05-27 16:32] LABS: Creatinine Urine Random 92.1 mg/dL; Protein (Total) Urine Random 124 mg/dL (0-12); Protein Creatinine Ratio Urine 1.34 GRAM/24H
== END ==
PROVIDERS: PCP Internal Medicine; Referring Provider Student in an Organized Health Care Education/Training Program; Visit Provider Student in an Organized Health Care Education/Training Program
DX: N05.9 Unspecified nephritic syndrome with unspecified morphologic changes (principal); R80.9 Proteinuria, unspecified
CPT/HCPCS: 36415; 80048; 82570; 84156

== ENCOUNTER → 2023-07-06 09:43 | Outpatient (CLI) | payer OTHER, SELFPAY ==
[2023-07-06 10:30] LABS: BUN Creatinine Ratio 27.3 (6-22); Blood Urea Nitrogen 38 mg/dL (9-20); Calcium 9.9 mg/dL (8.4-10.2); Carbon Dioxide 31 mmol/L (22-32); Chloride 101 mmol/L (98-107); Estimated Glomerular Filt Rate 57 mL/min (>60); Glucose 226 mg/dL (80-110); HEMOLYSIS < 15 (0-50); Potassium 4.9 mmol/L (3.4-5.1); Sodium 138 mmol/L (137-145)
[2023-07-06 11:54] LABS: Creatinine Urine Random 161.4 mg/dL
[2023-07-06 12:04] LABS: Protein Creatinine Ratio Urine 2.93 GRAM/24H
[2023-07-06 12:05] LABS: Protein (Total) Urine Random 473 mg/dL (0-12)
== END ==
PROVIDERS: PCP Internal Medicine; Referring Provider Student in an Organized Health Care Education/Training Program; Visit Provider Student in an Organized Health Care Education/Training Program
DX: N05.9 Unspecified nephritic syndrome with unspecified morphologic changes (principal); R80.9 Proteinuria, unspecified
CPT/HCPCS: 36415; 80048; 82570; 84156

== ENCOUNTER → 2023-09-16 08:45 | Outpatient (CLI) | payer OTHER, SELFPAY ==
[2023-09-16 09:24] LABS: Hemoglobin A1C% w Est Avg Glu 8.4 % (4.0-6.0)
[2023-09-16 09:37] LABS: BUN Creatinine Ratio 20.5 (6-22); Blood Urea Nitrogen 27 mg/dL (9-20); Calcium 9.5 mg/dL (8.4-10.2); Carbon Dioxide 28 mmol/L (22-32); Chloride 101 mmol/L (98-107); Estimated Glomerular Filt Rate > 60 mL/min (>60); Glucose 160 mg/dL (80-110); HEMOLYSIS < 15 (0-50); Potassium 4.5 mmol/L (3.4-5.1); Sodium 139 mmol/L (137-145)
== END ==
PROVIDERS: PCP Internal Medicine; Referring Provider Internal Medicine; Visit Provider Internal Medicine
DX: N18.31 Chronic kidney disease, stage 3a (principal); E11.21 Type 2 diabetes mellitus with diabetic nephropathy
CPT/HCPCS: 36415; 80048; 83036

== ENCOUNTER → 2023-09-21 09:39 | Outpatient (CLI) | payer OTHER, SELFPAY ==
[2023-09-21 10:44] LABS: Hematocrit 42.8 % (41-53); Hemoglobin 14.6 g/dL (13.5-17.5)
[2023-09-21 10:55] LABS: BUN Creatinine Ratio 21.2 (6-22); Blood Urea Nitrogen 25 mg/dL (9-20); Calcium 9.3 mg/dL (8.4-10.2); Carbon Dioxide 29 mmol/L (22-32); Chloride 101 mmol/L (98-107); Estimated Glomerular Filt Rate > 60 mL/min (>60); Glucose 195 mg/dL (80-110); HEMOLYSIS < 15 (0-50); Sodium 137 mmol/L (137-145)
[2023-09-21 11:01] LABS: Potassium 5.8 mmol/L (3.4-5.1)
[2023-09-21 11:06] LABS: Creatinine Urine Random 90.3 mg/dL
[2023-09-21 11:12] LABS: Protein (Total) Urine Random 245 mg/dL (0-12); Protein Creatinine Ratio Urine 2.71 GRAM/24H
[2023-09-24 08:53] LABS: Parathyroid Hormone Int 47 pg/mL (15-65)
== END ==
PROVIDERS: PCP Internal Medicine; Referring Provider Student in an Organized Health Care Education/Training Program; Visit Provider Student in an Organized Health Care Education/Training Program
DX: N05.9 Unspecified nephritic syndrome with unspecified morphologic changes (principal); D70.9 Neutropenia, unspecified; D63.1 Anemia in chronic kidney disease; R80.9 Proteinuria, unspecified; N25.81 Secondary hyperparathyroidism of renal origin
CPT/HCPCS: 36415; 80048; 82570; 83970; 84156; 85014; 85018

== ENCOUNTER → 2023-09-27 14:10 | Outpatient (CLI) | payer OTHER, SELFPAY ==
[2023-09-27 15:49] LABS: HEMOLYSIS < 15 (0-50); Potassium 4.8 mmol/L (3.4-5.1)
== END ==
PROVIDERS: PCP Internal Medicine; Referring Provider Student in an Organized Health Care Education/Training Program; Visit Provider Student in an Organized Health Care Education/Training Program
DX: E87.5 Hyperkalemia (principal)
CPT/HCPCS: 36415; 84132

== ENCOUNTER → 2023-11-02 08:10 | Outpatient (CLI) | payer OTHER, SELFPAY ==
[2023-11-02 12:14] LABS: Hematocrit 42.2 % (41-53); Hemoglobin 14.4 g/dL (13.5-17.5)
[2023-11-02 12:45] LABS: Blood Urea Nitrogen 33 mg/dL (9-20); Calcium 9.1 mg/dL (8.4-10.2); Carbon Dioxide 31 mmol/L (22-32); Chloride 102 mmol/L (98-107); Estimated Glomerular Filt Rate > 60 mL/min (>60); Glucose 258 mg/dL (80-110); HEMOLYSIS < 15 (0-50); Potassium 4.8 mmol/L (3.4-5.1); Sodium 136 mmol/L (137-145)
[2023-11-02 14:29] LABS: Creatinine Urine Random 58.6 mg/dL; Protein (Total) Urine Random 145 mg/dL (0-12); Protein Creatinine Ratio Urine 2.47 GRAM/24H
[2023-11-05 09:36] LABS: Parathyroid Hormone Int 45 pg/mL (15-65)
== END ==
PROVIDERS: PCP Internal Medicine; Referring Provider Student in an Organized Health Care Education/Training Program; Visit Provider Student in an Organized Health Care Education/Training Program
DX: N05.9 Unspecified nephritic syndrome with unspecified morphologic changes (principal); D70.9 Neutropenia, unspecified; D63.1 Anemia in chronic kidney disease; N25.81 Secondary hyperparathyroidism of renal origin; R80.9 Proteinuria, unspecified
CPT/HCPCS: 36415; 80048; 82570; 83970; 84156; 85014; 85018

== ENCOUNTER → 2023-11-22 08:31 | Outpatient (CLI) | payer OTHER, SELFPAY ==
[2023-11-22 09:28] LABS: BUN Creatinine Ratio 20.3 (6-22); Blood Urea Nitrogen 27 mg/dL (9-20); Calcium 9.5 mg/dL (8.4-10.2); Carbon Dioxide 32 mmol/L (22-32); Chloride 104 mmol/L (98-107); Cholesterol 126 mg/dL (140-199); Estimated Glomerular Filt Rate 60 mL/min (>60); Glucose 152 mg/dL (80-110); HDL Cholesterol 41 mg/dL (40-60); HEMOLYSIS < 15 (0-50); LDL Cholesterol Calculated 49 mg/dL (<100); Potassium 4.6 mmol/L (3.4-5.1); Sodium 140 mmol/L (137-145); Triglycerides 178 mg/dL (35-150)
== END ==
PROVIDERS: PCP Internal Medicine; Referring Provider Nurse Practitioner Acute Care; Visit Provider Nurse Practitioner Acute Care
DX: E78.49 Other hyperlipidemia (principal); I10 Essential (primary) hypertension; I25.10 Atherosclerotic heart disease of native coronary artery without angina pectoris
CPT/HCPCS: 36415; 80048; 80061

== ENCOUNTER → 2024-03-13 13:42 | Outpatient (CLI) | payer OTHER, SELFPAY ==
[2024-03-13 15:02] LABS: BUN Creatinine Ratio 20.1 (6-22); Blood Urea Nitrogen 28 mg/dL (9-20); Calcium 9.4 mg/dL (8.4-10.2); Carbon Dioxide 26 mmol/L (22-32); Chloride 101 mmol/L (98-107); Estimated Glomerular Filt Rate 56 mL/min (>60); Glucose 214 mg/dL (80-110); HEMOLYSIS < 15 (0-50); Potassium 4.7 mmol/L (3.4-5.1); Sodium 136 mmol/L (137-145)
[2024-03-13 15:19] LABS: Creatinine Urine Random 110.42 mg/dL; Protein (Total) Urine Random 147 mg/dL (0-12); Protein Creatinine Ratio Urine 1.33 GRAM/24H
== END ==
PROVIDERS: PCP Internal Medicine; Referring Provider Student in an Organized Health Care Education/Training Program; Visit Provider Student in an Organized Health Care Education/Training Program
DX: N05.9 Unspecified nephritic syndrome with unspecified morphologic changes (principal); R80.9 Proteinuria, unspecified
CPT/HCPCS: 36415; 80048; 82570; 84156

== ENCOUNTER → 2024-04-13 15:55 | Outpatient (CLI) | payer OTHER, SELFPAY ==
[2024-04-13 17:24] LABS: Hematocrit 45.1 % (41-53); Hemoglobin 15.3 g/dL (13.5-17.5); Mean Corpuscular HGB Conc 33.8 % (30-36); Mean Corpuscular Hemoglobin 31.1 PG (26-34); Platelet Count 226 X10^3/uL (150-400); Red Blood Cell Count 4.91 X10^6/uL (4.5-5.9); Red Cell Distribution Width 13.1 % (11.6-14.8); White Blood Cell Count 5.8 X10^3/uL (4.5-11.0)
[2024-04-13 17:40] LABS: Hemoglobin A1C% w Est Avg Glu 8.8 % (4.0-6.0)
[2024-04-13 17:43] LABS: BUN Creatinine Ratio 23.3 (6-22); Blood Urea Nitrogen 35 mg/dL (9-20); Calcium 9.4 mg/dL (8.4-10.2); Carbon Dioxide 29 mmol/L (22-32); Chloride 99 mmol/L (98-107); Cholesterol 207 mg/dL (140-199); Estimated Glomerular Filt Rate 51 mL/min (>60); Glucose 237 mg/dL (80-110); HDL Cholesterol 37 mg/dL (40-60); HEMOLYSIS < 15 (0-50); Potassium 4.1 mmol/L (3.4-5.1); Sodium 134 mmol/L (137-145); Triglycerides 501 mg/dL (35-150)
[2024-04-13 18:20] LABS: TSH w/ Reflex to FT4 1.63 uIU/mL (0.47-4.68)
== END ==
PROVIDERS: PCP Internal Medicine; Referring Provider Internal Medicine; Visit Provider Internal Medicine
DX: E11.3293 Type 2 diabetes mellitus with mild nonproliferative diabetic retinopathy without macular edema, bilateral (principal); E03.9 Hypothyroidism, unspecified; E78.2 Mixed hyperlipidemia
CPT/HCPCS: 36415; 80048; 80061; 83036; 84443; 85027

== ENCOUNTER → 2024-06-09 13:03 | Outpatient (CLI) | payer OTHER, SELFPAY ==
--- NOTE | 2024-07-14 08:41 | DIAB.MNT ---
Initial Diabetes Medical Nutrition Therapy Assessment Name: Poncho Navarro Date: 06/09/24 Time: 105-205p Dx: Type II Diabetes Poncho presents for initial visit with , Breonna. PMH of diagnosis about 10 years ago. Reports FH of DM with father. States it has been harder to manage his blood sugars recently. Reports fasting three days last month and still had elevated BG. Started insulin in 2021. Thinks he is experiencing sherif phenomenon. With lows: shaky. Treats with candy, hard candy, mini candy canes. Often skips insulin at mealtime. Forgets injections at times. h/o elevated potassium. Questions regarding nutrition. Diet Recall: 630a coffee 10a: rice crackers x 3-4 12p: veggie soup with potatoes and beans and veggies, 10 rice crackers and 5oz yogurt sn: nothing or veggies or apple 530p: protein and 1.5c rice or 1c potatoes grazing in the evening: chips, emma raisins, rice crackers, ww bread thin with honey water 40-60oz, crystal light, diet soda digestion: diarrhea all the time Anthropometrics: Ht: 6' Wt: 293# 03/2024 Physical Activity: active with job, sometimes walks the dog Self-Monitoring Blood Glucose: Uses FSL but no hardware trainer for upload today. 197mg/dl FBG today. Reports often lows around 2p, at least 2x per week if takin ginsulin regularly. May take insulin 30 mins after start of meal. Diabetes Medications: 28u Lantus BID 4-12u Aspart TID 500mg Metformin BID Pertinent Labs: HgA1c: 8.8% 03/2024 Past Medical History: (Last Updated 07/13/24 @ 14:30 by Mike Correa MD) Acquired hypothyroidism Cerebrovascular disease Chronic back pain Chronic diarrhea Chronic insomnia Coronary artery disease Depression, major, recurrent Diabetes mellitus with insulin therapy Essential hypertension Gout Hearing loss Loud work environment/gradual loss History of colonic polyps History of thyroid cancer Hypertension IgA nephropathy Kidney stones Mixed hyperlipidemia Osteoarthritis of right hip Primary osteoarthritis involving multiple joints Stage 3a chronic kidney disease (CKD) Type 2 diabetes mellitus with mild nonproliferative diabetic retinopathy without macular edema, 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 Provided appropriate educational handouts. Discussed the following topics: Completed intake assessment. Discussed barriers to care. Pathophysiology of T2DM HgA1c, its correlation to blood glucose numbers, and rationale for goal Self monitoring BG and FSL hardware trainer Foods high in potassium Recommended servings for carbohydrates at meals and snacks Brainstormed appropriate meal/snack ideas based on food preferences Role of physical activity and following provider guidelines for safety POtential for SGLt2i or insulin pump Created SMART goals for patient self-care and success. Goals: Take insulin pre meal Move long acting insulin to be with pills to help with memory BID Set HS snack time Bring FSL hardware trainer Follow-up: BRO SANDOVAL follow-up in 3-4 weeks Elissa Barbour RDN, JAIME Certified Diabetes Care and Blue Leather Setter P: [phone] Thank you for this referral
== END ==
PROVIDERS: PCP Internal Medicine; Referring Provider Internal Medicine
DX: E11.3293 Type 2 diabetes mellitus with mild nonproliferative diabetic retinopathy without macular edema, bilateral (principal); Z79.84 Long term (current) use of oral hypoglycemic drugs; Z79.4 Long term (current) use of insulin
CPT/HCPCS: 97802

== ENCOUNTER → 2024-06-30 10:53 | Outpatient (CLI) | payer OTHER, SELFPAY ==
--- NOTE | 2024-08-04 17:44 | DIAB.FU ---
Follow-up Diabetes Education Assessment Name: Poncho Navarro Date: 06/30/24 Time: [id number] Dx: Type II Diabetes Poncho presents for follow-up visit with , Breonna. PMH of diagnosis about 10 years ago. Reports FH of DM with father. Reports everyday pressure in head. Diarrhea daily for unknown etiology x3 years. metformin on and off for years. Takes with food. Interested in Dexcom sample next visit. Has FSL2 but misses swipes so missing data. Sees PCP in Jun. Missing insulin doses at meals at times per report. Trying to reduce white flour intake. Would like to try Jardiance. Req C peptide for more info on pump options in thefuture. Anthropometrics: Ht: 6' Wt: 293# 03/2024 Physical Activity: active with job, sometimes walks the dog Self-Monitoring Blood Glucose: Uses FSL2 but often missing swipes. Limited CGM data. Diabetes Medications: 28u Lantus BID 8-12u Aspart TID 500mg Metformin BID Pertinent Labs: HgA1c: 8.8% 03/2024 Past Medical History: (Last Updated 07/13/24 @ 14:30 by Mike Correa MD) Acquired hypothyroidism Cerebrovascular disease Chronic back pain Chronic diarrhea Chronic insomnia Coronary artery disease Depression, major, recurrent Diabetes mellitus with insulin therapy Essential hypertension Gout Hearing loss Loud work environment/gradual loss History of colonic polyps History of thyroid cancer Hypertension IgA nephropathy Kidney stones Mixed hyperlipidemia Osteoarthritis of right hip Primary osteoarthritis involving multiple joints Stage 3a chronic kidney disease (CKD) Type 2 diabetes mellitus with mild nonproliferative diabetic retinopathy without macular edema, 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 Provided appropriate educational handouts. Discussed the following topics: Medication options INsulin pump options and c peptide lab CGM types and differences Mealtime insullin recs Created SMART goals for patient self-care and success. Goals: Take insulin pre meal- in progress Move long acting insulin to be with pills to help with memory BID- met Set HS snack time- in progress Bring FSL insole stiffener - met Follow-up: BRO SANDOVAL follow-up in 3-4 weeks Elissa Barbour RDN, JAIME Certified Diabetes Care and Online Marketing Specialist P: [phone] Thank you for this referral
== END ==
PROVIDERS: PCP Internal Medicine; Referring Provider Internal Medicine
DX: E11.3293 Type 2 diabetes mellitus with mild nonproliferative diabetic retinopathy without macular edema, bilateral (principal); Z71.3 Dietary counseling and surveillance; Z79.84 Long term (current) use of oral hypoglycemic drugs; Z79.4 Long term (current) use of insulin
CPT/HCPCS: G0108

== ENCOUNTER → 2024-07-05 14:13 | Outpatient (CLI) | payer OTHER, SELFPAY ==
--- NOTE | 2024-07-05 14:14 | DI.MRI.S_ITS ---
PROCEDURE: MR ANKLE LT WO CON INDICATIONS: INSERTIONAL ACHILLES TENDINOPATHY TECHNIQUE: Noncontrast sagittal T1 spin echo and T2 fast spin echo with fat saturation, axial proton density fast spin echo and T2 fast spin echo with fat saturation, coronal T1 spin echo and T2 fast spin echo with fat saturation through the ankle/hindfoot. COMPARISON: [facility] [place], CR, XR ANKLE 3+ VIEWS LEFT, 06/23/2024, 8:36. FINDINGS: Image quality: Excellent. Bones and joints: Moderate tricompartmental osteoarthritis and chondromalacia is seen. Well-defined plantar and dorsal calcaneal enthesophytes are noted. No acute fracture or dislocation. No osteochondral injuries of talar dome. Marrow edema is seen involving inferior aspect of mid to distal talus and adjacent superior aspect of calcaneus weight-bearing portion likely represent Mild edema involving lateral periphery of lateral femoral condyle without discrete fracture line. Small amount of tibiotalar joint effusion, no loose bodies. Medial structures: The posterior tibialis, flexor digitorum longus, and flexor hallucis longus tendons are intact. Small amount of fluid distending flexor tendon sheath is seen at the level of mid to distal talus and talonavicular joint. The posterior tibial neurovascular bundle appears normal within the tarsal tunnel, without extrinsic mass effect. The deltoid ligament and spring ligament are intact. Lateral structures: The anterior talofibular ligament is thickened. The calcaneofibular, and posterior talofibular ligaments appear intact. More superiorly, the anterior and posterior tibiofibular ligaments appear intact, as is the intermalleolar ligament. The tibiofibular syndesmosis is normal in width at 2 mm or less. Mildly thickened peroneus longus and brevis tendons at the level of lateral malleolus with small amount of fluid distending tendon sheath. No signal abnormality is noted within the sinus tarsi. Anterior structures: The tibialis anterior, extensor hallucis longus, and extensor digitorum longus tendons appear intact. The dorsal talonavicular ligament appears intact. Posterior and plantar structures: There is diffuse thickening involving distal 7.2 cm segment of Achilles tendon extending to its posterior calcaneal insertion and measures up to 2.6 x 1.2 cm in largest transverse and AP dimensions with intrasubstance T2 hyperintense signal. Fluid and edema in pre Achilles fat is also seen. Mildly thickened medial band of plantar fascia at its plantar calcaneal enthesophyte is also noted. No abductor digiti quinti muscle atrophy to suggest Noble neuropathy. IMPRESSION: 1. Low to moderate grade intrasubstance partial-thickness tear involving distal 7 cm segment of Achilles tendon extending to its posterior calcaneal insertion. Well-defined dorsal calcaneal enthesophyte. No full-thickness Achilles tendon rupture. Inflammatory changes involving pre Achilles fat. 2. Well-defined plantar calcaneal enthesophyte and thickened medial band of plantar fascia suggestive of low-grade plantar fasciitis. 3. Moderate midfoot and hindfoot joint osteoarthritis. No fracture or dislocation. Osteochondral injuries involving inferior weight-bearing portion of mid to distal talus and adjacent superior aspect of calcaneus adjacent to subtalar joint. No osteochondral injuries of talar dome. No acute fracture or dislocation. Small joint effusion, no loose bodies. 4. Low-grade tenosynovitis involving flexor tendons and peroneus tendons as above. 5. Medial ankle ligaments are intact. Low-grade ATFL sprain. Dictated by: Aleksandr Aiken M.D. on 07/06/2024 at 13:08 Approved by: Aleksandr Aiken M.D. on 07/06/2024 at 13:16
== END ==
PROVIDERS: PCP Internal Medicine; Referring Provider Orthopaedic Surgery Foot and Ankle Surgery; Visit Provider Orthopaedic Surgery Foot and Ankle Surgery
DX: S86.012A Strain of left Achilles tendon, initial encounter (principal); S93.492A Sprain of other ligament of left ankle, initial encounter; M76.60 Achilles tendinitis, unspecified leg; M19.072 Primary osteoarthritis, left ankle and foot; M94.272 Chondromalacia, left ankle and joints of left foot; M77.32 Calcaneal spur, left foot; M65.972 Unspecified synovitis and tenosynovitis, left ankle and foot; M25.472 Effusion, left ankle
CPT/HCPCS: 73721

== ENCOUNTER → 2024-07-13 14:45 | Outpatient (CLI) | payer OTHER, SELFPAY ==
[2024-07-13 15:14] LABS: Hemoglobin A1C% w Est Avg Glu 8.7 % (4.0-6.0)
[2024-07-13 15:46] LABS: BUN Creatinine Ratio 19.9 (6-22); Blood Urea Nitrogen 42 mg/dL (9-20); Calcium 9.2 mg/dL (8.4-10.2); Carbon Dioxide 28 mmol/L (22-32); Chloride 98 mmol/L (98-107); Estimated Glomerular Filt Rate 34 mL/min (>60); Glucose 293 mg/dL (80-110); HEMOLYSIS < 15 (0-50); Sodium 134 mmol/L (137-145)
[2024-07-14 07:36] LABS: C Peptide 9.8 ng/mL (1.1-4.4)
== END ==
PROVIDERS: PCP Internal Medicine; Referring Provider Internal Medicine; Visit Provider Internal Medicine
DX: E11.3293 Type 2 diabetes mellitus with mild nonproliferative diabetic retinopathy without macular edema, bilateral (principal); N18.31 Chronic kidney disease, stage 3a
CPT/HCPCS: 36415; 80048; 83036; 84681

== ENCOUNTER → 2024-07-14 12:32 | Outpatient (CLI) | payer OTHER, SELFPAY ==
[2024-07-16 12:14] LABS: C difficie Toxins A and B, EIA Negative (Negative)
== END ==
PROVIDERS: PCP Internal Medicine; Referring Provider Internal Medicine; Visit Provider Internal Medicine
DX: K52.9 Noninfective gastroenteritis and colitis, unspecified (principal)
CPT/HCPCS: 87324

== ENCOUNTER → 2024-07-31 15:54 | Outpatient (CLI) | payer OTHER, SELFPAY ==
--- NOTE | 2024-08-28 08:20 | DIAB.MNTFU ---
Follow-up Diabetes Medical Nutrition Therapy Assessment Name: Poncho Navarro Date: 07/31/24 Time: 4-510p Dx: Type II Diabetes Poncho presents for follow-up visit with , Breonna. PMH of diagnosis about 10 years ago. Reports FH of DM with father. Less snacking or grazing in the evening. Low BG today under 70mg/dl Treated with candy canes Interested in Dexcom G7 next visit. Currently needing to swipe for BG with FSL2. Diet recall: 630a: water 10a: 3-4 selma cookies or rice crackers 12p: yogurt 25g CHO with chicken tenders and 1.5c ham and veg soup with some beans/corn, celery with Clarence butter 4p: bowl of chips 530p: protein and veggies 7p: 2c chips or yogurt FSL2 costing $221 for 3 month supply. Metformin changed to ER with less freq diarrhea, loose stool Jardiance too expensive. Anthropometrics: Ht: 6' Wt: 293# 03/2024 Physical Activity: active with job, sometimes walks the dog Self-Monitoring Blood Glucose: Uses FSL2, more swipes this visit. TIR: from central processing technician 37% very high 56% high 7% in range 0% low or very low avmg/dl 17.9 variance Diabetes Medications: 28u Lantus BID 15u Aspart TID 500mg Metformin ER BID Pertinent Labs: HgA1c: 8.8% 03/2024 8.7% 06/2024 cpeptide 9.8 H GFR: 34 Cr 2.11 H Past Medical History: (Last Updated 07/13/24 @ 14:30 by Mike Correa MD) Acquired hypothyroidism Cerebrovascular disease Chronic back pain Chronic diarrhea Chronic insomnia Coronary artery disease Depression, major, recurrent Diabetes mellitus with insulin therapy Essential hypertension Gout Hearing loss Loud work environment/gradual loss History of colonic polyps History of thyroid cancer Hypertension IgA nephropathy Kidney stones Mixed hyperlipidemia Osteoarthritis of right hip Primary osteoarthritis involving multiple joints Stage 3a chronic kidney disease (CKD) Type 2 diabetes mellitus with mild nonproliferative diabetic retinopathy without macular edema, 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 Provided appropriate educational handouts. Discussed the following topics: how to add more veggies to the day Balancing protein with carbs and CKD Carb portion recs Meal timing and impacting portions BG review and trends BM improvements and potential etiologies Created SMART goals for patient self-care and success. Goals: Take insulin pre meal- improved Set HS snack time- improved Bring FSL central processing technician - met Add more veg to lunch- new Try 8-10 crackers with pro as a snack- new Measure CHO at dinner- new Consider earlier afternoon snack- new Follow-up: BRO SANDOVAL follow-up in 3-4 weeks Elissa Barbour RDN, JAIME Certified Diabetes Care and Crater And Packer P: [phone] Thank you for this referral
== END ==
PROVIDERS: PCP Internal Medicine; Referring Provider Internal Medicine
DX: E11.9 Type 2 diabetes mellitus without complications (principal); Z71.3 Dietary counseling and surveillance; Z83.3 Family history of diabetes mellitus; Z79.4 Long term (current) use of insulin; Z79.84 Long term (current) use of oral hypoglycemic drugs
CPT/HCPCS: 97803

== ENCOUNTER → 2024-08-04 12:44 | Outpatient (CLI) | payer OTHER, SELFPAY ==
[2024-08-04 13:22] LABS: BUN Creatinine Ratio 19.9 (6-22); Blood Urea Nitrogen 30 mg/dL (9-20); Calcium 9.6 mg/dL (8.4-10.2); Carbon Dioxide 30 mmol/L (22-32); Chloride 101 mmol/L (98-107); Estimated Glomerular Filt Rate 51 mL/min (>60); Glucose 154 mg/dL (80-110); Sodium 136 mmol/L (137-145)
[2024-08-04 13:38] LABS: HEMOLYSIS 58 (0-50)
[2024-08-04 13:39] LABS: Potassium 5.3 mmol/L (3.4-5.1)
== END ==
PROVIDERS: PCP Internal Medicine; Referring Provider Internal Medicine; Visit Provider Internal Medicine
DX: N18.31 Chronic kidney disease, stage 3a (principal)
CPT/HCPCS: 36415; 80048

== ENCOUNTER → 2024-08-20 15:53 | Outpatient (CLI) | payer OTHER, SELFPAY ==
--- NOTE | 2024-08-28 08:29 | DIAB.MNTFU ---
Follow-up Diabetes Medical Nutrition Therapy Assessment Name: Poncho Navarro Date: 08/20/24 Time: 4-5p Dx: Type II Diabetes Poncho presents for follow-up visit with , Breonna. PMH of diagnosis about 10 years ago. Reports FH of DM with father. Would like to try G7 with student success counselor today. New [facility] insurance starts in Aug and plans to start Jardiance since will be more affordable. Cardiology on 09/02 and Kidney specialist on 09/11 Aiming for 60oz water per day. Diarrhea continues to improve since changing to ER Metformin, more formed stool and reduced freq from 5x per day to 2x per day. HS snack now cottage cheese and fruit Changed to lower CHO yogurt with 2g CHO less snacking pre dinner less grazing less sweets in snack drawer Last Diet recall: 630a: water 10a: 3-4 selma cookies or rice crackers 12p: yogurt 25g CHO with chicken tenders and 1.5c ham and veg soup with some beans/corn, celery with Deeth butter 4p: bowl of chips 530p: protein and veggies 7p: 2c chips or yogurt Anthropometrics: Ht: 6' Wt: 293# 03/2024 Physical Activity: active with job, sometimes walks the dog Self-Monitoring Blood Glucose: Uses FSL2. Much improved time in range and big reduction in >250mg/dl time. TODAY TIR: from student success counselor 10% very high 38% high 52% in range 0% low or very low avmg/dl variance: 26.3% GMI: 7.7% Last TIR: from student success counselor 37% very high 56% high 7% in range 0% low or very low avmg/dl 17.9 variance Diabetes Medications: 28u Lantus BID 8-15u Aspart TID-- B: 12-15u L: 8-12u D: 8-12u 500mg Metformin ER BID Pertinent Labs: HgA1c: 8.8% 03/2024 8.7% 06/2024 cpeptide 9.8 H GFR: 34 Cr 2.11 H Past Medical History: (Last Updated 07/13/24 @ 14:30 by Mike Correa MD) Acquired hypothyroidism Cerebrovascular disease Chronic back pain Chronic diarrhea Chronic insomnia Coronary artery disease Depression, major, recurrent Diabetes mellitus with insulin therapy Essential hypertension Gout Hearing loss Loud work environment/gradual loss History of colonic polyps History of thyroid cancer Hypertension IgA nephropathy Kidney stones Mixed hyperlipidemia Osteoarthritis of right hip Primary osteoarthritis involving multiple joints Stage 3a chronic kidney disease (CKD) Type 2 diabetes mellitus with mild nonproliferative diabetic retinopathy without macular edema, 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 Provided appropriate educational handouts. Discussed the following topics: Dosing insulin with meals CGM self placement with education Medication options and action Hydration recs especially with SGLT2i benefits to kidneys with SGLT2i and BG improvements Created SMART goals for patient self-care and success. Goals: Add more veg to lunch- met Try 8-10 crackers with pro as a snack- met Measure CHO at dinner- sometimes met Consider earlier afternoon snack- met Take mealtime insulin if eating CHO at meal- new Wear CGm x 10.5 days- new Start SGLT2i- new Stay hydrated- new Try: Small meal: 8-10u Medium Meal: 12-15u Large meal: 16-20u Follow-up: BRO SANDOVAL follow-up in 3-4 weeks Elissa Barbour RDN, JAIME Certified Diabetes Care and Senior Accounts Payable Clerk P: [phone] Thank you for this referral
== END ==
PROVIDERS: PCP Internal Medicine; Referring Provider Internal Medicine
DX: E11.9 Type 2 diabetes mellitus without complications (principal); Z71.3 Dietary counseling and surveillance; Z83.3 Family history of diabetes mellitus; Z79.4 Long term (current) use of insulin; Z79.84 Long term (current) use of oral hypoglycemic drugs
CPT/HCPCS: 97803

== ENCOUNTER → 2024-09-09 15:47 | Outpatient (CLI) | payer OTHER, MEDICARE, SELFPAY ==
[2024-09-09 17:50] LABS: Creatinine Urine Random 78.22 mg/dL
[2024-09-09 18:10] LABS: Protein (Total) Urine Random 353 mg/dL (0-12); Protein Creatinine Ratio Urine 4.51 GRAM/24H
[2024-09-10 17:31] LABS: Blood Urea Nitrogen 26 mg/dL (9-20); Calcium 9.2 mg/dL (8.4-10.2); Carbon Dioxide 31 mmol/L (22-32); Chloride 100 mmol/L (98-107); Estimated Glomerular Filt Rate 46 mL/min (>60); Glucose 106 mg/dL (80-110); HEMOLYSIS < 15 (0-50); Potassium 5.3 mmol/L (3.4-5.1); Sodium 136 mmol/L (137-145)
[2024-09-11 06:36] LABS: Parathyroid Hormone Int 78 pg/mL (15-65)
== END ==
PROVIDERS: PCP Internal Medicine; Referring Provider Student in an Organized Health Care Education/Training Program; Visit Provider Student in an Organized Health Care Education/Training Program
DX: N05.9 Unspecified nephritic syndrome with unspecified morphologic changes (principal); D70.9 Neutropenia, unspecified; D63.1 Anemia in chronic kidney disease; N25.81 Secondary hyperparathyroidism of renal origin; R80.9 Proteinuria, unspecified
CPT/HCPCS: 36415; 80048; 82570; 83970; 84156; 85014; 85018

== ENCOUNTER → 2024-09-21 16:12 | Outpatient (CLI) | payer OTHER, MEDICARE, SELFPAY ==
[2024-09-21 17:43] LABS: HEMOLYSIS < 15 (0-50); Potassium 4.5 mmol/L (3.4-5.1)
== END ==
PROVIDERS: PCP Internal Medicine; Referring Provider Student in an Organized Health Care Education/Training Program; Visit Provider Student in an Organized Health Care Education/Training Program
DX: E87.5 Hyperkalemia (principal)
CPT/HCPCS: 36415; 84132

== ENCOUNTER → 2024-10-15 16:35 | Outpatient (CLI) | payer MEDICARE, SELFPAY ==
[2024-10-15 17:24] LABS: BUN Creatinine Ratio 23.6 (6-22); Blood Urea Nitrogen 42 mg/dL (9-20); Calcium 9.6 mg/dL (8.4-10.2); Carbon Dioxide 29 mmol/L (22-32); Chloride 100 mmol/L (98-107); Estimated Glomerular Filt Rate 42 mL/min (>60); Glucose 162 mg/dL (80-110); HEMOLYSIS < 15 (0-50); Potassium 4.5 mmol/L (3.4-5.1); Sodium 139 mmol/L (137-145)
[2024-10-15 17:27] LABS: Hemoglobin A1C% w Est Avg Glu 7.5 % (4.0-6.0)
== END ==
PROVIDERS: PCP Internal Medicine; Referring Provider Internal Medicine; Visit Provider Internal Medicine
DX: E11.3293 Type 2 diabetes mellitus with mild nonproliferative diabetic retinopathy without macular edema, bilateral (principal)
CPT/HCPCS: 36415; 80048; 83036

== ENCOUNTER 2024-10-25 10:02 | Emergency (ER) | payer MEDICARE, OTHER, SELFPAY ==
[2024-10-25] VITALS (12 sets, daily range): BP systolic 132–189; BP diastolic 64–91; PULSE 37–61; RESP 12–25; TEMP 36.6; O2SAT 94–97; BMI 32.1
--- NOTE | 2024-10-25 11:05 | PC.NURSE ---
Open heart surgery in 2021, hx of stroke, hx low HR, followed by [facility] cardiology
--- NOTE | 2024-10-25 11:22 | ED_ITS ---
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 Patient has not had any fevers. He states he does have a tooth that has seemed painful particularly when something that is in it. He saw the dentist 2 weeks ago they told him it did not appear to have any issues in the they would like to try to save it. He was put on amoxicillin which he has been taking it seemed to be helpful but after he was completed at his pain is return. He notes some times in the pain seems to be underneath the jaw as well. He denies any obvious swelling or redness. Denies any swelling inside. States he was rubbing the area about a week ago and had a bad taste in his mouth. Patient does note he has been a little bit hoarse since this started. He no nasal congestion. No sore throat. No fevers. No swelling of the oropharynx he was noted. Patient has had thyroidectomy in the past is on thyroid medication. He denies any other symptoms. He does follow regularly with nephrology for his CKD notes that his renal function has been trending down words. Today patient has had Tylenol, Neurontin as well as Vicodin which was helpful but is rubbing off. Dr. Correa is his primary care physician. Related Data Home Medications Medication Instructions Recorded Confirmed aspirin 81 mg tablet,delayed 81 mg PO DAILY ##0 06/23/08 10/15/24 release metoprolol succinate 50 mg 50 mg PO BID 03/29/22 10/15/24 tablet,extended release 24 hr clopidogrel 75 mg tablet 75 mg PO DAILY 05/14/23 10/15/24 atorvastatin 40 mg tablet 40 mg PO DAILY 04/13/24 10/15/24 chlorthalidone 25 mg tablet 25 mg PO DAILY 04/13/24 10/15/24 losartan 50 mg tablet 25 mg PO DAILY 10/15/24 10/15/24 Previous Rx's Medication Instructions Recorded albuterol sulfate 90 mcg/actuation 2 puff inhalation Q6H PRN 08/08/22 aerosol inhaler shortness of breath or wheezing #8.5 grams fluticasone propionate 250 1 inh inhalation BID #60 ea 08/08/22 mcg/actuation blister powder for inhalation (Flovent Diskus) flash glucose scanning reader #1 ea 11/09/22 (FreeStyle Sharmin 2 [place]) pen needle, diabetic 31 gauge x #100 ea 05/20/2308/01 (TRUEplus Pen Needle) insulin aspart U-100 100 unit/mL 12 unit (0.12 mL) SUBCUT QAC #45 mL 11/28/23 (3 mL) subcutaneous pen (Novolog FlexPen U-100 Insulin aspart) flash glucose sensor (FreeStyle #6 ea 01/20/24 Sharmin 14 Day Sensor kit) allopurinol 100 mg tablet 100 mg PO DAILY #90 tabs 03/31/24 trazodone 50 mg tablet 50 - 100 mg (1 - 2 x 50 mg) PO 06/01/24 BEDTIME PRN sleep #90 tabs levothyroxine 112 mcg tablet 224 mcg (2 x 112 mcg) PO DAILY 06/08/24 #180 tabs insulin glargine 100 unit/mL (3 28 unit (0.28 mL) SUBCUT BID #15 mL 06/30/24 mL) subcutaneous pen (Lantus Solostar U-100 Insulin) empagliflozin 10 mg tablet 10 mg PO DAILY #90 tabs 07/13/24 (Jardiance) metformin 500 mg tablet,extended 500 mg PO BID #180 tabs 07/13/24 release 24 hr hydrocodone 5 mg-acetaminophen 325 1 tab PO Q6H PRN pain #30 tabs 10/09/24 mg tablet empagliflozin 25 mg tablet 25 mg PO DAILY #90 tabs 10/15/24 (Jardiance) amoxicillin 875 mg-potassium 1 tab PO BID #20 tabs 10/25/24 clavulanate 125 mg tablet Allergies Allergy/AdvReac Type Severity Reaction Status Date / Time HAKAN Inhibitors AdvReac Intermediate Verified 10/15/24 16:00 [HAKAN INHIBITORS] duloxetine AdvReac Intermediate dysphoria Verified 10/15/24 16:18 metformin AdvReac Intermediate diarrhea Verified 10/15/24 16:12 (ER is tolerated) simvastatin [SIMVASTATIN] AdvReac Intermediate muscle Verified 10/15/24 16:00 aches, upset stomach Review of Systems Review of Systems ROS Unobtainable: All systems reviewed & are unremarkable except as noted in HPI and below Patient History Medical History Chronic diarrhea Depression, major, recurrent Type 2 diabetes mellitus with mild nonproliferative diabetic retinopathy without macular edema, bilateral History of thyroid cancer History of colonic polyps Osteoarthritis of right hip Acquired hypothyroidism Vision disorder Chronic back pain Hearing loss IgA nephropathy Kidney stones Chronic insomnia Primary osteoarthritis involving multiple joints Stage 3a chronic kidney disease (CKD) Diabetes mellitus with insulin therapy Gout Mixed hyperlipidemia Essential hypertension Cerebrovascular disease Coronary artery disease Type 2 diabetes mellitus with nephropathy Hypertension Surgical History Anesthesia S/P TURP (~2014) History of cholecystectomy (~10/2021) Hx of CABG (~07/2021) History of thyroidectomy Family History Father Diabetes mellitus History of heart disease Hypertension Hyperlipidemia Mother Stroke Social History household members: spouse Smoking Status: Never smoker Smoking Status: Never smoker alcohol intake frequency: holidays/special occasions only Exam Narrative Exam Narrative: GEN: well nourished, well appearing [default value], alert and oriented x 3, patient appears to be in mild distress. HEENT: Atraumatic, pupils are equal round reactive to light, extraocular movements are intact, nares are clear, TMs are clear with no fluid, there is no conjunctival pallor. Throat is clear without any exudates, erythema, tonsillar enlargement or uvular deviation, patient does have poor dentition posterior lower right molar appears to be cracked, patient has some mild tenderness over that site there is no swelling of the gums, no facial swelling, no erythema. Patient has some mild tenderness tenderness over the right jaw. Some mild lymphadenopathy on the right but I mobile with no fluctuance. No swelling of the neck or airway. No rash or skin change. Patient was slightly hoarse but otherwise has normal speech no difficulty with secretions. No muffled voice. HEART: Regular rate and rhythm without murmur, clicks, rubs. No carotid bruits, pulses are equal in upper and lower extremities LUNGS:Lungs clear to auscultation, no wheezes, rales, crackles, chest moves symmetrically ABD:bowel sounds normal, soft, non-tender, no guarding, rebound, rigidity, no masses noted, no hepatosplenomegaly MSCL: full range of motion NEURO:CN 2-12 intact, sensation normal Initial Vital Signs Initial Vital Signs: Vital Signs Pulse Rate 51 L 10/25/24 10:23 Blood Pressure 186/87 H 10/25/24 10:23 Pulse Oximetry 96 10/25/24 10:23 Course Orders Ordered: Discontinued Medications Hydrocodone Bitart/Acetaminophen (Hydrocodone/Acet 5/325 Tablet) 2 tab PO NOW ONE Stop: 10/25/24 11:52 Last Admin: 10/25/24 11:56 Dose: 2 tab Documented By: QUYNH Sodium Chloride (Normal Saline 0.9%) 1,000 mls @ 1,000 mls/hr IV BOLUS ONE Stop: 10/25/24 13:50 Last Infusion: 10/25/24 13:51 Dose: Infused Documented By: Admin: 10/25/24 12:59 Dose: 1,000 mls/hr Documented By: QUYNH Vital Signs Vital signs: Vital Signs - 8 hr 10/25/24 10:23 10/25/24 10:23 10/25/24 10:29 Temperature 97.8 F Pulse Rate 51 L 48 L Respiratory Rate 18 Blood Pressure 186/87 H 189/91 H Pulse Oximetry 96 97 Oxygen Delivery Method Room Air 10/25/24 10:30 10/25/24 10:30 10/25/24 11:00 Temperature Pulse Rate 50 L 50 L Respiratory Rate 16 Blood Pressure 186/91 H Pulse Oximetry 97 94 Oxygen Delivery Method 10/25/24 11:00 10/25/24 11:30 10/25/24 11:30 Temperature Pulse Rate 48 L Respiratory Rate 14 Blood Pressure 181/85 H 164/84 H Pulse Oximetry 96 Oxygen Delivery Method 10/25/24 12:05 10/25/24 12:30 10/25/24 12:45 Temperature Pulse Rate 54 L 45 L Respiratory Rate 25 H 21 Blood Pressure 132/64 Pulse Oximetry 95 96 Oxygen Delivery Method 10/25/24 12:45 10/25/24 13:00 10/25/24 13:00 Temperature Pulse Rate 37 L 44 L Respiratory Rate 14 14 Blood Pressure 132/70 Pulse Oximetry 95 95 Oxygen Delivery Method 10/25/24 13:30 10/25/24 13:30 Temperature Pulse Rate 51 L Respiratory Rate Blood Pressure 169/80 H Pulse Oximetry 95 Oxygen Delivery Method MDM - Skin/Abscess/Foreign Bdy Lab Data 10/25/24 10:39 10/25/24 10:39 Labs: Lab Results 10/25/24 Range/Units 10:39 WBC 9.6 (4.5-11.0) X10^3/uL RBC 5.29 (4.5-5.9) X10^6/uL Hgb 16.5 (13.5-17.5) g/dL Hct 49.1 (41-53) % MCV 92.8 (80-100) fL MCH 31.1 (26-34) PG MCHC 33.6 (30-36) % RDW 13.7 (11.6-14.8) % Plt Count 249 (150-400) X10^3/uL Neut % (Auto) 75.7 H (50-75) % Lymph % (Auto) 15.9 L (25-40) % Orange % (Auto) 6.5 (3-14) % Eos % (Auto) 1.4 L (2-4) % Baso % (Auto) 0.5 (0-2) % Neut # (Auto) 7300 H (0730-8065) /uL Lymph # (Auto) 1500 (6417-6920) /uL Orange # (Auto) 600 (0-900) /uL Eos # (Auto) 100 (0-450) /uL Baso # (Auto) 100 (0-100) /uL Sodium 136 L (137-145) mmol/L Potassium 5.0 (3.4-5.1) mmol/L Chloride 99 (98-107) mmol/L Carbon Dioxide 26 (22-32) mmol/L BUN 42 H (9-20) mg/dL Creatinine 1.69 H (0.66-1.25) mg/dL Estimated GFR 44 L (>60) mL/min BUN/Creatinine Ratio 24.9 H (6-22) Glucose 206 H (80-110) mg/dL Calcium 9.9 (8.4-10.2) mg/dL Total Creatine Kinase 51 L (55-170) U/L Troponin I < 0.012 (0.01-0.034) ng/mL Point of Care Testing Glucose POC 171 MDM Narrative Medical decision making narrative: 64-year-old male with what I suspect is dental pain versus sialoadenitis patient has had persistent discomfort to get a little bit better with oral antibiotic did see a dentist told him they did not find any issues he does have a cracked tooth in that area but they wanted to preserve it he has had poor dentition in the past. He does note some pain directly related to that tooth but notes that he was also has a little bit of hoarseness some swelling in the salivary gland area as well. Patient has CKD, last GFR was 42 but after discussion we will hold off on contrast as patient's renal function has been declining over time. Discussed that we will not be quite as helpful I suspect this is more dental but we will rule out other causes. Labs show normal white count hemoglobin and platelets, chemistries show creatinine of 1.69 BUN of 42 sodium 136 glucose is 206 troponins less than 0.012 CT soft tissue neck without contrast shows stable encephalomalacia of the right occipital lobe. Lung apices appear clear. No acute abnormality no glandular ductal dilation or stone. Chest x-ray is negative. While here patient had oral pain medication about 30-40 minutes prior and heart rate was in the 40-50s drop down into the 30s and 40s he felt little bit dizzy but was never hypotensive, no chest pain, no shortness of breath, no diaphoresis. No syncope or presyncope. Does not note he has had issues with a his beta selene has been too strong in the past. Denies other symptoms. Did Accu-Chek patient's glucose was appropriate. EKG was obtained patient has sinus bradycardia with a rate of 38 [place] 118 QRS of 96 QTC of 429. Patient has inverted T-waves in lateral leads particularly V2 V3 other ST segments appears similar. Patient has prior from 10/26/2021 which shows V2 V3 appears changed. Troponin it was added on. Patient had fluids. He was feeling improved on recheck is ambulating without issue. Discharge Plan Departure Patient Disposition: Home Clinical Impression: Pain, dental, Bradycardia Activity Restrictions/Additional Instructions: I do think he would benefit from following up with a dentist your labs and imaging today do not show any other clear source of your pain. Your heart rate did get quite slow this afternoon I would have you hold your evening metoprolol dose and follow up with your physician. You can take antibiotics until completed. You can take your pain medication 1 tablet every 6 hours as needed. Prescription sent to [facility] in [place] Please return if you develop fevers increasing redness or swelling of the face, tongue or airway, discharge or other new or concerning changes. Prescriptions: New amoxicillin-pot clavulanate 875-125 mg tablet 1 tab PO BID Qty: 20 0RF No Action aspirin 81 mg Tablet,Delayed Release (Dr/Ec) 81 mg PO DAILY Qty: 0 (DME) pen needle, diabetic [TRUEplus Pen Needle] 31 gauge x 1/4 needle See Rx Instructions .ROUTE .MEDSUPPLY Qty: 100 6RF Rx Instructions: As directed for insulin; 5 needles daily insulin aspart U-100 [Novolog FlexPen U-100 Insulin] 100 unit/mL (3 mL) insulin pen 12 unit SUBCUT QAC Qty: 45 3RF Rx Instructions: give 12 units 30 prior to meals (DME) FreeStyle Sharmin 14 Day Sensor Kit See Rx Instructions .Route Qty: 6 12RF Rx Instructions: As directed allopurinol 100 mg tablet 100 mg PO DAILY Qty: 90 3RF trazodone 50 mg tablet 50 - 100 mg PO BEDTIME PRN (Reason: sleep) Qty: 90 3RF levothyroxine 112 mcg tablet 224 mcg PO DAILY Qty: 180 3RF insulin glargine [Lantus Solostar U-100 Insulin] 100 unit/mL (3 mL) insulin pen 28 unit SUBCUT BID Qty: 15 6RF hydrocodone-acetaminophen 5-325 mg tablet 1 tab PO Q6H PRN (Reason: pain) Qty: 30 0RF clopidogrel 75 mg tablet 75 mg PO DAILY losartan 50 mg tablet 25 mg PO DAILY Jardiance 10 mg tablet 10 mg PO DAILY Qty: 90 3RF metformin 500 mg tablet extended release 24 hr 500 mg PO BID Qty: 180 3RF metoprolol succinate 50 mg tablet extended release 24 hr 50 mg PO BID albuterol sulfate 90 mcg/actuation HFA aerosol inhaler 2 puff inhalation Q6H PRN (Reason: shortness of breath or wheezing) Qty: 8.5 5RF Flovent Diskus 250 mcg/actuation blister with device 1 inh inhalation BID Qty: 60 1RF (DME) FreeStyle Sharmin 2 [place] Misc See Rx Instructions .Route Qty: 1 0RF Rx Instructions: As directed chlorthalidone 25 mg tablet 25 mg PO DAILY Hold Instructions: Kidney Function atorvastatin 40 mg tablet 40 mg PO DAILY Jardiance 25 mg tablet 25 mg PO DAILY Qty: 90 3RF Referrals: Mike Correa MD [Primary Care Provider] - Stand Alone Forms: Patient Portal/API/Survey
--- NOTE | 2024-10-25 11:50 | DI.CT.S_ITS ---
PROCEDURE: CT SOFT TISSUE NECK WO CON INDICATIONS: right jaw/gland pain, mildly hoarse, bad taste, ? stone TECHNIQUE: Non-contrast 3.0 mm axial sections acquired from the sella to the aortic arch. Additional oblique axial 3.0 mm sections acquired through the pharynx. 3 mm thick coronal and sagittal reformats were generated. For radiation dose reduction, the following was used: automated exposure control. COMPARISON: None. FINDINGS: Image quality: Excellent. Lymph nodes: No enlarged lymph nodes seen throughout the neck. Vessels: Non-opacified vessels appear normal in caliber. Neck spaces: The oropharynx, nasopharynx, and pharynx demonstrate no mucosal lesions. The vocal cords, false vocal cords, pyriform sinuses, epiglottis, vallecula, and tongue base all appear normal. Extramucosal spaces appear unremarkable. Glands: The parotid and submandibular glands appear normal, without stones. Thyroid gland is absent . Bones: No aggressive osseous abnormality. No displaced fractures. Miscellaneous: Stable encephalomalacia of the right occipital lob. Lung apices appear clear. Superficial soft tissues appear normal. IMPRESSION: No acute abnormality. No glandular ductal dilation or stone. Dictated by: Jozef Nelson M.D. on 10/25/2024 at 12:32 Approved by: Jozef Nelson M.D. on 10/25/2024 at 12:34
[2024-10-25] MEDS: HYDROCODONE/ACET 5/325 TABLET 2 TAB PO (11:56)
[2024-10-25 12:03] LABS: Add Manual Diff / Slide Review NO; Basophils Absolute Auto 100 /uL (0-100); Basophils Percent Auto 0.5 % (0-2); Eosinophils Absolute Auto 100 /uL (0-450); Eosinophils Percent Auto 1.4 % (2-4); Hematocrit 49.1 % (41-53); Hemoglobin 16.5 g/dL (13.5-17.5); Lymphocytes Absolute Auto 1500 /uL (1100-4500); Lymphocytes Percent Auto 15.9 % (25-40); Mean Corpuscular HGB Conc 33.6 % (30-36); Mean Corpuscular Hemoglobin 31.1 PG (26-34); Mean Corpuscular Volume 92.8 fL (80-100); Monocytes Absolute Auto 600 /uL (0-900); Monocytes Percent Auto 6.5 % (3-14); Neutrophils Absolute Auto 7300 /uL (1500-7000); Neutrophils Percent Auto 75.7 % (50-75); Platelet Count 249 X10^3/uL (150-400); Red Blood Cell Count 5.29 X10^6/uL (4.5-5.9); Red Cell Distribution Width 13.7 % (11.6-14.8); White Blood Cell Count 9.6 X10^3/uL (4.5-11.0)
--- NOTE | 2024-10-25 12:08 | PC.NURSE ---
Pt HR mid 40s to 50 BPM, physician aware. No new orders.
[2024-10-25 12:10] LABS: BUN Creatinine Ratio 24.9 (6-22); Blood Urea Nitrogen 42 mg/dL (9-20); Calcium 9.9 mg/dL (8.4-10.2); Carbon Dioxide 26 mmol/L (22-32); Chloride 99 mmol/L (98-107); Estimated Glomerular Filt Rate 44 mL/min (>60); Glucose 206 mg/dL (80-110); HEMOLYSIS < 15 (0-50); Sodium 136 mmol/L (137-145)
--- NOTE | 2024-10-25 12:52 | PC.NURSE ---
Physician at bedside, pt had episode of 32 BPM HR, EKG performed. Current HR bouncing between 27-35 BPM. Code cart at bedside, pads placed on patient.
--- NOTE | 2024-10-25 12:55 | DI.RAD.S_ITS ---
PROCEDURE: XR CHEST 1V INDICATIONS: low HR TECHNIQUE: One view of the chest was acquired. COMPARISON: [facility], CR, XR CHEST 1V, 10/26/2021, 9:46. [facility], CR, XR CHEST 2V, 09/11/2021, 17:35. FINDINGS: Surgical changes and devices: Sternotomy. Lungs and pleura: Lungs are clear. No pleural effusions or pneumothorax. Mediastinum: Mediastinal contours appear normal. Heart size is normal. Bones and chest wall: No suspicious bony lesions. Overlying soft tissues appear unremarkable. IMPRESSION: No acute cardiopulmonary abnormality is seen. Dictated by: Jozef Nelson M.D. on 10/25/2024 at 13:31 Approved by: Jozef Nelson M.D. on 10/25/2024 at 13:32
[2024-10-25] MEDS: SODIUM CHLORIDE 0.9% 1,000 ML 1000 ML IV (12:59)
[2024-10-25 13:06] LABS: Creatine Kinase 51 U/L (55-170)
[2024-10-25 13:18] LABS: Troponin I < 0.012 ng/mL (0.01-0.034)
--- NOTE | 2024-10-26 12:45 | EKG_ITS ---
[id number] [place] [address] Test Date: 2024-10-25 Pat Name: Poncho Navarro Department: Room: Gender: Male Ribber: : 1960 Requested By: Order Number: [id number] Reading MD: Miguel Mosquera Measurements Intervals [place] Rate: 38 P: 34 RI: 118 QRS: 46 QRSD: 96 T: 158 QT: 540 QTc: 429 Interpretive Statements Critical Test Result: Low HR Marked sinus bradycardia ST & T wave abnormality, consider anterolateral ischemia Electronically Signed On 10-28-2024 18:42:29 PDT by Miguel Mosquera
== END 2024-10-25 14:37 | disposition home or self-care (01) ==
PROVIDERS: Emergency Provider Emergency Medicine; PCP Internal Medicine
DX: K08.89 Other specified disorders of teeth and supporting structures (principal); R68.84 Jaw pain; R00.1 Bradycardia, unspecified; I12.9 Hypertensive chronic kidney disease with stage 1 through stage 4 chronic kidney disease, or unspecified chronic kidney disease; N18.9 Chronic kidney disease, unspecified
CPT/HCPCS: 70490; 71045; 80048; 82550; 82962; 84484; 85025; 93005; 96360; 99284

== ENCOUNTER → 2024-11-06 15:47 | Outpatient (CLI) | payer MEDICARE, SELFPAY ==
[2024-11-06 16:53] LABS: Creatinine Urine Random 85.41 mg/dL; Protein (Total) Urine Random 84 mg/dL (0-12); Protein Creatinine Ratio Urine 0.98 GRAM/24H
[2024-11-06 17:08] LABS: Hematocrit 45.1 % (41-53); Hemoglobin 15.2 g/dL (13.5-17.5)
[2024-11-06 18:04] LABS: BUN Creatinine Ratio 17.6 (6-22); Blood Urea Nitrogen 33 mg/dL (9-20); Calcium 9.4 mg/dL (8.4-10.2); Carbon Dioxide 29 mmol/L (22-32); Chloride 101 mmol/L (98-107); Estimated Glomerular Filt Rate 39 mL/min (>60); Glucose 79 mg/dL (80-110); HEMOLYSIS < 15 (0-50); Sodium 139 mmol/L (137-145)
[2024-11-08 08:40] LABS: Calcium 9.2 mg/dL (8.6-10.2); Parathyroid Hormone, Intact 100 pg/mL (15-65)
== END ==
PROVIDERS: PCP Internal Medicine; Referring Provider Student in an Organized Health Care Education/Training Program; Visit Provider Student in an Organized Health Care Education/Training Program
DX: N05.9 Unspecified nephritic syndrome with unspecified morphologic changes (principal); D70.9 Neutropenia, unspecified; D63.1 Anemia in chronic kidney disease; N25.81 Secondary hyperparathyroidism of renal origin; R80.9 Proteinuria, unspecified
CPT/HCPCS: 36415; 80048; 82310; 82570; 83970; 84156; 85014; 85018

== ENCOUNTER → 2024-11-24 15:51 | Outpatient (CLI) | payer MEDICARE, OTHER, SELFPAY ==
--- NOTE | 2024-11-24 16:09 | DIAB.FU ---
Follow-up Diabetes Education Assessment Name: Poncho Navarro Date: 11/24/24 Time: 4-5p Dx: Type II Diabetes Poncho presents for follow-up visit with , Breonna. Improved recent hgA1c, however experiencing some diabetes burnout it seems. Had infection, root canal completed and seems to have improved. Also had recent ED visit with bradycardia. Feels he has had a lot of health complications as of recent. Has not been consistent with taking insulin per report. Despite increasing Jardiance to 25mg, BG are quite elevated with inconsistent insulin dosing. Unclear if dizziness has increased with Jardiance. States he would like to continue to take it at this time. Reports some pretty debilitating dizziness and head pressure that seems to impact his day to day life. Reports this has been discussed with PCP. Trying to drink 80oz water per eport. Does not like CGM alarms. Now on Dexcom, d/c Sharmin. States insulin pump not an option at this time. Cost prohibitive, and would like to revisit this next year after detention. Anthropometrics: Ht: 6' Wt: no wt today 293# 03/2024 Physical Activity: active with job, sometimes walks the dog Self-Monitoring Blood Glucose: Uses Dexcom. Increase in hyperglycemia since last visit. TODAY TIR: from scientific laboratory supervisor 28% very high 56% high 16% in range 0% low or very low avmg/dl variance: 24.4% GMI: 8.8% Last TIR: from scientific laboratory supervisor 10% very high 38% high 52% in range 0% low or very low avmg/dl variance: 26.3% GMI: 7.7% Diabetes Medications: 28u Lantus BID 8-15u Aspart TID-- B: 12-15u L: 8-12u D: 8-12u-- reported last visit 500mg Metformin ER BID 25mg Jardiance Pertinent Labs: HgA1c: 8.8% 03/2024 8.7% 06/2024 7.5% 09/2024 cpeptide 9.8 H Past Medical History: (Last Reviewed 10/25/24 @ 11:54 by Michelle Stuart DO) Acquired hypothyroidism Cerebrovascular disease Chronic back pain Chronic diarrhea Chronic insomnia Coronary artery disease Depression, major, recurrent Diabetes mellitus with insulin therapy Essential hypertension Gout Hearing loss Loud work environment/gradual loss History of colonic polyps History of thyroid cancer Hypertension IgA nephropathy Kidney stones Mixed hyperlipidemia Osteoarthritis of right hip Primary osteoarthritis involving multiple joints Stage 3a chronic kidney disease (CKD) Type 2 diabetes mellitus with mild nonproliferative diabetic retinopathy without macular edema, 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 Provided appropriate educational handouts. Discussed the following topics: SE and benefits with SGLT2i Diabetes burnout and taking a short safe break and resuming Insulin pump potential Importance of taking insulin consistently Hydration Changed high alerts per pt req Created SMART goals for patient self-care and success. Goals: Take mealtime insulin if eating CHO at meal- in progress Wear CGm x 10.5 days- met Start SGLT2i- met Stay hydrated- met Try: Small meal: 8-10u Medium Meal: 12-15u Large meal: 16-20u Restart insulin regimen- new Follow-up: BRO SANDOVAL follow-up in 3-4 weeks Elissa Barbour RDN, JAIME Certified Diabetes Care and Mental Health Counselor P: [phone] Thank you for this referral
== END ==
LOC: DIET 15:52
PROVIDERS: PCP Internal Medicine; Referring Provider Internal Medicine
DX: E11.65 Type 2 diabetes mellitus with hyperglycemia (principal); Z71.3 Dietary counseling and surveillance; Z79.84 Long term (current) use of oral hypoglycemic drugs; Z79.4 Long term (current) use of insulin
CPT/HCPCS: G0108

== ENCOUNTER → 2024-12-23 15:54 | Outpatient (CLI) | payer MEDICARE, OTHER, SELFPAY ==
--- NOTE | 2024-12-31 16:47 | DIAB.MNTFU ---
Follow-up Diabetes Medical Nutrition Therapy Assessment Name: Poncho Navarro Date: 12/23/24 Time: 4-445p Dx: Type II Diabetes Poncho presents for follow-up visit with , Breonna. Since changing alarms, feeling less alarm fatigue. BG has been up, which increases headaches and pressure in his head per report. Has reduced CHO intake pre dinner, and he has been choosing salads instead. BG highest after dinner. Endorses dessert after dinner. Dinner at 6p with salad and protein with 1c of rice or 1c polenta or 1c of pasta. Then one hour later has dessert: donn cracker with frosting OR cookies OR ice cream sandwich. States insulin pump not an option at this time. Cost prohibitive, and would like to revisit this next year after halfway. Anthropometrics: Ht: 6' Wt: 227# reported 293# 03/2024 Physical Activity: active with job, sometimes walks the dog Self-Monitoring Blood Glucose: Uses Dexcom. Reduced BG >250mg/dl since last visit and improved time in range. TODAY TIR: from hoist mechanic 9% very high 45% high 46% in range 0% low or very low avmg/dl std dev: 41mg/dl variance: 21.4% GMI: 7.9% Last TIR: from hoist mechanic 28% very high 56% high 16% in range 0% low or very low avmg/dl variance: 24.4% GMI: 8.8% Diabetes Medications: 28u Lantus BID 14-18u Aspart TID 500mg Metformin ER BID 25mg Jardiance Pertinent Labs: HgA1c: 8.8% 03/2024 8.7% 06/2024 7.5% 09/2024 cpeptide 9.8 H Past Medical History: (Last Reviewed 10/25/24 @ 11:54 by Michelle Stuart DO) Acquired hypothyroidism Cerebrovascular disease Chronic back pain Chronic diarrhea Chronic insomnia Coronary artery disease Depression, major, recurrent Diabetes mellitus with insulin therapy Essential hypertension Gout Hearing loss Loud work environment/gradual lossHistory of colonic polyps History of thyroid cancer Hypertension IgA nephropathy Kidney stones Mixed hyperlipidemia Osteoarthritis of right hip Primary osteoarthritis involving multiple joints Stage 3a chronic kidney disease (CKD) Type 2 diabetes mellitus with mild nonproliferative diabetic retinopathy without macular edema, 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 Vision disorder Stroke 1/ loss Nutrition Rx: Carbohydrates: Meal:45gSnack:15-30g Nutrition Diagnosis: -Excessive CHO intake r/t dessert time close to dinner CHO portion aeb pt report- new Intervention: This participant was very receptive. Provided appropriate educational handouts. Discussed the following topics: Strategies for reducing CHO intake Strategies for incorporating HS snack or dessert without excessive hyperglycemia potential for changes to insulin in evening Created SMART goals for patient self-care and success. Goals: Restart insulin regimen- met Start with salad each dinner- new try to cut out dessert and Hs snack or move 3 hours from dinner- new Consider increase in dinner ac insulin dose if hyperglycemia continues in evening- new Follow-up: BRO SANDOVAL follow-up in 3-4 weeks Elissa Barbour RDN, JAIME Certified Diabetes Care and Dairy Technician P: [phone] Thank you for this referral
== END ==
PROVIDERS: PCP Internal Medicine
DX: E11.9 Type 2 diabetes mellitus without complications (principal); Z71.3 Dietary counseling and surveillance; Z79.4 Long term (current) use of insulin; Z79.84 Long term (current) use of oral hypoglycemic drugs
CPT/HCPCS: 97803

== ENCOUNTER → 2024-12-26 10:57 | Outpatient (CLI) | payer MEDICARE, OTHER, SELFPAY ==
[2024-12-26 12:24] LABS: Hematocrit 46.9 % (41-53); Hemoglobin 16.2 g/dL (13.5-17.5)
[2024-12-26 13:05] LABS: Blood Urea Nitrogen 44 mg/dL (9-20); Calcium 9.7 mg/dL (8.4-10.2); Carbon Dioxide 28 mmol/L (22-32); Chloride 99 mmol/L (98-107); Estimated Glomerular Filt Rate 42 mL/min (>60); Glucose 94 mg/dL (70-99); HEMOLYSIS < 15 (0-50); Potassium 4.6 mmol/L (3.4-5.1); Sodium 137 mmol/L (137-145)
[2024-12-26 14:28] LABS: Creatinine Urine Random 106.75 mg/dL; Protein (Total) Urine Random 79 mg/dL (0-12); Protein Creatinine Ratio Urine 0.74 GRAM/24H
[2024-12-27 10:36] LABS: Parathyroid Hormone Int 53 pg/mL (15-65)
== END ==
PROVIDERS: PCP Internal Medicine; Referring Provider Internal Medicine; Visit Provider Student in an Organized Health Care Education/Training Program
DX: N05.9 Unspecified nephritic syndrome with unspecified morphologic changes (principal); D70.9 Neutropenia, unspecified; D63.1 Anemia in chronic kidney disease; R80.9 Proteinuria, unspecified; N25.81 Secondary hyperparathyroidism of renal origin
CPT/HCPCS: 36415; 80048; 82570; 83970; 84156; 85014; 85018

== ENCOUNTER → 2025-01-19 15:52 | Outpatient (CLI) | payer MEDICARE, OTHER, SELFPAY ==
[2025-01-19 17:26] LABS: Hemoglobin A1C% w Est Avg Glu 7.6 % (4.0-6.0)
[2025-01-19 17:47] LABS: BUN Creatinine Ratio 23.5 (6-22); Blood Urea Nitrogen 35 mg/dL (9-20); Calcium 9.4 mg/dL (8.4-10.2); Carbon Dioxide 30 mmol/L (22-32); Chloride 98 mmol/L (98-107); Estimated Glomerular Filt Rate 52 mL/min (>60); Glucose 162 mg/dL (70-99); HEMOLYSIS 49 (0-50); Potassium 4.7 mmol/L (3.4-5.1); Sodium 136 mmol/L (137-145)
[2025-01-19 18:00] LABS: TSH w/ Reflex to FT4 1.27 uIU/mL (0.47-4.68)
== END ==
PROVIDERS: PCP Internal Medicine; Referring Provider Internal Medicine; Visit Provider Internal Medicine
DX: E11.3293 Type 2 diabetes mellitus with mild nonproliferative diabetic retinopathy without macular edema, bilateral (principal); E03.9 Hypothyroidism, unspecified; Z79.4 Long term (current) use of insulin
CPT/HCPCS: 36415; 80048; 83036; 84443

== ENCOUNTER → 2025-02-23 15:49 | Outpatient (CLI) | payer MEDICARE, OTHER, SELFPAY ==
--- NOTE | 2025-02-23 15:57 | DIAB.FU ---
Follow-up Diabetes Medical Nutrition Therapy Assessment Name: Poncho Navarro Date: 02/23/25 Time: 4-430p Dx: Type II Diabetes Poncho presents for follow-up visit. Improved Bg but still having elevations. Reports Breonna would like to move to a grain free diet. Also open to avoiding dessert after dinner. States his dog is needing to be on a diet, which means he will be on a diet since the dog often eats food from family at the table. Sometimes chooses cottage cheese and peaches as HS snack. BG trends show most elevations after dinner and into the evening. May need more coverage for insulin for dinner. Was having some lows previously between 9a-12p but has added mid morning snack and reduced ac breakfast insulin. Weight based basal insulin 52u and 17u at meals. Currently on 28u BID basal and 12-18u ac 2-3x per day. Endorses kidney stone hx and current stone. Plans to make nephrology f/u appt. Drinking 80oz water and + sf beverage. Enjoys salt and challenging to reduce. Historically insulin pump not an option at this time. Cost prohibitive, and would like to revisit this next year after [facility]. Anthropometrics: Ht: 6' Wt: 230# 01/2025 reported 293# 03/2024 Physical Activity: active with job, sometimes walks the dog Self-Monitoring Blood Glucose: Uses Dexcom. increased time in range, but still having excessive time above goal. Switched receivers this week. Limited data on this marketing and outreach coordinator. TODAY TIR: 10% very high 32% high 58% in range 0% low or very low avmg/dl std dev: 46mg/dl variance: 25% GMI: % Last TIR: from marketing and outreach coordinator 9% very high 45% high 46% in range 0% low or very low avmg/dl std dev: 41mg/dl variance: 21.4% GMI: 7.9% Diabetes Medications: 28u Lantus BID 12-18u Aspart TID 500mg Metformin ER BID 25mg Jardiance Pertinent Labs: HgA1c: 8.8% 03/2024 8.7% 06/2024 7.5% 09/2024 7.6% 12/2024 cpeptide 9.8 H Past Medical History: (Last Reviewed 10/25/24 @ 11:54 by Michelle Stuart DO) Acquired hypothyroidism Cerebrovascular disease Chronic back pain Chronic diarrhea Chronic insomnia Coronary artery disease Depression, major, recurrent Diabetes mellitus with insulin therapy Essential hypertension Gout Hearing loss Loud work environment/gradual lossHistory of colonic polyps History of thyroid cancer Hypertension IgA nephropathy Kidney stones Mixed hyperlipidemia Osteoarthritis of right hip Primary osteoarthritis involving multiple joints Stage 3a chronic kidney disease (CKD) Type 2 diabetes mellitus with mild nonproliferative diabetic retinopathy without macular edema, 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 Vision disorder Stroke 1/ loss Nutrition Rx: Carbohydrates: Meal:45gSnack:15-30g Nutrition Diagnosis: -Excessive CHO intake r/t dessert time close to dinner CHO portion aeb pt report- continued Intervention: This participant was very receptive. Provided appropriate educational handouts. Discussed the following topics: Strategies for reducing CHO intake potential for changes to insulin at dinner to reduce hyperglycemia Strategies for reducing low BG risk Diet changes to improve BG Kidney stone MNT Created SMART goals for patient self-care and success. Goals: Start with salad each dinner- 50% met try to cut out dessert and Hs snack or move 3 hours from dinner- not met Consider increase in dinner ac insulin dose if hyperglycemia continues in evening- continue Cut out HS dessert- new Try higher dose insulin at dinner prn- new Ask nephrology what type of kidney stone he develops- new Follow-up: [facility] follow-up in 8 weeks per pt susan Barbour RDN, JAIME Certified Diabetes Care and Cane Flume Watcher P: [phone] Thank you for this referral
== END ==
LOC: DIET 15:50
PROVIDERS: PCP Internal Medicine; Referring Provider Internal Medicine
DX: E11.65 Type 2 diabetes mellitus with hyperglycemia (principal); Z71.3 Dietary counseling and surveillance; Z79.4 Long term (current) use of insulin; Z79.84 Long term (current) use of oral hypoglycemic drugs
CPT/HCPCS: 97803

== ENCOUNTER → 2025-04-21 16:09 | Outpatient (CLI) | payer MEDICARE, OTHER, SELFPAY ==
[2025-04-21 17:19] LABS: Hemoglobin A1C% w Est Avg Glu 7.4 % (4.0-6.0)
[2025-04-21 17:43] LABS: Blood Urea Nitrogen 45 mg/dL (9-20); Calcium 9.3 mg/dL (8.4-10.2); Carbon Dioxide 28 mmol/L (22-32); Chloride 101 mmol/L (98-107); Estimated Glomerular Filt Rate 49 mL/min (>60); Glucose 169 mg/dL (70-99); HEMOLYSIS < 15 (0-50); Potassium 4.3 mmol/L (3.4-5.1); Sodium 136 mmol/L (137-145)
== END ==
PROVIDERS: PCP Internal Medicine; Referring Provider Internal Medicine; Visit Provider Internal Medicine
DX: E11.9 Type 2 diabetes mellitus without complications (principal); Z79.4 Long term (current) use of insulin
CPT/HCPCS: 36415; 80048; 83036

== ENCOUNTER → 2025-04-23 15:20 | Outpatient (CLI) | payer MEDICARE, OTHER, SELFPAY ==
--- NOTE | 2025-04-23 17:41 | DIAB.FU ---
Follow-up Diabetes Education Assessment Name: Poncho Navarro Date: 04/23/25 Time: 330-4p Dx: Type II Diabetes Poncho presents for follow-up visit. Slight improved hgA1c with 7.4%. Rx'd Mounjaro and states insurance will cover. Plans to start GLP1 tomorrow. Has questions regarding SE. Plans to reduce basal insulin based on PCP recs to 18u BID. If BG is elevated with low dose GLP1 and 18u BID, may want to consider 22u (20% reduction from 28u BID). Endorses some stress eating with home environment. Adult daughter and her child living with him and . Stress management technique is to walk his dog, which he usually does on weekends. Has tried higher doses on insulin at dinner, with some better BG results. Still experiencing elevated postprandial numbers. H/o trying grain free diet, which he felt gave him more energy, perhaps r/t improved BG. Historically insulin pump not an option at this time. Cost prohibitive, and would like to revisit this next year after nursing home. Sees PCP in Jun 2025 Sees nephrology 05/19/25 Anthropometrics: Ht: 6' Wt: 230# 01/2025 reported 293# 03/2024 Physical Activity: active with job, walks the dog on weekends Self-Monitoring Blood Glucose: Uses Dexcom. Less time >250mg/dl. Still experiencing excessive hyperglycemia. TODAY TIR: 6% very high 40% high 54% in range 0% low or very low avmg/dl std dev: 44mg/dl variance: 28% GMI: 7.6% Last TIR: from veneer sheet repairer 10% very high 32% high 58% in range 0% low or very low avmg/dl std dev: 46mg/dl variance: 25% GMI: % Diabetes Medications: 28u Lantus BID 12-20u Aspart TID 500mg Metformin ER BID 25mg Jardiance 2.5mg Mounjaro --- not started yet Pertinent Labs: HgA1c: 8.8% 03/2024 8.7% 06/2024 7.5% 09/2024 7.6% 12/2024 7.4% 03/2025 cpeptide 9.8 H Past Medical History: (Last Reviewed 10/25/24 @ 11:54 by Michelle Stuart DO) Acquired hypothyroidism Cerebrovascular disease Chronic back pain Chronic diarrhea Chronic insomnia Coronary artery disease Depression, major, recurrent Diabetes mellitus with insulin therapy Essential hypertension Gout Hearing loss Loud work environment/gradual lossHistory of colonic polyps History of thyroid cancer Hypertension IgA nephropathy Kidney stones Mixed hyperlipidemia Osteoarthritis of right hip Primary osteoarthritis involving multiple joints Stage 3a chronic kidney disease (CKD) Type 2 diabetes mellitus with mild nonproliferative diabetic retinopathy without macular edema, 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 Vision disorder Stroke 08/01 loss Intervention: This participant was very receptive. Provided appropriate educational handouts. Discussed the following topics: Glucose review and trends Mounjaro side effects, benefits, technique for injection Created SMART goals for patient self-care and success. Goals: Cut out HS dessert- not met Try higher dose insulin at dinner prn- met Ask nephrology what type of kidney stone he develops- not met Reduce basal insulin once starting GLP1- new stock broker supervisor and start weekly GLP1- new Follow-up: [facility] follow-up in 4 weeks Follow-up: [facility] follow-up in 2-3 weeks Elissa Barbour RDN, JAIME Certified Diabetes Care and Conference Specialist P: [phone] Thank you for this referral
== END ==
LOC: DIET 15:20
PROVIDERS: PCP Internal Medicine; Referring Provider Internal Medicine
DX: E11.65 Type 2 diabetes mellitus with hyperglycemia (principal); Z79.84 Long term (current) use of oral hypoglycemic drugs; Z79.4 Long term (current) use of insulin; Z71.3 Dietary counseling and surveillance
CPT/HCPCS: G0108

== ENCOUNTER → 2025-05-14 14:27 | Outpatient (CLI) | payer MEDICARE, OTHER, SELFPAY ==
[2025-05-14 15:27] LABS: Hematocrit 46.5 % (41-53); Hemoglobin 15.8 g/dL (13.5-17.5)
[2025-05-14 15:51] LABS: Blood Urea Nitrogen 30 mg/dL (9-20); Calcium 9.3 mg/dL (8.4-10.2); Carbon Dioxide 31 mmol/L (22-32); Chloride 97 mmol/L (98-107); Estimated Glomerular Filt Rate 51 mL/min (>60); Glucose 134 mg/dL (70-99); HEMOLYSIS < 15 (0-50); Potassium 4.2 mmol/L (3.4-5.1); Sodium 136 mmol/L (137-145)
[2025-05-14 16:01] LABS: Protein (Total) Urine Random 68 mg/dL (0-12); Protein Creatinine Ratio Urine 0.93 GRAM/24H
== END ==
PROVIDERS: PCP Internal Medicine; Referring Provider Internal Medicine; Visit Provider Student in an Organized Health Care Education/Training Program
DX: D70.9 Neutropenia, unspecified (principal); N05.9 Unspecified nephritic syndrome with unspecified morphologic changes; D63.1 Anemia in chronic kidney disease; N25.81 Secondary hyperparathyroidism of renal origin; R80.9 Proteinuria, unspecified
CPT/HCPCS: 36415; 80048; 82570; 83970; 84156; 85014; 85018

== ENCOUNTER → 2025-05-26 10:39 | Outpatient (CLI) | payer MEDICARE, OTHER, SELFPAY ==
[2025-05-26 12:17] LABS: Cholesterol 105 mg/dL (140-199); HDL Cholesterol 36 mg/dL (40-60); Triglycerides 178 mg/dL (35-150)
== END ==
PROVIDERS: PCP Internal Medicine; Referring Provider Internal Medicine; Visit Provider Internal Medicine Cardiovascular Disease
DX: E78.5 Hyperlipidemia, unspecified (principal)
CPT/HCPCS: 36415; 80061

== ENCOUNTER 2025-06-14 06:02 | Observation (INO) | payer MEDICARE, OTHER, SELFPAY ==
[2025-06-14] VITALS (26 sets, daily range): BP systolic 101–161; BP diastolic 72–90; PULSE 60–137; RESP 11–23; TEMP 36.5–37; O2SAT 92–98; BMI 28.7
--- NOTE | 2025-06-14 06:05 | ED.CHESTPAIN ---
HPI - Chest Pain <Cayetano Miramontes, DO - Last Filed: 06/14/25 07:19> General Chief Complaint: Arrhythmia/Palpitations Stated Complaint: Irregular heart beat, chest discomfort Time Seen by Provider: 06/14/25 06:05 History of Present Illness HPI narrative: 65-year-old male history of diabetes, CAD triple bypass, hypertension, dyslipidemia, CKD secondary to IgA nephropathy, hypothyroidism prior history of thyroid cancer increased his Mounjaro from 2.5-5 mg on Saturday and started to develop nausea vomiting diarrhea and as such was unable to take any of his medications on Saturday ans Saturday for which he started to notice irregular fast heart rate since late Saturday evening and today also along with shortness breath. Other than what is stated 14 point review of system is negative. Related Data Home Medications ?Medication ?Instructions ?Recorded ?Confirmed aspirin 81 mg tablet,delayed 81 mg PO DAILY ##0 06/23/08 06/14/25 release metoprolol succinate 50 mg 50 mg PO BID 03/29/22 06/14/25 tablet,extended release 24 hr atorvastatin 40 mg tablet 40 mg PO DAILY 04/13/24 06/14/25 chlorthalidone 25 mg tablet 12.5 mg PO DAILY 04/13/24 06/14/25 losartan 50 mg tablet 25 mg PO DAILY 10/15/24 06/14/25 Previous Rx's ?Medication ?Instructions ?Recorded flash glucose scanning reader #1 ea 11/09/22 (FreeStyle Sahrmin 2 Fountain) pen needle, diabetic 31 gauge x #100 ea 05/20/2308/01 (TRUEplus Pen Needle) flash glucose sensor (FreeStyle #6 ea 01/20/24 Sharmin 14 Day Sensor kit) allopurinol 100 mg tablet 100 mg PO DAILY #90 tabs 03/31/24 metformin 500 mg tablet,extended 500 mg PO BID #180 tabs 07/13/24 release 24 hr empagliflozin 25 mg tablet 25 mg PO DAILY #90 tabs 10/15/24 (Jardiance) insulin lispro 100 unit/mL 12 unit (0.12 mL) SUBCUT QAC #45 mL 12/29/24 subcutaneous pen (Humalog KwikPen (U-100) Insulin) insulin glargine 100 unit/mL (3 28 unit (0.28 mL) SUBCUT BID #15 mL 02/25/25 mL) subcutaneous pen (Lantus Solostar U-100 Insulin) tirzepatide 2.5 mg/0.5 mL 2.5 mg (0.5 mL) SUBCUT QWEEK #2 mL 05/17/25 subcutaneous pen injector levothyroxine 112 mcg tablet 224 mcg (2 x 112 mcg) PO DAILY 06/07/25 #180 tabs apixaban 5 mg tablet 5 mg PO BID #60 tabs 06/14/25 trazodone 50 mg tablet 50 - 100 mg (1 - 2 x 50 mg) PO 06/14/25 BEDTIME PRN sleep #90 tabs Allergies Allergy/AdvReac Type Severity Reaction Status Date / Time HAKAN Inhibitors (HAKAN AdvReac Intermediate Verified 04/21/25 15:27 INHIBITORS) duloxetine AdvReac Intermediate dysphoria Verified 04/21/25 15:27 metformin AdvReac Intermediate diarrhea Verified 04/21/25 15:27 (ER is tolerated) simvastatin (SIMVASTATIN) AdvReac Intermediate muscle Verified 04/21/25 15:27 aches, upset stomach Review of Systems <Cayetano Miramontes DO - Last Filed: 06/14/25 07:19> Review of Systems ROS Unobtainable: All systems reviewed & are unremarkable except as noted in HPI and below Patient History <Cayetano Miramontes DO - Last Filed: 06/14/25 07:19> Medical History Acquired hypothyroidism Cerebrovascular disease Chronic back pain Chronic diarrhea Chronic insomnia Coronary artery disease Depression, major, recurrent Diabetes mellitus with insulin therapy Essential hypertension Gout Hearing loss History of colonic polyps History of thyroid cancer Hypertension IgA nephropathy Kidney stones Mixed hyperlipidemia Osteoarthritis of right hip Polyneuropathy, unspecified Primary osteoarthritis involving multiple joints Stage 3a chronic kidney disease (CKD) Type 2 diabetes mellitus with mild nonproliferative diabetic retinopathy without macular edema, 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 Vision disorder Surgical History Anesthesia History of cholecystectomy (~10/2021) History of thyroidectomy Hx of CABG (~07/2021) S/P TURP (~2014) Family History Father Diabetes mellitus History of heart disease Hypertension Hyperlipidemia Mother Stroke Social History household members: spouse Smoking Status: Never smoker alcohol intake: current alcohol intake frequency: holidays/special occasions only Exam <Cayetano Miramontes DO - Last Filed: 06/14/25 07:19> Narrative Exam Narrative: GENERAL: [65] year old patient appears stated age. Well-developed patient, in mild distress. HEAD: Atraumatic. Normocephalic. EYES: Pupils equal round and reactive. Extraocular motions intact. No scleral icterus. No injection or drainage. ENT: Nose without bleeding, purulent drainage. Throat without erythema, tonsillar hypertrophy or exudate. Airway patent. NECK: Trachea midline. Non tender CARDIOVASCULAR: Tachycardic irregularly irregular RESPIRATORY: Clear to auscultation. Breath sounds equal bilaterally. No wheezes, rales, or rhonchi. GASTROINTESTINAL: Abdomen soft, non-tender, nondistended. EXTREMITIES: No edema or joint tenderness. BACK: Nontender without deformity or crepitance. No flank tenderness. NEURO: AOx3. SKIN: No rash or erythema of visible areas Initial Vital Signs Initial Vital Signs: Vital Signs Temperature 97.7 F 06/14/25 06:15 Pulse Rate 77 06/14/25 06:15 Respiratory Rate 18 06/14/25 06:15 Blood Pressure 138/77 06/14/25 06:15 Pulse Oximetry 97 06/14/25 06:15 Oxygen Delivery Method Room Air 06/14/25 06:15 <Sukh Bernardo MD - Last Filed: 06/14/25 16:01> Initial Vital Signs Initial Vital Signs: Vital Signs Temperature 97.7 F 06/14/25 06:15 Pulse Rate 77 06/14/25 06:15 Respiratory Rate 18 06/14/25 06:15 Blood Pressure 138/77 06/14/25 06:15 Pulse Oximetry 97 06/14/25 06:15 Oxygen Delivery Method Room Air 06/14/25 06:15 Course <Cayetano Miramontes DO - Last Filed: 06/14/25 07:19> Orders Ordered: ED Orders 06/14/25 08:12 Trop I [Troponin I] Stat Allopurinol (Allopurinol 100 Mg Tablet) 100 mg PO DAILY [facility] Last Admin: 06/14/25 14:51 Dose: 100 mg Documented By: NATHALIE Aspirin (Aspirin Ec 81 Mg Tablet) 81 mg PO DAILY [facility] Chlorthalidone (Chlorthalidone 25 Mg Tablet) 12.5 mg PO DAILY [facility] Ibuprofen (Ibuprofen 400 Mg Tablet) 400 mg PO Q4H [facility] Last Admin: 06/14/25 14:51 Dose: 400 mg Documented By: NATHALIE Insulin Glargine (Insulin Glargine 100 Unit/Ml 3ml Pen) 28 unit SUBCUT BID [facility] Insulin Human Lispro (Insulin Lispro 100 Unit/Ml 3ml Vial) 12 unit SUBCUT AC [facility] Insulin Human Lispro (Insulin Lispro 100 Unit/Ml 3ml Vial) 0 unit SUBCUT ACHS [facility]; Protocol Levothyroxine Sodium (Levothyroxine 112 Mcg Tablet) 224 mcg PO 0600 [facility] Losartan Potassium (Losartan 25 Mg Tablet) 25 mg PO DAILY [facility] Metformin HCl (Metformin Xr 500 Mg Tab.Er.24h) 500 mg PO BID [facility] Metoprolol Succinate (Metoprolol Er 50 Mg Tablet) 50 mg PO BID [facility] Naloxone HCl (Naloxone 0.4 Mg/Ml Vial) 0.2 mg IV Q2MIN PRN PRN Reason: Opiate Reversal Trazodone HCl (Trazodone 50 Mg Tablet) 50 mg PO BEDTIME PRN PRN Reason: Sleep Discontinued Medications Apixaban (Apixaban 5 Mg Tablet) 5 mg PO NOW ONE Stop: 06/14/25 09:39 Last Admin: 06/14/25 09:41 Dose: 5 mg Documented By: RENEE Aspirin (Aspirin 81 Mg Chew Tab) 324 mg PO NOW ONE Stop: 06/14/25 06:18 Last Admin: 06/14/25 06:30 Dose: 324 mg Documented By: Diltiazem HCl (Diltiazem 25 Mg/5 Ml Sdv) 25 mg IV NOW ONE Stop: 06/14/25 06:23 Last Admin: 06/14/25 06:30 Dose: 25 mg Documented By: Metoprolol Tartrate (Metoprolol Ir 25 Mg Tablet) 50 mg PO NOW ONE Stop: 06/14/25 10:32 Last Admin: 06/14/25 10:42 Dose: 50 mg Documented By: RENEE Vital Signs Vital signs: Vital Signs - 8 hr 06/14/25 08:15 06/14/25 08:15 06/14/25 08:30 Pulse Rate 83 Respiratory Rate 15 Blood Pressure 115/78 130/76 Pulse Oximetry 94 06/14/25 08:30 06/14/25 08:46 06/14/25 08:46 Pulse Rate 89 89 Respiratory Rate 15 16 Blood Pressure 124/85 Pulse Oximetry 94 96 06/14/25 09:00 06/14/25 09:00 06/14/25 09:15 Pulse Rate 92 H Respiratory Rate 15 Blood Pressure 111/75 118/78 Pulse Oximetry 94 06/14/25 09:15 06/14/25 09:30 06/14/25 09:30 Pulse Rate 90 88 Respiratory Rate 14 13 Blood Pressure 116/87 Pulse Oximetry 92 96 06/14/25 09:45 06/14/25 09:45 06/14/25 10:00 Pulse Rate 99 H Respiratory Rate 19 Blood Pressure 133/85 142/90 H Pulse Oximetry 96 06/14/25 10:00 06/14/25 10:15 06/14/25 10:15 Pulse Rate 106 H 102 H Respiratory Rate 22 16 Blood Pressure 143/74 H Pulse Oximetry 94 96 06/14/25 10:30 06/14/25 10:30 Pulse Rate 62 Respiratory Rate 23 Blood Pressure 144/81 H Pulse Oximetry 96 <Sukh Bernardo MD - Last Filed: 06/14/25 16:01> Orders Ordered: ED Orders 06/14/25 08:12 Trop I [Troponin I] Stat Allopurinol (Allopurinol 100 Mg Tablet) 100 mg PO DAILY [facility] Last Admin: 06/14/25 14:51 Dose: 100 mg Documented By: NATHALIE Aspirin (Aspirin Ec 81 Mg Tablet) 81 mg PO DAILY [facility] Chlorthalidone (Chlorthalidone 25 Mg Tablet) 12.5 mg PO DAILY [facility] Ibuprofen (Ibuprofen 400 Mg Tablet) 400 mg PO Q4H [facility] Last Admin: 06/14/25 14:51 Dose: 400 mg Documented By: CLP Insulin Glargine (Insulin Glargine 100 Unit/Ml 3ml Pen) 28 unit SUBCUT BID [facility] Insulin Human Lispro (Insulin Lispro 100 Unit/Ml 3ml Vial) 12 unit SUBCUT AC [facility] Insulin Human Lispro (Insulin Lispro 100 Unit/Ml 3ml Vial) 0 unit SUBCUT ACHS [facility]; Protocol Levothyroxine Sodium (Levothyroxine 112 Mcg Tablet) 224 mcg PO 0600 [facility] Losartan Potassium (Losartan 25 Mg Tablet) 25 mg PO DAILY [facility] Metformin HCl (Metformin Xr 500 Mg Tab.Er.24h) 500 mg PO BID [facility] Metoprolol Succinate (Metoprolol Er 50 Mg Tablet) 50 mg PO BID [facility] Naloxone HCl (Naloxone 0.4 Mg/Ml Vial) 0.2 mg IV Q2MIN PRN PRN Reason: Opiate Reversal Trazodone HCl (Trazodone 50 Mg Tablet) 50 mg PO BEDTIME PRN PRN Reason: Sleep Discontinued Medications Apixaban (Apixaban 5 Mg Tablet) 5 mg PO NOW ONE Stop: 06/14/25 09:39 Last Admin: 06/14/25 09:41 Dose: 5 mg Documented By: RENEE Aspirin (Aspirin 81 Mg Chew Tab) 324 mg PO NOW ONE Stop: 06/14/25 06:18 Last Admin: 06/14/25 06:30 Dose: 324 mg Documented By: Diltiazem HCl (Diltiazem 25 Mg/5 Ml Sdv) 25 mg IV NOW ONE Stop: 06/14/25 06:23 Last Admin: 06/14/25 06:30 Dose: 25 mg Documented By: Metoprolol Tartrate (Metoprolol Ir 25 Mg Tablet) 50 mg PO NOW ONE Stop: 06/14/25 10:32 Last Admin: 06/14/25 10:42 Dose: 50 mg Documented By: RENEE Vital Signs Vital signs: Vital Signs - 8 hr 06/14/25 08:15 06/14/25 08:15 06/14/25 08:30 Pulse Rate 83 Respiratory Rate 15 Blood Pressure 115/78 130/76 Pulse Oximetry 94 06/14/25 08:30 06/14/25 08:46 06/14/25 08:46 Pulse Rate 89 89 Respiratory Rate 15 16 Blood Pressure 124/85 Pulse Oximetry 94 96 06/14/25 09:00 06/14/25 09:00 06/14/25 09:15 Pulse Rate 92 H Respiratory Rate 15 Blood Pressure 111/75 118/78 Pulse Oximetry 94 06/14/25 09:15 06/14/25 09:30 06/14/25 09:30 Pulse Rate 90 88 Respiratory Rate 14 13 Blood Pressure 116/87 Pulse Oximetry 92 96 06/14/25 09:45 06/14/25 09:45 06/14/25 10:00 Pulse Rate 99 H Respiratory Rate 19 Blood Pressure 133/85 142/90 H Pulse Oximetry 96 06/14/25 10:00 06/14/25 10:15 06/14/25 10:15 Pulse Rate 106 H 102 H Respiratory Rate 22 16 Blood Pressure 143/74 H Pulse Oximetry 94 96 06/14/25 10:30 06/14/25 10:30 Pulse Rate 62 Respiratory Rate 23 Blood Pressure 144/81 H Pulse Oximetry 96 MDM - Chest Pain <Cayetano C.H. Kulwinder, DO - Last Filed: 06/14/25 07:19> Lab Data 06/14/25 06:25 06/14/25 06:25 Labs: Lab Results 06/14/25 06/14/25 Range/Units 06:25 08:12 WBC 10.1 (4.5-11.0) X10^3/uL RBC 5.84 (4.5-5.9) X10^6/uL Hgb 18.2 H (13.5-17.5) g/dL Hct 53.3 H (41-53) % MCV 91.4 (80-100) fL MCH 31.2 (26-34) PG MCHC 34.1 (30-36) % RDW 13.3 (11.6-14.8) % Plt Count 249 (150-400) X10^3/uL Neut % (Auto) 67.0 (50-75) % Lymph % (Auto) 21.3 L (25-40) % Glynn % (Auto) 7.1 (3-14) % Eos % (Auto) 3.8 (2-4) % Baso % (Auto) 0.8 (0-2) % Neut # (Auto) 6800 (2971-3230) /uL Lymph # (Auto) 2200 (5865-8721) /uL Glynn # (Auto) 700 (0-900) /uL Eos # (Auto) 400 (0-450) /uL Baso # (Auto) 100 (0-100) /uL Sodium 137 (137-145) mmol/L Potassium 4.1 (3.4-5.1) mmol/L Chloride 99 (98-107) mmol/L Carbon Dioxide 27 (22-32) mmol/L BUN 31 H (9-20) mg/dL Creatinine 1.55 H (0.66-1.25) mg/dL Estimated GFR 49 L (>60) mL/min BUN/Creatinine Ratio 20.0 (6-22) Glucose 190 H (70-99) mg/dL Calcium 9.8 (8.4-10.2) mg/dL Magnesium 1.6 (1.6-2.3) mg/dL Total Bilirubin 1.5 H (0.2-1.3) mg/dL AST 32 (17-59) IU/L ALT 35 (<50) IU/L Alkaline Phosphatase 74 (38-126) U/L Troponin I 0.055 H 0.058 H (0.01-0.034) ng/mL NT-Pro-B Natriuret Pep 760 H (<125) pg/mL Total Protein 7.3 (6.3-8.2) g/dL Albumin 4.4 (3.5-5.0) g/dL Globulin 2.9 (1.7-4.1) g/dL Albumin/Globulin Ratio 1.5 (1.0-2.8) TSH 0.808 (0.47-4.68) uIU/mL ECG Data Interpretation: Afib RVR HR 119 IA undetermined QRS [address] inversion v4/5/6 Change from 10/25/24 MDM Narrative Medical decision making narrative: All lab work, vital signs, nurse triage note, medication list, previous ER visits, and all imaging studies reviewed. WBC 10.1 hemoglobin 18.2 platelets 249 sodium 137 potassium 4.1 chloride 99 CO2 27 BUN 31 and 1.55 glucose 190 magnesium 1.6 troponin 1st set 0.055 BNP 760 Chest x-ray official read pending. Patient given 25 mg IV diltiazem x1 now rate controlled in the 70s. Patient signed out to Dr. Bernardo at shift change pending final disposition. <Sukh Bernardo MD - Last Filed: 06/14/25 16:01> Lab Data Labs: Lab Results 06/14/25 06/14/25 Range/Units 06:25 08:12 WBC 10.1 (4.5-11.0) X10^3/uL RBC 5.84 (4.5-5.9) X10^6/uL Hgb 18.2 H (13.5-17.5) g/dL Hct 53.3 H (41-53) % MCV 91.4 (80-100) fL MCH 31.2 (26-34) PG MCHC 34.1 (30-36) % RDW 13.3 (11.6-14.8) % Plt Count 249 (150-400) X10^3/uL Neut % (Auto) 67.0 (50-75) % Lymph % (Auto) 21.3 L (25-40) % Glynn % (Auto) 7.1 (3-14) % Eos % (Auto) 3.8 (2-4) % Baso % (Auto) 0.8 (0-2) % Neut # (Auto) 6800 (8919-7264) /uL Lymph # (Auto) 2200 (7075-6293) /uL Glynn # (Auto) 700 (0-900) /uL Eos # (Auto) 400 (0-450) /uL Baso # (Auto) 100 (0-100) /uL Sodium 137 (137-145) mmol/L Potassium 4.1 (3.4-5.1) mmol/L Chloride 99 (98-107) mmol/L Carbon Dioxide 27 (22-32) mmol/L BUN 31 H (9-20) mg/dL Creatinine 1.55 H (0.66-1.25) mg/dL Estimated GFR 49 L (>60) mL/min BUN/Creatinine Ratio 20.0 (6-22) Glucose 190 H (70-99) mg/dL Calcium 9.8 (8.4-10.2) mg/dL Magnesium 1.6 (1.6-2.3) mg/dL Total Bilirubin 1.5 H (0.2-1.3) mg/dL AST 32 (17-59) IU/L ALT 35 (<50) IU/L Alkaline Phosphatase 74 (38-126) U/L Troponin I 0.055 H 0.058 H (0.01-0.034) ng/mL NT-Pro-B Natriuret Pep 760 H (<125) pg/mL Total Protein 7.3 (6.3-8.2) g/dL Albumin 4.4 (3.5-5.0) g/dL Globulin 2.9 (1.7-4.1) g/dL Albumin/Globulin Ratio 1.5 (1.0-2.8) TSH 0.808 (0.47-4.68) uIU/mL Imaging Data Chest x-ray: Radiologist's Impression: [address] [address] XRay Report Signed Patient: Poncho Navarro MR#: [id number] : 1960 Acct:[id number] Age/Sex: 65 / M Date of Service: 06/14/25 Loc: ED Accession Number: [id number] Procedure: XR chest 1V Ordering Provider: Cayetano Miramontes D.O. PROCEDURE: XR CHEST 1V INDICATIONS: chest pain TECHNIQUE: One view of the chest was acquired. COMPARISON: [facility], , XR CHEST 1V, 10/25/2024, 12:56. FINDINGS: Surgical changes and devices: Median sternotomy wires and surgical clips are seen. Lungs and pleura: Lungs are clear. No pleural effusions or pneumothorax. Mediastinum: Mediastinal contours appear normal. Heart size is normal. Bones and chest wall: No suspicious bony lesions. Overlying soft tissues appear unremarkable. IMPRESSION: No acute cardiopulmonary pathology. Dictated by: Aleksandr Aiken M.D. on 06/14/2025 at 7:26 Approved by: Aleksandr Aiken M.D. on 06/14/2025 at 7:26 MDM Narrative Medical decision making narrative: All lab work, vital signs, nurse triage note, medication list, previous ER visits, and all imaging studies reviewed. WBC 10.1 hemoglobin 18.2 platelets 249 sodium 137 potassium 4.1 chloride 99 CO2 27 BUN 31 and 1.55 glucose 190 magnesium 1.6 troponin 1st set 0.055 BNP 760 Chest x-ray official read pending. Patient given 25 mg IV diltiazem x1 now rate controlled in the 70s. Patient signed out to Dr. Bernardo at shift change pending final disposition. 7:[address] Bernardo: Sign-out from Dr. Miramontes. Laboratory studies are pending, 2nd troponin. We will likely need admission. Rate is controlled at this time. Patient is on baby aspirin and Plavix. 7:15 a.m.. I spoke with patient will need admission for new onset atrial fibrillation echocardiogram and monitoring. He agrees. 9:36 a.m.. Repeat troponin essentially unchanged. I spoke with meat process worker Dr. Hoffman, patient sees meat process worker Dr. Lewis, recommend stopping Plavix starting Eliquis continue metoprolol admit, echocardiogram needs to be done during course of stay.. May go up on metoprolol if needed. Rate is controlled at this time. Troponin is likely related to the atrial fibrillation, not a non-STEMI. No heparin at this time. First troponin 0.055, 2nd troponin 0.058 reviewed with her. 10:20 a.m.. Hospitalist, Dr Ling, at bedside to admit patient. Reviewed with them my discussion with cardiology services above. Discharge Plan Departure Patient Disposition: Admitted as Observation Clinical Impression: Atrial fibrillation with rapid ventricular response Admit Date/Time: 06/14/25 10:33 Admit Provider: Ari Ling
--- NOTE | 2025-06-14 06:06 | EKG_ITS ---
[facility] [address] [place] [address] Test Date: 2025-06-14 Pat Name: Poncho Navarro Department: [facility] Room: Gender: Male Immigration Investigator: JUDSON WATT : 1960 Requested By: Order Number: [id number] Reading MD: Cayetano Contreras MD Measurements Intervals [place] Rate: 119 P: DC: QRS: 57 QRSD: 104 T: 200 QT: 344 QTc: 483 Interpretive Statements Atrial fibrillation with rapid ventricular response Minimal voltage criteria for LVH, may be normal variant ( Angel product ) ST & T wave abnormality, consider inferolateral ischemia Electronically Signed On 06-14-2025 8:04:39 PST by Cayetano Contreras MD
--- NOTE | 2025-06-14 06:17 | DI.RAD.S_ITS ---
PROCEDURE: XR CHEST 1V INDICATIONS: chest pain TECHNIQUE: One view of the chest was acquired. COMPARISON: [facility], CR, XR CHEST 1V, 10/25/2024, 12:56. FINDINGS: Surgical changes and devices: Median sternotomy wires and surgical clips are seen. Lungs and pleura: Lungs are clear. No pleural effusions or pneumothorax. Mediastinum: Mediastinal contours appear normal. Heart size is normal. Bones and chest wall: No suspicious bony lesions. Overlying soft tissues appear unremarkable. IMPRESSION: No acute cardiopulmonary pathology. Dictated by: Aleksandr Aiken M.D. on 06/14/2025 at 7:26 Approved by: Aleksandr Aiken M.D. on 06/14/2025 at 7:26
[2025-06-14] MEDS: ASPIRIN 81 MG CHEW TAB 324 MG PO (06:30)
[2025-06-14 06:33] LABS: Add Manual Diff / Slide Review NO; Hematocrit 53.3 % (41-53); Hemoglobin 18.2 g/dL (13.5-17.5); Lymphocytes Absolute Auto 2200 /uL (1100-4500); Mean Corpuscular HGB Conc 34.1 % (30-36); Mean Corpuscular Hemoglobin 31.2 PG (26-34); Mean Corpuscular Volume 91.4 fL (80-100); Platelet Count 249 X10^3/uL (150-400)
[2025-06-14 06:45] LABS: Alanine Aminotransferase 35 IU/L (<50); Albumin 4.4 g/dL (3.5-5.0); Albumin Globulin Ratio 1.5 (1.0-2.8); Alkaline Phosphatase 74 U/L (38-126); Blood Urea Nitrogen 31 mg/dL (9-20); Calcium 9.8 mg/dL (8.4-10.2); Carbon Dioxide 27 mmol/L (22-32); Chloride 99 mmol/L (98-107); Estimated Glomerular Filt Rate 49 mL/min (>60); Globulin 2.9 g/dL (1.7-4.1); Glucose 190 mg/dL (70-99); HEMOLYSIS 21 (0-50); Magnesium 1.6 mg/dL (1.6-2.3); Potassium 4.1 mmol/L (3.4-5.1); Sodium 137 mmol/L (137-145); Total Protein 7.3 g/dL (6.3-8.2)
[2025-06-14 06:57] LABS: NT-proBNP (BNP-Adult 18+) 760 pg/mL (<125); Troponin I 0.055 ng/mL (0.01-0.034)
[2025-06-14 08:06] LABS: Thyroid Stimulating Hormone 0.808 uIU/mL (0.47-4.68)
[2025-06-14 08:56] LABS: Troponin I 0.058 ng/mL (0.01-0.034)
[2025-06-14] MEDS: APIXABAN 5 MG TABLET PO (09:41)
[2025-06-14] MEDS: METOPROLOL IR 25 MG TABLET 50 MG PO (10:42)
--- NOTE | 2025-06-14 13:12 | CM.DANOTE ---
DCP Assessment Note: Pt is a 65yo male, resident of [place], is admitted for Atrial Fibrillation with Rapid Ventricular Response. Pt lives in a house with his , Breonna. Pt's Primary Care Provider is Dr. Mike Correa and [facility] Medicare [facility] Reviewed chart and discussed with multidisciplinary team pt's medical status and initial discharge needs. Per ED Provider, pt to obtain echocardiogram while admitted. DCP met w/patient at bedside; introduced self and role. Patient was found in bed, alert and oriented, cooperative with assessment. Pt confirmed living situation and good support in spouse. Pt expressed preference in discharge home. Pt has a history of home health in 2021 but could not remember agency name. Plan: Acute care admission, anticipating discharge home with spouse to transport when cleared. CM team will follow closely for coordination of discharge plans. GUTIERREZ Guerra Discharge Planning/Care Management CM Discharge Assessment Start: 06/14/25 11:59 Freq: Status: Active Protocol: Document 06/14/25 12:54 MW (Rec: 06/14/25 13:09 MW [id number]) Discharge Planning Assessment Assigned Discharge [facility] [employer] Provider Dr. Mike Correa Insurance Medicare,[employer] DPOA/Assigned Breonna, Spouse Designee Name Contact Information [phone] Advance Directives? No History Provided By Patient,Medical Record Has Patient been No admitted in last 30 days? Prior Living House Arrangements Comment [facility] spouse Type of Drives own vehicle transporation used prior to admit Independent with ADL Yes 's Is patient alert and Yes oriented? Caregiver for No Another Discharge Plan Home Transportation , Breonna Arrangement Review Status In Process Please Provide Date 06/14/25 Initial DC Assessment Was Performed Next Review Type Continued Stay Review Document 06/14/25 13:12 MW (Rec: 06/14/25 13:12 MW [id number]) Discharge Planning Assessment Assigned Discharge [facility] [employer] Provider Dr. Mike Correa Insurance Medicare,[employer] DPOA/Assigned Breonna, Spouse Designee Name Contact Information [phone] Advance Directives? No History Provided By Patient,Medical Record Has Patient been No admitted in last 30 days? Prior Living House Arrangements Comment [facility] spouse Type of Drives own vehicle transporation used prior to admit Independent with ADL Yes 's Is patient alert and Yes oriented? Caregiver for No Another Discharge Plan Home Transportation , Breonna Arrangement Review Status In Process Please Provide Date 06/14/25 Initial DC Assessment Was Performed Next Review Type Continued Stay Review
[2025-06-14 14:35] LABS: Troponin I 0.054 ng/mL (0.01-0.034)
[2025-06-14] MEDS: IBUPROFEN 400 MG TABLET PO (14:51)
--- NOTE | 2025-06-14 15:12 | PM.HP.1 ---
History of Present Illness History of Present Illness Date Patient Seen: 06/14/25 Chief complaint: Irregular heart beat, chest discomfort Narrative: Chief complaint: AFib rapid ventricular response with palpitations and chest discomfort History of present illness: 65-year-old male with diabetes coronary disease status post triple bypass start him on Laci with increasing dosed had increasing abdominal discomfort inability to eat nausea and vomiting stopped his metformin in all of his other medications developed irregular rhythm and palpitations and chest discomfort this morning came to the emergency room for evaluation patient was given 25 mg of IV diltiazem. In the emergency department patient had EKG which demonstrated atrial fibrillation with rapid ventricular response T-wave inversion in anterior and lateral leads and in lead 1 Patient's baseline EKG as extensive T-wave inversion in anterior and lateral leads following his bypass surgery Review of systems: No fever or chills No cough No paresthesia No urinary Physical exam: No acute distress HEENT unremarkable Heart rate and rhythm initially irregular then regular rhythm (converted while I was listening) Lungs clear Abdomen benign Extremities no edema Neuro nonfocal Assessment and plan: Paroxysmal atrial fibrillation likely secondary to rebound effect because patient was unable to take his metoprolol due to GI side effects of his GLP 1 inhibitor therapy Continue aspirin Plavix changed to Eliquis per instructions from his Cardiology group Resume Lopressor Follow up with Cardiology upon discharge EKG with chronic deep T-wave inversions in anterior and lateral leads Copy of patient's baseline EKG given to him to show clinicians if he gets an EKG A total of 75 minutes were involved management of this patient including [id number] evaluation review of present EKGs and previous EKGs discussion with his Cardiology group [id number] evaluation with the patient [facility] Medical History Acquired hypothyroidism Cerebrovascular disease Chronic back pain Chronic diarrhea Chronic insomnia Coronary artery disease Depression, major, recurrent Diabetes mellitus with insulin therapy Essential hypertension Gout Hearing loss History of colonic polyps History of thyroid cancer Hypertension IgA nephropathy Kidney stones Mixed hyperlipidemia Osteoarthritis of right hip Polyneuropathy, unspecified Primary osteoarthritis involving multiple joints Stage 3a chronic kidney disease (CKD) Type 2 diabetes mellitus with mild nonproliferative diabetic retinopathy without macular edema, 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 Vision disorder Surgical History Anesthesia History of cholecystectomy (~10/2021) History of thyroidectomy Hx of CABG (~07/2021) S/P TURP (~2014) Family History Father Diabetes mellitus History of heart disease Hypertension Hyperlipidemia Mother Stroke Social History household members: spouse Smoking Status: Never smoker alcohol intake: current Meds Home Medications and Allergies Home Medications ?Medication ?Instructions ?Recorded ?Confirmed ?Type aspirin 81 mg tablet,delayed 81 mg PO DAILY ##0 06/23/08 06/14/25 History release metoprolol succinate 50 mg 50 mg PO BID 03/29/22 06/14/25 History tablet,extended release 24 hr flash glucose scanning reader #1 ea 11/09/22 06/14/25 Rx (FreeStyle Sharmin 2 Cap[place]) pen needle, diabetic 31 gauge x #100 ea 05/20/23 06/14/25 Rx 1/4 (TRUEplus Pen Needle) flash glucose sensor (FreeStyle #6 ea 01/20/24 06/14/25 Rx Sharmin 14 Day Sensor kit) allopurinol 100 mg tablet 100 mg PO DAILY #90 tabs 03/31/24 06/14/25 Rx atorvastatin 40 mg tablet 40 mg PO DAILY 04/13/24 06/14/25 History chlorthalidone 25 mg tablet 12.5 mg PO DAILY 04/13/24 06/14/25 History metformin 500 mg tablet,extended 500 mg PO BID #180 tabs 07/13/24 06/14/25 Rx release 24 hr empagliflozin 25 mg tablet 25 mg PO DAILY #90 tabs 10/15/24 06/14/25 Rx (Jardiance) losartan 50 mg tablet 25 mg PO DAILY 10/15/24 06/14/25 History insulin lispro 100 unit/mL 12 unit (0.12 mL) SUBCUT QAC #45 mL 12/29/24 06/14/25 Rx subcutaneous pen (Humalog KwikPen (U-100) Insulin) insulin glargine 100 unit/mL (3 28 unit (0.28 mL) SUBCUT BID #15 mL 02/25/25 06/14/25 Rx mL) subcutaneous pen (Lantus Solostar U-100 Insulin) tirzepatide 2.5 mg/0.5 mL 2.5 mg (0.5 mL) SUBCUT QWEEK #2 mL 05/17/25 06/14/25 Rx subcutaneous pen injector levothyroxine 112 mcg tablet 224 mcg (2 x 112 mcg) PO DAILY 06/07/25 06/14/25 Rx #180 tabs apixaban 5 mg tablet 5 mg PO BID #60 tabs 06/14/25 Rx trazodone 50 mg tablet 50 - 100 mg (1 - 2 x 50 mg) PO 06/14/25 06/14/25 Rx BEDTIME PRN sleep #90 tabs Allergies Allergy/AdvReac Type Severity Reaction Status Date / Time HAKAN Inhibitors (HAKAN AdvReac Intermediate Verified 04/21/25 15:27 INHIBITORS) duloxetine AdvReac Intermediate dysphoria Verified 04/21/25 15:27 metformin AdvReac Intermediate diarrhea Verified 04/21/25 15:27 (ER is tolerated) simvastatin (SIMVASTATIN) AdvReac Intermediate muscle Verified 04/21/25 15:27 aches, upset stomach Exam Vital Signs (past 8 hours): - 06/14/25 07:15 06/14/25 07:15 06/14/25 07:30 Temperature Pulse Rate 79 Respiratory Rate 12 Blood Pressure 101/78 161/74 H Pulse Oximetry 94 Oxygen Flow Rate 06/14/25 07:30 06/14/25 07:45 06/14/25 07:45 Temperature Pulse Rate 79 76 Respiratory Rate 15 Blood Pressure 126/72 Pulse Oximetry 92 95 Oxygen Flow Rate 06/14/25 08:00 06/14/25 08:00 06/14/25 08:15 Temperature Pulse Rate 83 Respiratory Rate 14 Blood Pressure 134/73 115/78 Pulse Oximetry 94 Oxygen Flow Rate 06/14/25 08:15 06/14/25 08:30 06/14/25 08:30 Temperature Pulse Rate 83 89 Respiratory Rate 15 15 Blood Pressure 130/76 Pulse Oximetry 94 94 Oxygen Flow Rate 06/14/25 08:46 06/14/25 08:46 06/14/25 09:00 Temperature Pulse Rate 89 Respiratory Rate 16 Blood Pressure 124/85 111/75 Pulse Oximetry 96 Oxygen Flow Rate 06/14/25 09:00 06/14/25 09:15 06/14/25 09:15 Temperature Pulse Rate 92 H 90 Respiratory Rate 15 14 Blood Pressure 118/78 Pulse Oximetry 94 92 Oxygen Flow Rate 06/14/25 09:30 06/14/25 09:30 06/14/25 09:45 Temperature Pulse Rate 88 99 H Respiratory Rate 13 19 Blood Pressure 116/87 Pulse Oximetry 96 96 Oxygen Flow Rate 06/14/25 09:45 06/14/25 10:00 06/14/25 10:00 Temperature Pulse Rate 106 H Respiratory Rate 22 Blood Pressure 133/85 142/90 H Pulse Oximetry 94 Oxygen Flow Rate 06/14/25 10:15 06/14/25 10:15 06/14/25 10:30 Temperature Pulse Rate 102 H Respiratory Rate 16 Blood Pressure 143/74 H 144/81 H Pulse Oximetry 96 Oxygen Flow Rate 06/14/25 10:30 06/14/25 10:45 06/14/25 10:45 Temperature Pulse Rate 62 63 Respiratory Rate 23 21 Blood Pressure 152/87 H Pulse Oximetry 96 97 Oxygen Flow Rate 06/14/25 11:00 06/14/25 11:00 06/14/25 11:15 Temperature Pulse Rate 64 Respiratory Rate 11 L Blood Pressure 134/76 128/78 Pulse Oximetry 96 Oxygen Flow Rate 06/14/25 11:15 06/14/25 11:30 06/14/25 11:30 Temperature Pulse Rate 63 64 Respiratory Rate 15 14 Blood Pressure 125/76 Pulse Oximetry 95 95 Oxygen Flow Rate 06/14/25 11:45 06/14/25 11:45 06/14/25 12:00 Temperature Pulse Rate 65 62 Respiratory Rate 22 17 Blood Pressure 128/76 Pulse Oximetry 95 94 Oxygen Flow Rate 06/14/25 12:00 06/14/25 12:15 06/14/25 12:15 Temperature Pulse Rate 60 Respiratory Rate 14 Blood Pressure 119/74 130/79 Pulse Oximetry 94 Oxygen Flow Rate 06/14/25 13:44 Temperature 98.6 F Pulse Rate 64 Respiratory Rate 17 Blood Pressure 160/90 H Pulse Oximetry 98 Oxygen Flow Rate 0 Oxygen Delivery Method Room Air Oxygen Flow Rate 0 Objective Labs 06/14/25 06:25 06/14/25 06:25 Labs: Laboratory Results - last 24 hr 06/14/25 06/14/25 06/14/25 06:25 08:12 13:55 WBC 10.1 RBC 5.84 Hgb 18.2 H Hct 53.3 H MCV 91.4 MCH 31.2 MCHC 34.1 RDW 13.3 Plt Count 249 Neut % (Auto) 67.0 Lymph % (Auto) 21.3 L [place] % (Auto) 7.1 Eos % (Auto) 3.8 Baso % (Auto) 0.8 Neut # (Auto) 6800 Lymph # (Auto) 2200 [place] # (Auto) 700 Eos # (Auto) 400 Baso # (Auto) 100 Sodium 137 Potassium 4.1 Chloride 99 Carbon Dioxide 27 BUN 31 H Creatinine 1.55 H Estimated GFR 49 L BUN/Creatinine Ratio 20.0 Glucose 190 H Calcium 9.8 Magnesium 1.6 Total Bilirubin 1.5 H AST 32 ALT 35 Alkaline Phosphatase 74 Troponin I 0.055 H 0.058 H 0.054 H NT-Pro-B Natriuret Pep 760 H Total Protein 7.3 Albumin 4.4 Globulin 2.9 Albumin/Globulin Ratio 1.5 TSH 0.808 Assessment & Plan Time-Based Coding :: [TOTAL MINUTES] spent with patient and on the chart (including review of chart, obtaining history, exam, reviewing outside data, placing orders, documenting exam and treatment plan, and counseling patient) on [DATE]. Quality VTE Deep Vein Thrombosis/Pulmonary Embolism Present on Admission: No
--- NOTE | 2025-06-14 15:48 | EKG_ITS ---
[place] [id number] [place] [id number] Test Date: 2025-06-14 Pat Name: Poncho Navarro Department: [facility] Room: 204 Gender: Male [employer]ill Operator: : 1960 Requested By: Order Number: [id number] Reading MD: Cayetano Contreras MD Measurements Intervals [place] Rate: 64 P: 43 WV: 132 QRS: 44 QRSD: 108 T: 176 QT: 454 QTc: 468 Interpretive Statements Normal sinus rhythm Minimal voltage criteria for LVH, may be normal variant ( Angel product ) Inferior infarct , age undetermined ST & Marked T wave abnormality, consider anterolateral ischemia Electronically Signed On 06-15-2025 6:46:39 PST by Cayetano Contreras MD
--- NOTE | 2025-06-14 16:16 | P.DS_ITS ---
History of Present Illness History of Present Illness Chief complaint: Irregular heart beat, chest discomfort Narrative: Chief complaint: AFib rapid ventricular response with palpitations and chest discomfort History of present illness: 65-year-old male with diabetes coronary disease status post triple bypass start him on Laci with increasing dosed had increasing abdominal discomfort inability to eat nausea and vomiting stopped his metformin in all of his other medications developed irregular rhythm and palpitations and chest discomfort this morning came to the emergency room for evaluation patient was given 25 mg of IV diltiazem. In the emergency department patient had EKG which demonstrated atrial fibrillation with rapid ventricular response T-wave inversion in anterior and lateral leads and in lead 1 Patient's baseline EKG as extensive T-wave inversion in anterior and lateral leads following his bypass surgery Review of systems: No fever or chills No cough No paresthesia No urinary Physical exam: No acute distress HEENT unremarkable Heart rate and rhythm regular Lungs clear Abdomen benign Extremities no edema Neuro nonfocal Assessment and plan: Paroxysmal atrial fibrillation likely secondary to rebound effect because patient was unable to take his metoprolol due to GI side effects of his GLP 1 inhibitor therapy * Continue aspirin * Plavix changed to Eliquis per instructions from his Cardiology group * Resume Lopressor * Follow up with Cardiology upon discharge EKG with chronic deep T-wave inversions in anterior and lateral leads * Copy of patient's baseline EKG given to him to show clinicians if he gets an EKG A total of 75 minutes were involved management of this patient including [id number] evaluation review of present EKGs and previous EKGs discussion with his Cardiology group [id number] evaluation with the patient Discharge Providers Provider Date of admission: 06/14/25 10:33 Discharge Date: 06/14/25 Primary care physician: Mike Correa MD Discharge provider: Ari Ling MD Exam Vital Signs (past 8 hours): - 06/14/25 08:30 06/14/25 08:30 06/14/25 08:46 Temperature Pulse Rate 89 Respiratory Rate 15 Blood Pressure 130/76 124/85 Pulse Oximetry 94 Oxygen Flow Rate 06/14/25 08:46 06/14/25 09:00 06/14/25 09:00 Temperature Pulse Rate 89 92 H Respiratory Rate 16 15 Blood Pressure 111/75 Pulse Oximetry 96 94 Oxygen Flow Rate 06/14/25 09:15 06/14/25 09:15 06/14/25 09:30 Temperature Pulse Rate 90 Respiratory Rate 14 Blood Pressure 118/78 116/87 Pulse Oximetry 92 Oxygen Flow Rate 06/14/25 09:30 06/14/25 09:45 06/14/25 09:45 Temperature Pulse Rate 88 99 H Respiratory Rate 13 19 Blood Pressure 133/85 Pulse Oximetry 96 96 Oxygen Flow Rate 06/14/25 10:00 06/14/25 10:00 06/14/25 10:15 Temperature Pulse Rate 106 H Respiratory Rate 22 Blood Pressure 142/90 H 143/74 H Pulse Oximetry 94 Oxygen Flow Rate 06/14/25 10:15 06/14/25 10:30 06/14/25 10:30 Temperature Pulse Rate 102 H 62 Respiratory Rate 16 23 Blood Pressure 144/81 H Pulse Oximetry 96 96 Oxygen Flow Rate 06/14/25 10:45 06/14/25 10:45 06/14/25 11:00 Temperature Pulse Rate 63 Respiratory Rate 21 Blood Pressure 152/87 H 134/76 Pulse Oximetry 97 Oxygen Flow Rate 06/14/25 11:00 06/14/25 11:15 06/14/25 11:15 Temperature Pulse Rate 64 63 Respiratory Rate 11 L 15 Blood Pressure 128/78 Pulse Oximetry 96 95 Oxygen Flow Rate 06/14/25 11:30 06/14/25 11:30 06/14/25 11:45 Temperature Pulse Rate 64 65 Respiratory Rate 14 22 Blood Pressure 125/76 Pulse Oximetry 95 95 Oxygen Flow Rate 06/14/25 11:45 06/14/25 12:00 06/14/25 12:00 Temperature Pulse Rate 62 Respiratory Rate 17 Blood Pressure 128/76 119/74 Pulse Oximetry 94 Oxygen Flow Rate 06/14/25 12:15 06/14/25 12:15 06/14/25 13:44 Temperature 98.6 F Pulse Rate 60 64 Respiratory Rate 14 17 Blood Pressure 130/79 160/90 H Pulse Oximetry 94 98 Oxygen Flow Rate 0 Oxygen Delivery Method Room Air Oxygen Flow Rate 0 Objective Labs 06/14/25 06:25 06/14/25 06:25 Labs: Laboratory Results - last 24 hr 06/14/25 06/14/25 06/14/25 06:25 08:12 13:55 WBC 10.1 RBC 5.84 Hgb 18.2 H Hct 53.3 H MCV 91.4 MCH 31.2 MCHC 34.1 RDW 13.3 Plt Count 249 Neut % (Auto) 67.0 Lymph % (Auto) 21.3 L [place] % (Auto) 7.1 Eos % (Auto) 3.8 Baso % (Auto) 0.8 Neut # (Auto) 6800 Lymph # (Auto) 2200 [place] # (Auto) 700 Eos # (Auto) 400 Baso # (Auto) 100 Sodium 137 Potassium 4.1 Chloride 99 Carbon Dioxide 27 BUN 31 H Creatinine 1.55 H Estimated GFR 49 L BUN/Creatinine Ratio 20.0 Glucose 190 H Calcium 9.8 Magnesium 1.6 Total Bilirubin 1.5 H AST 32 ALT 35 Alkaline Phosphatase 74 Troponin I 0.055 H 0.058 H 0.054 H NT-Pro-B Natriuret Pep 760 H Total Protein 7.3 Albumin 4.4 Globulin 2.9 Albumin/Globulin Ratio 1.5 TSH 0.808 PFSH Medical History Acquired hypothyroidism Cerebrovascular disease Chronic back pain Chronic diarrhea Chronic insomnia Coronary artery disease Depression, major, recurrent Diabetes mellitus with insulin therapy Essential hypertension Gout Hearing loss History of colonic polyps History of thyroid cancer Hypertension IgA nephropathy Kidney stones Mixed hyperlipidemia Osteoarthritis of right hip Polyneuropathy, unspecified Primary osteoarthritis involving multiple joints Stage 3a chronic kidney disease (CKD) Type 2 diabetes mellitus with mild nonproliferative diabetic retinopathy without macular edema, 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 Vision disorder Surgical History Anesthesia History of cholecystectomy (~10/2021) History of thyroidectomy Hx of CABG (~07/2021) S/P TURP (~2014) Family History Father Diabetes mellitus History of heart disease Hypertension Hyperlipidemia Mother Stroke Social History household members: spouse Smoking Status: Never smoker alcohol intake: current Discharge Plan Discharge Plan Patient Disposition: Home Discharge orders & Medications Prescriptions: New apixaban 5 mg tablet 5 mg PO BID Qty: 60 0RF Continued aspirin 81 mg Tablet,Delayed Release (Dr/Ec) 81 mg PO DAILY Qty: 0 (DME) pen needle, diabetic [TRUEplus Pen Needle] 31 gauge x 1/4 needle See Rx Instructions .ROUTE .MEDSUPPLY Qty: 100 6RF Rx Instructions: As directed for insulin; 5 needles daily (DME) FreeStyle Sharmin 14 Day Sensor Kit See Rx Instructions .Route Qty: 6 12RF Rx Instructions: As directed allopurinol 100 mg tablet 100 mg PO DAILY Qty: 90 3RF insulin lispro [Humalog KwikPen Insulin] 100 unit/mL insulin pen 12 unit SUBCUT QAC Qty: 45 6RF Rx Instructions: Give 12 units 30 minutes prior to each meal. insulin glargine [Lantus Solostar U-100 Insulin] 100 unit/mL (3 mL) insulin pen 28 unit SUBCUT BID Qty: 15 6RF tirzepatide 2.5 mg/0.5 mL pen injector 2.5 mg SUBCUT QWEEK Qty: 2 0RF Rx Instructions: for 4 weeks levothyroxine 112 mcg tablet 224 mcg PO DAILY Qty: 180 3RF trazodone 50 mg tablet 50 - 100 mg PO BEDTIME PRN (Reason: sleep) Qty: 90 3RF losartan 50 mg tablet 25 mg PO DAILY metformin 500 mg tablet extended release 24 hr 500 mg PO BID Qty: 180 3RF metoprolol succinate 50 mg tablet extended release 24 hr 50 mg PO BID (DME) FreeStyle Sharmin 2 Nora Misc See Rx Instructions .Route Qty: 1 0RF Rx Instructions: As directed chlorthalidone 25 mg tablet 12.5 mg PO DAILY atorvastatin 40 mg tablet 40 mg PO DAILY Jardiance 25 mg tablet 25 mg PO DAILY Qty: 90 3RF Discontinued clopidogrel 75 mg tablet 75 mg PO DAILY Follow up/Referrals: Mike Correa MD [Primary Care Provider, Internal Medicine] Visit Report/Discharge Packet Stand Alone Forms: Patient Portal/API, Stroke Signs & Symptoms Discharge Data Primary Care Provider: Mike Correa V Attending Provider: Ari Ling Admit Date/Time: 06/14/25 10:33 Quality VTE Deep Vein Thrombosis/Pulmonary Embolism Present on Admission: No
== END 2025-06-14 17:05 | disposition home or self-care (01) ==
LOC: ED 09:38 → AC 10:34
PROVIDERS: Family Medicine; Admitting Provider Internal Medicine; Emergency Provider Emergency Medicine; PCP Internal Medicine; Referring Provider Emergency Medicine; Visit Provider Internal Medicine
DX: I48.0 Paroxysmal atrial fibrillation (principal); I25.10 Atherosclerotic heart disease of native coronary artery without angina pectoris; E11.9 Type 2 diabetes mellitus without complications; I10 Essential (primary) hypertension; Z79.85 Long-term (current) use of injectable non-insulin antidiabetic drugs; Z79.84 Long term (current) use of oral hypoglycemic drugs; Z95.1 Presence of aortocoronary bypass graft; Z91.148 Patient's other noncompliance with medication regimen for other reason; R07.9 Chest pain, unspecified
CPT/HCPCS: 36415; 71045; 80053; 83735; 83880; 84443; 84484; 85025; 93005; 96374; 99284; G0378

== ENCOUNTER → 2025-06-23 05:18 | Outpatient (CLI) | payer MEDICARE, OTHER, SELFPAY ==
[2025-06-14 11:59] VITALS: BMI 28.7
== END ==
LOC: CAR 05:19
PROVIDERS: PCP Internal Medicine; Referring Provider Internal Medicine; Visit Provider Internal Medicine
DX: I48.91 Unspecified atrial fibrillation (principal); I48.92 Unspecified atrial flutter
CPT/HCPCS: 93246

== ENCOUNTER → 2025-07-09 07:48 | Outpatient (CLI) | payer MEDICARE, OTHER, SELFPAY ==
[2025-06-14 11:59] VITALS: BMI 28.7
[2025-07-09 08:04] LABS: Hematocrit 47.8 % (41-53); Hemoglobin 16.3 g/dL (13.5-17.5); Mean Corpuscular HGB Conc 34.0 % (30-36); Mean Corpuscular Hemoglobin 31.2 PG (26-34); Mean Corpuscular Volume 91.8 fL (80-100); Platelet Count 230 X10^3/uL (150-400)
[2025-07-09 08:25] LABS: Cholesterol 99 mg/dL (140-199); HDL Cholesterol 37 mg/dL (40-60); Magnesium 1.6 mg/dL (1.6-2.3); Triglycerides 177 mg/dL (35-150)
== END ==
PROVIDERS: PCP Internal Medicine; Referring Provider Internal Medicine Cardiovascular Disease; Visit Provider Internal Medicine Cardiovascular Disease
DX: E78.5 Hyperlipidemia, unspecified (principal); I10 Essential (primary) hypertension; I48.0 Paroxysmal atrial fibrillation
CPT/HCPCS: 36415; 80061; 83735; 85027

== ENCOUNTER → 2025-07-26 | Outpatient (CLI) | payer MEDICARE, OTHER, SELFPAY ==
[2025-06-14 11:59] VITALS: BMI 28.7
== END ==
LOC: NUCM 14:50
PROVIDERS: PCP Internal Medicine; Referring Provider Internal Medicine Cardiovascular Disease; Visit Provider Internal Medicine Cardiovascular Disease
DX: I48.0 Paroxysmal atrial fibrillation (principal); R94.39 Abnormal result of other cardiovascular function study; I25.10 Atherosclerotic heart disease of native coronary artery without angina pectoris; I10 Essential (primary) hypertension; E78.5 Hyperlipidemia, unspecified; Z95.1 Presence of aortocoronary bypass graft; Z79.01 Long term (current) use of anticoagulants
CPT/HCPCS: 78452; 93017; A9502; J2785

== ENCOUNTER → 2025-07-27 14:13 | Outpatient (CLI) | payer MEDICARE, OTHER, SELFPAY ==
[2025-06-14 11:59] VITALS: BMI 28.7
--- NOTE | 2025-07-27 14:15 | DI.ECHO.S_ITS ---
[facility] : : [address] : : [place] : : [id number] : : Phone: [phone] Echocardiogram Report + + :Name: KALIN PATEL Study Date: 07/27/2025 Height: 73 in : :[facility] ReadingLocation: Weight: 209 lb : : Gender: Male BSA: 2.2 m2 : :: 1960 Age: 65 yrs BP: 138/80 mmHg: :Reason For Study: [facility] : :Ordering Physician: BEATA, : :INGRIS Performed By: Jayy Kessler : :Referring: INGRIS COTA : + + Interpretation Summary The left ventricle is normal in size. Left ventricular ejection fraction is estimated to be 60 +/- 5%. Previous LVEF 55 to 60%. In some of the apical views, mid to distal anterolateral hypokinesis without any significant change from the previous study. Rest of the LV segments have good contractility. The right ventricle is mildly dilated. Preserved right ventricular systolic function. There is mild tricuspid regurgitation. The right ventricular systolic pressure is estimated to be at least 25 mmHg based on an estimated right atrial pressure of 3 mm Hg. Procedure: A two-dimensional transthoracic echocardiogram with color flow and Doppler was performed. The study quality was technically adequate. Comparison is made with the echocardiogram of 05/22/2021. The patient was in normal sinus rhythm during the exam. The heart rate ranged between 53-60 bpm during the study. Left Ventricle: The left ventricle is normal in size. Left ventricular wall thickness is mildly increased. There is no thrombus. Overall left ventricular systolic function is preserved. Left ventricular ejection fraction is estimated to be 60 +/- 5%. In some of the apical views, mid to distal anterolateral hypokinesis without any significant change from the previous study. Rest of the LV segments have good contractility. MV E/A: 0.91 Med Peak E' Torito: 4.1 cm/sec E/E' med: 14.6. Right Ventricle: The right ventricle is mildly dilated. Preserved right ventricular systolic function. Atria: The left atrial size is normal. The right atrium is moderately dilated. There is no Doppler evidence for an interatrial shunt. Mitral Valve: The mitral valve leaflets appear to open well. There is mild mitral annular calcification. There is no mitral valve stenosis. There is trace mitral regurgitation. BP 138/80 mmHg. Aortic Valve: The aortic valve is trileaflet. The aortic valve opens well. There is no aortic valve stenosis. No aortic regurgitation is present. Tricuspid Valve: There is mild tricuspid regurgitation. The right ventricular systolic pressure is estimated to be at least 25 mmHg based on an estimated right atrial pressure of 3 mm Hg. Pulmonic Valve: The pulmonic valve is not well seen, but is grossly normal. There is trace pulmonic regurgitation. Great Vessels: The aortic root is normal size. The ascending aorta is normal in size. The aortic arch could not be visualized. The pulmonary artery is normal size. The IVC is of normal diameter and collapses greater than 50% with a sniff. This suggests a low right atrial pressure of 3 mm Hg. Pericardium/ Pleura There is no pericardial effusion. MMode/2D Measurements & Calculations LVIDd: 4.7 cm LVOT diam: 2.1 cm LVIDs: 2.8 cm Ao root diam: 3.5 cm FS: 40.1 % asc Aorta Diam: 3.4 cm IVSd: 1.2 cm LVPWd: 1.2 cm LV maravilla. diameter/BSA (cm/m^2): 2.1 LV sys. diameter/BSA (cm/m^2): 1.3 LA A2 area: 18.2 cm2 RA long axis: 5.5 cm LA A4 area: 20.4 cm2 RA area: 17.3 cm2 LA length (vol): 5.4 cm RA vol: 46.3 ml LA vol: 57.9 ml RA : 21.1 ml/m2 LA vol index: 26.4 ml/m2 IVC diam: 1.7 cm RVD1 (basal): 4.3 cm RVD2 (mid): 3.9 cm TAPSE: 1.4 cm Doppler Measurements & Calculations Ao V2 max: 114.8 cm/sec LVOT Max Torito: 86.6 cm/sec Ao V2 mean: 74.4 cm/sec LV V1 max P.0 mmHg Ao max P.3 mmHg LV V1 VTI: 18.4 cm Ao mean P.7 mmHg AYO(I,D): 3.0 cm2 Ao V2 VTI: 21.7 cm AYO(V,D): 2.7 cm2 sev ratio: 0.85 AYO indexed to BSA (cm^2/m^2): 1.4 MV E max torito: 60.4 cm/sec TR max torito: 232.4 cm/sec MV A max torito: 66.1 cm/sec TR max P.6 mmHg MV E/A: 0.91 PA V2 max: 90.4 cm/sec Med Peak E' Torito: 4.1 cm/sec PA V2 mean: 65.0 cm/sec E/E' med: 14.6 PA mean P.9 mmHg Lat Peak E' Torito: 8.9 cm/sec PA pr(Accel): 50.7 mmHg E/E' lat: 6.8 E/e' average: 10.7 MV dec time: 0.22 sec SV(LVOT): 65.9 ml Qp/Qs (V,Ao): 1.0/2.5 Qp/Qs (V,LVOT): 1.4/1.0 Reading Physician:04:08 PM
--- NOTE | 2025-07-27 17:14 | DI.NM.S_ITS ---
DATE OF SERVICE: 07/27/2025 Pharmacological Perfusion Study INDICATION: Atrial fibrillation, abnormal troponin, known history of bypass surgery. RADIOPHARMACEUTICAL: 25.6 millicurie technetium-99m Myoview IV was injected at stress and 25.3 millicurie technetium-99m Myoview IV was injected at rest. CARDIAC STRESS: The patient underwent IV Lexiscan perfusion study under the supervision of an attending staff using standard IV Lexiscan as per protocol. The patient remained hemodynamically stable. Baseline rhythm was sinus with mild sinus bradycardia and diffuse T-wave inversion. During stress, no new convincing ischemic changes. No new significant arrhythmias. No chest pain. Minimal dyspnea during Lexiscan. Resting peak blood pressure 116/70. RAW DATA: There is increased subdiaphragmatic activity. GATED STUDY: Resting LV ejection fraction 61% and stress LV ejection fraction 69% without any significant wall motion abnormalities. Resting end-diastolic volume 114 mL. TID ratio 0.96, which is within normal limits. MYOCARDIAL PERFUSION: Stress supine and resting supine and stress prone images were compared to each other. There appears to be predominantly fixed, small size perfusion defect of basal inferior wall extending into the basal inferolateral wall. In addition to that, there is small to moderate size, mild reversible ischemia of anterolateral wall. 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 Resting LV ejection fraction 61% and stress LV ejection fraction 69%. Summed stress score 8, summed rest score 4, and summed difference score 4. Poncho Navarro - JUAN/keon/SHARMIN doc#: [id number]/job#: [id number] dd: 07/27/2025 16:40:00 dt: 07/27/2025 16:57:00 DICTATING MD/COPIES TO: Seamus Lewis MD COPIES MNE: OSCAR;
== END ==
LOC: NUCM 14:15
PROVIDERS: PCP Internal Medicine; Referring Provider Internal Medicine Cardiovascular Disease; Visit Provider Internal Medicine Cardiovascular Disease
DX: I48.0 Paroxysmal atrial fibrillation (principal); I07.1 Rheumatic tricuspid insufficiency; I25.10 Atherosclerotic heart disease of native coronary artery without angina pectoris; I10 Essential (primary) hypertension; E78.5 Hyperlipidemia, unspecified; R94.39 Abnormal result of other cardiovascular function study; Z95.1 Presence of aortocoronary bypass graft
CPT/HCPCS: 93306